=== PATIENT | male | born 1990 | race American Indian/Alaskan Native ===

== ENCOUNTER 2018-06-11 18:56 | Inpatient (IN) | payer OTHER ==
[2018-06-11] MEDS ORDERED: Naloxone 0.4 mg/ml Inj (Adult) IVP STA ×2 (19:15→19:44)
--- NOTE | 2018-06-11 19:20 | ED PDOC ---
Arrival/HPI - General Chief Complaint: Substance Abuse Time Seen by Provider: 06/11/18 19:09 Historian: Patient, Partner - History of Present Illness Narrative History of Present Illness (Text): you were treated in the ED today for hx of overdose and per your computer numerical control programmer you took percocet 3 tabs/dip/alcohol to get high and otherwise without any nausea/ vomiting/headache/dizziness/difficulty breathing/chest pain/abdomen pain/ numbness/tingling/loss of limb function/pain with urination. Time/Duration: 4-6 hours Symptom Onset: Gradual Symptom Course: Unchanged Quality: Other (no pain) Activities at Onset: Rest Context: Sitting Past Medical History - Provider Review Nursing Documentation Reviewed: Yes - Travel History Have you recently traveled outside [place] w/in the past 3 mons?: No - Infectious Disease Hx of Infectious Diseases: None - Cardiac Hx Cardiac Disorders: No - Pulmonary Hx Respiratory Disorders: No - Neurological Hx Neurological Disorder: No - Endocrine/Metabolic Hx Endocrine Disorders: No - Psychiatric Hx Psychophysiologic Disorder: No Hx Substance Use: Yes - Anesthesia Hx Anesthesia: No Family/Social History - Physician Review Nursing Documentation Reviewed: Yes Family/Social History: No Known Family HX Smoking Status: Current Some Days Smoker Hx Alcohol Use: Yes Hx Substance Use: Yes Substance used: pcp Allergies/Home Meds Allergies/Adverse Reactions: Allergies No Known Allergies Allergy (Unverified 06/11/18 19:10) Home Medications: Home Meds Medication Instructions Recorded Confirmed No Known Home Med 06/11/18 06/11/18 Review of Systems - Review of Systems Constitutional: Normal Eyes: Normal ENT: Normal Respiratory: Normal Cardiovascular: Normal Gastrointestinal: Normal Genitourinary Male: Normal Musculoskeletal: Normal Skin: Normal Neurological: Normal Endocrine: Normal Hemo/Lymphatic: Normal Psychiatric: Normal Physical Exam Vital Signs Reviewed: Yes Vital Signs Temp Pulse Resp BP Pulse Ox 06/11/18 20:27 110 H 18 131/78 98 06/11/18 19:04 98.7 F 118 H 18 149/79 96 Temperature: Afebrile Blood Pressure: Hypertensive Pulse: Tachycardic Respiratory Rate: Normal Appearance: Positive for: Well-Appearing, Non-Toxic, Comfortable Pain Distress: None Mental Status: Positive for: Lethargic - Systems Exam Head: Present: Atraumatic, Normocephalic Pupils: Present: PERRL Extroacular Muscles: Present: EOMI Conjunctiva: Present: Normal Ears: Present: Normal Mouth: Present: Moist Mucous Membranes Pharnyx: Present: Normal Nose (External): Present: Atraumatic Nose (Internal): Present: Normal Inspection Neck: Present: Normal Range of Motion, Other (no c--t-l spinal or paraspinal tenderness) Respiratory/Chest: Present: Clear to Auscultation, Good Air Exchange Cardiovascular: Present: Regular Rate and Rhythm Abdomen: No: Tenderness, Distention, Normal Bowel Sounds, Peritoneal Signs, Rebound, Guarding, McBurney's Point Tender, Rovsing's Sign Present, Hernias, Feeding Tubes, Ostomy Tubes, Mass/Organomegaly, Scars, Other Back: Present: Normal Inspection Upper Extremity: Present: Normal Inspection Lower Extremity: Present: Normal Inspection Neurological: Present: CN II-XII Intact, Motor Func Grossly Intact Skin: Present: Warm, Normal Color Psychiatric: Present: Lethargic Medical Decision Making ED Course and Treatment: you were treated in the ED today for hx of overdose and per your computer numerical control programmer you took percocet 3 tabs/dip/alcohol to get high and otherwise without any nausea/ vomiting/headache/dizziness/difficulty breathing/chest pain/abdomen pain/ numbness/tingling/loss of limb function/pain with urination. You were otherwise breathing easily, good strength/sensation, clear lungs, no abdomen tenderness, no fever temp 98.7, fast heart rate 118____, stable breathing rate 18, excellent oxygen level 96% room air, elevated blood pressure 149/79 which we recommend repeat in 2-3 days primary care office to determine further treatment , you have blood tests no infection count 37, stable blood level hemoglobin 15/ platelets 197. anion gap 23 co2 20 Cr 1.9 heart blood test 0.[address] imaging prior to anticoagluation, radiology chest xray initial no acute, ECG sinus tachycardia, narcan, intravenous fluids, zosyn, observation done in the ED. 06/11/18 20:09 06/11/18 20:10 06/11/18 20:24 d/w Dr. Funk regarding overdose, leukocytosis 37.7, maintaining airway easily but lethargic, cxr no acute findings, pending cardiology consult and ct head and ct chest/abdomen/pelvis and Dr. Funk who accepted the patient and who agreed hold off anticoagulation till imaging completed, will fu imaging and cardiology further input. 06/11/18 20:38 d/w Dr. Chan cardiology regarding troponin 0.37 and ECG sinus tachycardia, he stated VQ nuclear med scan, admit to unit and repeat troponin in the morning. 06/11/18 21:06 06/11/18 21:08 patient sitting up periodically, opens eyes, moving all extremities, but not answering questions, but easily maintaining airway. Reassessment Condition: Improving,but remains with symptoms - Lab Interpretations Lab Results: 06/11/18 19:13 06/11/18 19:13 Lab Results 06/11/18 20:15: pO2 231 H, VBG pH 7.25 L, VBG pCO2 56.0, VBG HCO3 24.6, VBG Total CO2 26.3, VBG O2 Sat (Calc) 100.6 H, VBG Base Excess -3.5 L, VBG Potassium 3.8, Glucose 48 L, Lactate 4.7 H*, FiO2 21.0, Sodium 138.0, Chloride 106.0, Venous Blood Potassium 3.8 06/11/18 20:15: Lactic Acid 4.3 H* 06/11/18 20:15: Urine Color Yellow, Urine Appearance Clear, Urine pH 6.0, Ur Specific [place] 1.025, Urine Protein 30 H, Urine Glucose (UA) Negative, Urine Ketones Negative, Urine Blood Trace-intact H, Urine Nitrate Negative, Urine Bilirubin Negative, Urine Urobilinogen 0.2, Ur Leukocyte Esterase Negative, Urine RBC 0 - 2, Urine WBC Negative, Ur Epithelial Cells None, Urine Bacteria Neg 06/11/18 19:15: POC Glucose (mg/dL) 113 H 06/11/18 19:13: Alcohol, Quantitative 23 H 06/11/18 19:13: Salicylates < 1 L, Acetaminophen < 10.0 L 06/11/18 19:13: Sodium 140, Potassium 3.9, Chloride 101, Carbon Dioxide 20 L, Anion Gap 23 H, BUN 14, Creatinine 1.9 H, Est GFR ( Amer) 51, Est GFR ( Non-Af Amer) 42, Random Glucose 139 H, Calcium 8.8, Magnesium 2.6 H, Total Bilirubin 0.7, AST 72 H, ALT 34, Alkaline Phosphatase 77, Lactate Dehydrogenase 942 H, Total Creatine Kinase 588 H, CK-MB (CK-2) 6.3 H, CK-MB (CK-2) % 1.1 L, Troponin I 0.73 H*, Total Protein 8.2, Albumin 4.8, Globulin 3.3, Albumin/ Globulin Ratio 1.5 06/11/18 19:13: PT 12.2, INR 1.07, APTT 31.0 06/11/18 19:13: WBC 37.7 H*, RBC 5.29, Hgb 15.4, Hct 44.7, MCV 84.5, MCH 29.1, MCHC 34.5, RDW 14.6 H, Plt Count 197, MPV 11.5 H, Gran % 90.8 H, Lymph % (Auto) 5.6 L, [place] % (Auto) 3.3, Eos % (Auto) 0.2 L, Baso % (Auto) 0.1, Gran # 34.21 H , Lymph # (Auto) 2.1, [place] # (Auto) 1.2 H, Eos # (Auto) 0.1, Baso # (Auto) 0.04 , Neutrophils % (Manual) 81 H, Band Neutrophils % 4 H, Lymphocytes % (Manual) 8 L, Atypical Lymphs % 1 H, Monocytes % (Manual) 2, Metamyelocytes % 4, Platelet Evaluation Normal I have reviewed the lab results: Yes - RAD Interpretation Radiology Orders: 06/11/18 19:12 CHEST PORTABLE [RAD] Stat 06/11/18 19:43 HEAD W/O CONTRAST [CT] Stat 06/11/18 20:21 CHEST,ABDOMEN, PELVIS W/O CONT [CT] Stat 06/11/18 20:35 LUNG PERF & VENT SCAN [NM] Stat Boarder Machine: ED Physician (cxr no acute) - EKG Interpretation Interpreted by ED Physician: Yes (sinus tachycardia, QT 332/QTc 465) Type: 12 lead EKG - Medication Orders Current Medication Orders: Sodium Chloride (Sodium Chloride 0.9%) 1,000 mls @ 100 mls/hr IV .Q10H HECTOR Last Admin: 06/11/18 19:30 Dose: 100 mls/hr eMAR Start Stop Document 06/11/18 19:30 AD (Rec: 06/11/18 19:47 AD [id number]) Intravenous Solution Start Date 06/11/18 Start Time 19:47 Sodium Chloride (Sodium Chloride 0.9%) 1,000 mls @ 999 mls/hr IV .Q1H1M STA Stop: 06/11/18 21:24 Last Admin: 06/11/18 20:40 Dose: 999 mls/hr eMAR Start Stop Document 06/11/18 20:40 AD (Rec: 06/11/18 20:40 AD [id number]) Intravenous Solution Start Date 06/11/18 Start Time 20:40 Discontinued Medications Piperacillin Sod/Tazobactam Sod (Zosyn 4.5 Gm In Ns 100ml) 4.5 gm in 100 mls @ 200 mls/hr IVPB STAT STA PRN Reason: Protocol Stop: 06/11/18 20:40 Last Admin: 06/11/18 20:38 Dose: 200 mls/hr eMAR Start Stop Document 06/11/18 20:38 AD (Rec: 06/11/18 20:39 AD [id number]) Intravenous Solution Start Date 06/11/18 Start Time 20:39 Naloxone HCl (Narcan) 0.4 mg IVP STAT STA Stop: 06/11/18 19:16 Last Admin: 06/11/18 19:25 Dose: 0.4 mg IVP Administration Document 06/11/18 19:25 AD (Rec: 06/11/18 19:47 AD [id number]) Charges for Administration # of IVP Administrations 1 Naloxone HCl (Narcan) 0.4 mg IVP STAT STA Stop: 06/11/18 19:45 Last Admin: 06/11/18 19:44 Dose: 0.4 mg IVP Administration Document 06/11/18 19:44 AD (Rec: 06/11/18 19:48 AD [id number]) Charges for Administration # of IVP Administrations 1 Disposition/Present on Arrival - Present on Arrival Any Indicators Present on Arrival: No History of DVT/PE: No History of Uncontrolled Diabetes: No Urinary Catheter: No History of Decub. Ulcer: No History Surgical Site Infection Following: None - Disposition Have Diagnosis and Disposition been Completed?: Yes Diagnosis: Overdose, Confusion, Leukocytosis Disposition: HOSPITALIZED Disposition Time: 21:05 Patient Plan: Admission, ICU Patient Problems: Current Active Problems Problem Status Onset Overdose Acute Confusion Acute Leukocytosis Acute Condition: SERIOUS Forms: [employer] ([place])
[2018-06-11] MEDS: Sodium Chloride 0.9% 1,000 ML IV SCH (19:30)
[2018-06-11 19:33] LABS: BASO # 0.04 K/mm3 (0.0-2.0); BASO % 0.1 % (0.0-3.0); EOS # 0.1 (0.0-0.7); EOS % 0.2 % (1.5-5.0); GRAN # 34.21 (1.4-6.5); GRAN % 90.8 % (50.0-68.0); HEMOGLOBIN 15.4 g/dL (14.0-18.0); LYMPH # 2.1 (1.2-3.4); LYMPH % 5.6 % (22.0-35.0); MEAN CELL VOLUME 84.5 fl (80.0-105.0); MEAN CORPUSCULAR HEMOGLOBIN 29.1 pg (25.0-35.0); MEAN CORPUSCULAR HGB CONC 34.5 g/dl (31.0-37.0); MEAN PLATELET VOLUME 11.5 fl (7.0-11.0); MONO # 1.2 (0.1-0.6); MONO % 3.3 % (1.0-6.0); PLATELET COUNT 197 10^3/uL (120.0-450.0); RBC 5.29 10^6/uL (3.5-6.1); RED CELL DISTRIBUTION WIDTH 14.6 % (11.5-14.5)
[2018-06-11 19:37] LABS: WHITE BLOOD COUNT 37.7 10^3/ul (4.5-11.0)
[2018-06-11 19:39] LABS: INR 1.07; PROTHROMBIN TIME 12.2 SECONDS (9.4-12.5)
[2018-06-11 19:43] LABS: ALB/GLOB RATIO 1.5 (1.1-1.8); ALBUMIN 4.8 g/dL (3.0-4.8); CALCIUM 8.8 mg/dL (8.4-10.5)
[2018-06-11] MEDS ORDERED: Piperacill/Tazo 4.5gm in NS 4.5 GM/100 ML BAG IVPB STA (20:11)
[2018-06-11 20:13] LABS: CK MB% 1.1 % (2.5-3.0); CK-MB 6.3 ng/mL (0.0-3.6); TROPONIN I 0.73 ng/mL
[2018-06-11] MEDS ORDERED: Sodium Chloride 0.9% 1,000 ML IV STA ×2 (20:24→21:09)
[2018-06-11 20:33] LABS: ATYPICAL LYMPHOCYTE 1 % (0.0-0.0); BAND 4 % (0-2); LYMPHOCYTE 8 % (22.0-35.0); METAMYELOCYTE 4 %; MONOCYTE 2 % (1.0-6.0); NEUTROPHIL 81 % (50.0-70.0)
[2018-06-11 20:34] LABS: PLATELET ESTIMATE NORMAL (NORMAL)
[2018-06-11 20:35] LABS: VENOUS BLOOD GAS BASE EXCESS -3.5 mmol/L (0.0-2.0); VENOUS BLOOD GAS PO2 231 mm/Hg (30-55); VENOUS BLOOD PH 7.25 (7.32-7.43)
[2018-06-11 20:37] LABS: URINE BILIRUBIN NEGATIVE (NEGATIVE); URINE BLOOD TRACE-INTACT (NEGATIVE); URINE GLUCOSE (UA) NEGATIVE (NEGATIVE); URINE LEUKOCYTE ESTERASE NEGATIVE Leu/uL (NEGATIVE); URINE PROTEIN 30 mg/dL (<30 mg/dL); URINE UROBILINOGEN 0.2 E.U./dL (<1 E.U./dL)
[2018-06-11 20:38] LABS: URINE APPEARANCE CLEAR (CLEAR); URINE COLOR YELLOW (YELLOW)
[2018-06-11 20:59] LABS: URINE BACTERIA NEG (NEG); URINE RBC 0 - 2 /hpf (0-2); URINE WBC NEGATIVE /hpf (0-6)
[2018-06-11 21:01] LABS: ACETAMINOPHEN < 10.0 ug/ml (10.0-20.0); SALICYLATE < 1 mg/dL (2.0-20.0)
[2018-06-11] MEDS ORDERED: Vancomycin 1gm in NS 250ml 1 GM/250 ML BAG IVPB STA (21:04)
[2018-06-11] MEDS ORDERED: Acyclovir 500 MG in Sodium Chloride 0.9% 100 ML IV STA (21:04)
[2018-06-11 21:40] LABS: BARBITURATES, UR NEGATIVE (NEGATIVE); BENZODIAZEPINES, UR NEGATIVE (NEGATIVE); OPIATES, UR NEGATIVE (NEGATIVE); PHENCYCLIDINE, UR POSITIVE (NEGATIVE)
[2018-06-11] MEDS ORDERED: Albuterol-Ipratrop 3 mg / 0.5 (3 ml) UD ONE (22:15)
[2018-06-11] MEDS ORDERED: Vancomycin 750mg 750 MG/250 ML BAG IVPB SCH (23:15)
--- NOTE | 2018-06-11 23:41 | CP.PCM.HP ---
<Damian Herron - Last Filed: 06/11/18 23:42> History of Present Illness - History of Present Illness History of Present Illness: Internal Medicine H&P (Hospitalist): Raul PGY2 CC: Dip/Percocet Overdose/Alcohol Withdrawal Mr. Acharya is a 28 year old male with a past medical history significant for PCP, tobacco and alcohol abuse who presented after he was found unresponsive in his home by his significant other. Patient is neither alert or oriented and HPI information was obtained from chart review and patients significant other. She reports that she found the patient unresponsive at his home. She notes that he took three tabs of percocet, an unknown amount of alcohol and an unknown amount of PCP. The approximate time of this is unknown at this time. Further HPI and ROS are unobtainable at this time. Of note, in the ED patient was found to be in sepsis with a leukocytosis of 37.7 , tachycardia to 118 beats/min and a lactic acidosis of 4.3. He was given one dose of IV Acyclovir, IV Vancomycin and IV Zosyn. He was also found to have an elevated troponin of 0.73. Patient was sent for V/Q scan but could not complete this as he was unable to remain without motion during the study. He was found to be positive for PCP and to have an alcohol level of 23. PMH: As stated above PSH: Denies Family History: Unknown Social History: "Light smoker" daily; Alcohol and PCP use Allergies: NKDA Home Medications: As per MAR Present on Admission - Present on Admission Any Indicators Present on Admission: No Review of Systems - Review of Systems Systems not reviewed;Unavailable: Altered Mental Status, Intoxicated Past Patient History - Infectious Disease Hx of Infectious Diseases: None - Past Social History Smoking Status: Current Some Days Smoker - CARDIAC Hx Cardiac Disorders: No - PULMONARY Hx Respiratory Disorders: No - NEUROLOGICAL Hx Neurological Disorder: No - ENDOCRINE/METABOLIC Hx Endocrine Disorders: No - PSYCHIATRIC Hx Psychophysiologic Disorder: No Hx Substance Use: Yes - SURGICAL HISTORY Hx Surgeries: No - ANESTHESIA Hx Anesthesia: No Meds Allergies/Adverse Reactions: Allergies Allergy/AdvReac Type Severity Reaction Status Date / Time No Known Allergies Allergy Unverified 06/11/18 19:10 Physical Exam - Constitutional Appears: Unkempt, Confused - Head Exam Head Exam: ATRAUMATIC - Eye Exam Eye Exam: EOMI, Normal appearance - Neck Exam Neck exam: Positive for: Full Rom - Respiratory Exam Respiratory Exam: Clear to Auscultation Bilateral, NORMAL BREATHING PATTERN. absent: Accessory Muscle Use, Rales, Rhonchi, Wheezes - Cardiovascular Exam Cardiovascular Exam: Tachycardia, RRR, +S1, +S2 - GI/Abdominal Exam GI & Abdominal Exam: Normal Bowel Sounds, Soft. absent: Tenderness - Extremities Exam Extremities exam: Positive for: full ROM. Negative for: calf tenderness, joint swelling, pedal edema, tenderness - Neurological Exam Neurological exam: Altered - Skin Skin Exam: Dry, Intact, Warm Results - Vital Signs Recent Vital Signs: Last Vital Signs Temp 98.7 F 06/11/18 19:04 Pulse 110 H 06/11/18 20:27 Resp 18 06/11/18 20:27 BP 131/78 06/11/18 20:27 Pulse Ox 98 06/11/18 20:27 - Labs Result Diagrams: 06/11/18 19:13 06/11/18 19:13 Assessment & Plan - Assessment and Plan (Free Text) Assessment: 28 year old male with a past medical history significant for PCP, tobacco and alcohol abuse who presented after he was found unresponsive in his home by his significant other. Patient is neither alert or oriented and HPI information was obtained from chart review and patients significant other. In the ED patient was found to be in sepsis with a leukocytosis of 37.7, tachycardia to 118 beats/ min and a lactic acidosis of 4.3. He was given one dose of IV Acyclovir, IV Vancomycin and IV Zosyn. He was also found to have an elevated troponin of 0.73. Patient was sent for V/Q scan but could not complete this as he was unable to remain without motion during the study. Plan: 1. Sepsis -Source not yet determined -CT Head, CT Abdomen/Pelvis and Chest X-Ray pending official radiologist interpretation -UA without signs of UTI -IV Vancomycin (Renally Adjust Dose for GFR of 54) and IV Zosyn -Normal Saline at 100mls/hr -Blood, Urine and MRSA cultures pending -HIV, Hepatitis Panel, and Procalcitonin pending -ID Consulted, all recommendations appreciated 2. Polysubstance Abuse/Overdose -UDS positive for PCP -Alcohol level 23 -Ativan 1mg Q6 IVP PRN -Aspiration, Fall and Seizure precautions -CIWA Q4 -Poison Control recommendations pending 3. Elevated Troponin -Initial troponin positive at 0.73 -Q6H serial troponins pending -EKG showed sinus tachycardia -V/Q scan pending for AM -Cardiology consulted, all recommendations appreciated 4. RESHMA -Creatinine of 1.9 (no baseline for comparison) -Continue to monitor with daily CMP's -Nephrology consulted, all recommendations appreciated GI Prophylaxis: Protonix DVT Prophylaxis: SCD's Disposition: Patient will be admitted to ICU for further management at this time. Patient seen and case discussed with attending, Dr. Funk. - Date & Time Date: 06/12/18 Time: 00:00 Decision To Admit - Pt Status Changed To: Hospital Disposition Of: Inpatient Admission - Admit Certification Admit to Inpatient:: After my assessment, the patient will require hospitalization for at least two midnights. This is because of the severity of symptoms shown, intensity of services needed, and/or the medical risk in this patient being treated as an outpatient. - . Bed Request Type: Critical Care <Tisha Funk - Last Filed: 06/12/18 02:59> Results - Vital Signs Recent Vital Signs: Last Vital Signs Temp 98.6 F 06/11/18 23:31 Pulse 119 H 06/12/18 02:00 Resp 18 06/11/18 22:30 BP 134/82 06/11/18 22:30 Pulse Ox 100 06/11/18 22:30 - Labs Result Diagrams: 06/11/18 19:13 06/11/18 19:13 Labs: Laboratory Results - last 24 hr 06/12/18 00:10 pO2 60 H VBG pH 7.22 L VBG pCO2 59.0 VBG HCO3 24.1 VBG Total CO2 25.9 VBG O2 Sat (Calc) 91.6 H VBG Base Excess -4.5 L VBG Potassium 4.6 Sodium 139.0 Chloride 105.0 Glucose 86 Lactate 1.2 FiO2 21.0 Venous Blood Potassium 4.6 Attending/Attestation - Attestation I have personally seen and examined this patient.: Yes I have fully participated in the care of the patient.: Yes I have reviewed all pertinent clinical information: Yes Notes (Text): 06/12/18 02:55 Patient was seen when he was in bed # 8 in the ER. Medical record was reviewed. Agree with history,physical examination, assessment and plan. Patient opens eyes on command,moves head,does not communicate. 28 year old male admitted with Confusion Drug [id number]? Leukocytosis ETOH intoxication.-23 PCP Rhabdomyolysis. Sepsis Renal insufficiency -cr 1.9 Metabolic acidosis HCO3 -20 CXR-Large gastric bubble CT Chest -bilateral infiltrate. Granulocytosis-90% Coag-NL Anion gap 23 AST 72 LDH 942 CK -588 Trop-0.73 Lactic acid 4.3 PMH: Substance abuse. ETOH Tobacco abuse. will get [facility] Neuroconsult. Nephrology consult. Cardiology consult Psych consult when stable and alert,orinted. EKG ,trop in AM. ID consult. VQ scan CIWA protocol seizure precations.
[2018-06-12] MEDS: Sodium Chloride 0.9% 1,000 ML IV SCH (00:19)
[2018-06-12] MEDS: Piperacill/Tazo 4.5gm in NS 4.5 GM/100 ML BAG IVPB SCH ×2 (00:28→06:33)
[2018-06-12 01:11] LABS: VENOUS BLOOD GAS BASE EXCESS -4.5 mmol/L (0.0-2.0); VENOUS BLOOD GAS PO2 60 mm/Hg (30-55); VENOUS BLOOD PH 7.22 (7.32-7.43)
[2018-06-12 03:12] LABS: BASO # 0.01 K/mm3 (0.0-2.0); GRAN # 20.15 (1.4-6.5); GRAN % 89.4 % (50.0-68.0); HEMOGLOBIN 13.9 g/dL (14.0-18.0); LYMPH # 1.5 (1.2-3.4); LYMPH % 6.8 % (22.0-35.0); MEAN CORPUSCULAR HEMOGLOBIN 28.5 pg (25.0-35.0); MEAN PLATELET VOLUME 11.7 fl (7.0-11.0); MONO # 0.9 (0.1-0.6); MONO % 3.8 % (1.0-6.0); RBC 4.87 10^6/uL (3.5-6.1); RED CELL DISTRIBUTION WIDTH 14.7 % (11.5-14.5); WHITE BLOOD COUNT 22.6 10^3/ul (4.5-11.0)
[2018-06-12 03:26] LABS: ALB/GLOB RATIO 1.4 (1.1-1.8); ALBUMIN 4.2 g/dL (3.0-4.8); ALT/SGPT 42 U/L (7-56); AST/SGOT 94 U/L (17-59); BLOOD UREA NITROGEN 13 mg/dL (7-21); CALCIUM 7.9 mg/dL (8.4-10.5); GFR NON-AFRICAN AMERICAN > 60
[2018-06-12] MEDS ORDERED: Folic Acid 1 MG, Thiamine 100 MG, Multivitamin (MVI) 10 ML in Dextrose 5% In Water 1,00... IV SCH (04:30)
[2018-06-12 05:08] LABS: TROPONIN I 3.09 ng/mL
[2018-06-12] MEDS: Heparin25000 units/250ml 1/2NS 25,000 UNITS/250 ML BAG IV SCH (06:21)
[2018-06-12] MEDS ORDERED: Dexmedetomidine 400mcg/100mL 400 MCG/100 ML BOTTLE IV PRN (07:44)
[2018-06-12] MEDS ORDERED: Insulin Regular 1 UNITS/0.01 ML ML IVP ONE (08:00)
[2018-06-12] MEDS ORDERED: Dextrose 50% SYRINGE Inj (50 ml) IVP ONE ×3 (08:00→17:59)
[2018-06-12 08:03] LABS: ARTERIAL BLOOD GAS HCO3 23.3 mmol/L (21-28); ARTERIAL BLOOD GAS O2 SAT 98.9 % (95-98); ARTERIAL BLOOD GAS PCO2 57 mm/Hg (35-45); ARTERIAL BLOOD GAS PH 7.22 (7.35-7.45)
[2018-06-12 08:27] LABS: CK MB% 2.3 % (2.5-3.0); CK-MB 18.5 ng/mL (0.0-3.6)
--- NOTE | 2018-06-12 08:44 | CP.CCUPN ---
<Raven Sargent - Last Filed: 06/12/18 13:37> CCU Subjective - Physician Review Subjective (Free Text): 06/12/18 13:37 Patient seen and examined at bedside. Patient responds to touch, moving all extremities, agitated on 1:1, started precedex drip. Patient arouses, oriented to self, place. ROS limited to patient's drowsy status. CCU Objective - Vital Signs / Intake & Output Vital Signs (Last 4 hours): Vital Signs Temp Pulse 06/12/18 08:22 103 H 06/12/18 06:20 98.3 F 06/12/18 06:00 110 H Intake and Output (Last 8hrs): Intake & Output 06/11/18 06/12/18 06/12/18 22:59 06:59 14:59 Intake Total 500 Output Total 100 Balance 400 Weight 160 lb 160 lb Intake: IV 500 Left Forearm 0 Right Hand 500 Output: Urine 100 Condom 100 - Physical Exam Head: Positive for: Atraumatic, Normocephalic Pupils: Positive for: PERRL Extroacular Muscles: Positive for: EOMI Conjunctiva: Positive for: Normal Ears: Positive for: Normal Mouth: Positive for: Moist Mucous Membranes Pharnyx: Positive for: Normal Nose (External): Positive for: Atraumatic Nose (Internal): Positive for: Normal Inspection Neck: Positive for: Normal Range of Motion Respiratory/Chest: Positive for: Clear to Auscultation, Good Air Exchange Cardiovascular: Positive for: Regular Rate and Rhythm Abdomen: Positive for: Normal Bowel Sounds. Negative for: Tenderness, Distention, Peritoneal Signs, Rebound, Guarding, McBurney's Point Tender, Rovsing's Sign Present, Hernias, Feeding Tubes, Ostomy Tubes, Mass/Organomegaly , Scars, Other Back: Positive for: Normal Inspection Upper Extremity: Positive for: Normal Inspection Lower Extremity: Positive for: Normal Inspection Neurological: Positive for: GCS=15, Motor Func Grossly Intact, Other (drowsy now , on precedex) Skin: Positive for: Warm, Normal Color Psychiatric: Positive for: Lethargic (arouses to touch, moving all extremities, oriented to self, place.) - Medications Active Medications: Active Medications Generic Name Dose Route Start Last Admin Trade Name Freq PRN Reason Stop Dose Admin Vancomycin HCl 750 mg in 250 mls @ 167 mls/hr 06/12/18 10:00 Vancomycin 750 Mg In Ns IVPB Q12 HECTOR Protocol Folic Acid 1 mg/ Thiamine HCl 1,011.2 mls @ 100 mls/hr 06/12/18 04:30 05:10 100 mg/ Multivitamins/Vitamin IV 100 mls/hr C 10 ml/ Dextrose .Q10H7M HECTOR Administration Heparin Sodium/Sodium Chloride 25,000 units in 250 mls @ 8.709 mls/hr 05:45 06/12/18 06:21 Heparin 14363 Units/250ml 1/2 Normal Saline IV 12 units/kg/hr .Q24H HECTOR 8.709 mls/hr Protocol Administration 12 UNITS/KG/HR Dexmedetomidine HCl 400 mcg in 100 mls @ 3.629 mls/hr 06/12/18 07:44 Precedex 400mcg/100ml IV .Q24H PRN Agitation Protocol 0.2 MCG/KG/HR Lactated Ringer's 1,000 mls @ 150 mls/hr 06/12/18 08:00 Lactated Ringer's IV .Q6H40M [facility] Calcium Gluconate 1,000 mg/ 110 mls @ 110 mls/hr 06/12/18 08:32 Sodium Chloride IVPB 06/12/18 09:31 ONCE ONE Lorazepam 1 mg 06/11/18 23:40 06/12/18 04:58 Ativan IVP 1 mg Q6H PRN Administration Symptoms of alcohol withdrawl Protocol Pantoprazole Sodium 40 mg 06/12/18 10:00 Protonix Inj IVP DAILY HECTOR - Patient Studies Lab Studies: Lab Studies 06/12/18 06/12/18 06/12/18 Range/Units 07:53 03:00 03:00 WBC (4.5-11.0) 10^3/ul RBC (3.5-6.1) 10^6/uL Hgb (14.0-18.0) g/dL Hct (42.0-52.0) % MCV (80.0-105.0) fl MCH (25.0-35.0) pg MCHC (31.0-37.0) g/dl RDW (11.5-14.5) % Plt Count (120.0-450.0) 10^3/uL MPV (7.0-11.0) fl Gran % (50.0-68.0) % Lymph % (Auto) (22.0-35.0) % [place] % (Auto) (1.0-6.0) % Eos % (Auto) (1.5-5.0) % Baso % (Auto) (0.0-3.0) % Gran # (1.4-6.5) Lymph # (Auto) (1.2-3.4) [place] # (Auto) (0.1-0.6) Eos # (Auto) (0.0-0.7) Baso # (Auto) (0.0-2.0) K/mm3 pCO2 57 H (35-45) mm/Hg pO2 115.0 H (30-55) mm/Hg HCO3 23.3 (21-28) mmol/L ABG pH 7.22 L (7.35-7.45) ABG Total CO2 25.0 (22-28) mmol.L ABG O2 Saturation 98.9 H (95-98) % ABG Base Excess -5.2 L (-2.0-3.0) mmol/L ABG Potassium 4.0 (3.6-5.2) mmol/L VBG pH (7.32-7.43) VBG pCO2 (40-60) VBG HCO3 (21-28) mmol/l VBG Total CO2 (22-28) mmol.L VBG O2 Sat (Calc) (40-65) % VBG Base Excess (0.0-2.0) mmol/L VBG Potassium (3.6-5.2) mmol/L Sodium 139.0 141 (132-148) mmol/L Chloride 109.0 H 109 H (98-107) mmol/L Glucose 98 (75-110) mg/dl Lactate 0.8 (0.7-2.1) mmol/L FiO2 32.0 % Potassium 5.1 H (3.6-5.0) mmol/L Carbon Dioxide 26 (21-33) mmol/L Anion Gap 11 (10-20) BUN 13 (7-21) mg/dL Creatinine 1.2 (0.8-1.5) mg/dl Est GFR ( Amer) > 60 Est GFR (Non-Af Amer) > 60 Random Glucose 100 (70-110) mg/dL Calcium 7.9 L (8.4-10.5) mg/dL Phosphorus 5.2 H (2.5-4.5) mg/dL Magnesium 1.9 (1.7-2.2) mg/dL Total Bilirubin 0.8 (0.2-1.3) mg/dL AST 94 H D (17-59) U/L ALT 42 (7-56) U/L Alkaline Phosphatase 65 (38-126) U/L Total Creatine Kinase 803 H (35-230) U/L CK-MB (CK-2) 18.5 H (0.0-3.6) ng/mL CK-MB (CK-2) % 2.3 L (2.5-3.0) % Troponin I 3.09 H* D ng/mL Total Protein 7.3 (5.8-8.3) g/dL Albumin 4.2 (3.0-4.8) g/dL Globulin 3.1 gm/dL Albumin/Globulin Ratio 1.4 (1.1-1.8) Arterial Blood Potassium 4.0 (3.6-5.2) mmol/L Venous Blood Potassium (3.6-5.2) mmol/L 06/12/18 06/12/18 Range/Units 03:00 00:10 WBC 22.6 H D (4.5-11.0) 10^3/ul RBC 4.87 (3.5-6.1) 10^6/uL Hgb 13.9 L (14.0-18.0) g/dL Hct 40.9 L (42.0-52.0) % MCV 84.0 (80.0-105.0) fl MCH 28.5 (25.0-35.0) pg MCHC 34.0 (31.0-37.0) g/dl RDW 14.7 H (11.5-14.5) % Plt Count 199 (120.0-450.0) 10^3/uL MPV 11.7 H (7.0-11.0) fl Gran % 89.4 H (50.0-68.0) % Lymph % (Auto) 6.8 L (22.0-35.0) % [place] % (Auto) 3.8 (1.0-6.0) % Eos % (Auto) 0.0 L (1.5-5.0) % Baso % (Auto) 0.0 (0.0-3.0) % Gran # 20.15 H (1.4-6.5) Lymph # (Auto) 1.5 (1.2-3.4) [place] # (Auto) 0.9 H (0.1-0.6) Eos # (Auto) 0.0 (0.0-0.7) Baso # (Auto) 0.01 (0.0-2.0) K/mm3 pCO2 (35-45) mm/Hg pO2 60 H (30-55) mm/Hg HCO3 (21-28) mmol/L ABG pH (7.35-7.45) ABG Total CO2 (22-28) mmol.L ABG O2 Saturation (95-98) % ABG Base Excess (-2.0-3.0) mmol/L ABG Potassium (3.6-5.2) mmol/L VBG pH 7.22 L (7.32-7.43) VBG pCO2 59.0 (40-60) VBG HCO3 24.1 (21-28) mmol/l VBG Total CO2 25.9 (22-28) mmol.L VBG O2 Sat (Calc) 91.6 H (40-65) % VBG Base Excess -4.5 L (0.0-2.0) mmol/L VBG Potassium 4.6 (3.6-5.2) mmol/L Sodium 139.0 (132-148) mmol/L Chloride 105.0 (98-107) mmol/L Glucose 86 (75-110) mg/dl Lactate 1.2 (0.7-2.1) mmol/L FiO2 21.0 % Potassium (3.6-5.0) mmol/L Carbon Dioxide (21-33) mmol/L Anion Gap (10-20) BUN (7-21) mg/dL Creatinine (0.8-1.5) mg/dl Est GFR ( Amer) Est GFR (Non-Af Amer) Random Glucose (70-110) mg/dL Calcium (8.4-10.5) mg/dL Phosphorus (2.5-4.5) mg/dL Magnesium (1.7-2.2) mg/dL Total Bilirubin (0.2-1.3) mg/dL AST (17-59) U/L ALT (7-56) U/L Alkaline Phosphatase (38-126) U/L Total Creatine Kinase (35-230) U/L CK-MB (CK-2) (0.0-3.6) ng/mL CK-MB (CK-2) % (2.5-3.0) % Troponin I ng/mL Total Protein (5.8-8.3) g/dL Albumin (3.0-4.8) g/dL Globulin gm/dL Albumin/Globulin Ratio (1.1-1.8) Arterial Blood Potassium (3.6-5.2) mmol/L Venous Blood Potassium 4.6 (3.6-5.2) mmol/L Laboratory Results - last 24 hr 06/12/18 06/12/18 06/12/18 00:10 03:00 03:00 WBC 22.6 H D RBC 4.87 Hgb 13.9 L Hct 40.9 L MCV 84.0 MCH 28.5 MCHC 34.0 RDW 14.7 H Plt Count 199 MPV 11.7 H Gran % 89.4 H Lymph % (Auto) 6.8 L [place] % (Auto) 3.8 Eos % (Auto) 0.0 L Baso % (Auto) 0.0 Gran # 20.15 H Lymph # (Auto) 1.5 [place] # (Auto) 0.9 H Eos # (Auto) 0.0 Baso # (Auto) 0.01 pCO2 pO2 60 H HCO3 ABG pH ABG Total CO2 ABG O2 Saturation ABG Base Excess ABG Potassium VBG pH 7.22 L VBG pCO2 59.0 VBG HCO3 24.1 VBG Total CO2 25.9 VBG O2 Sat (Calc) 91.6 H VBG Base Excess -4.5 L VBG Potassium 4.6 Sodium 139.0 141 Chloride 105.0 109 H Glucose 86 Lactate 1.2 FiO2 21.0 Potassium 5.1 H Carbon Dioxide 26 Anion Gap 11 BUN 13 Creatinine 1.2 Est GFR ( Amer) > 60 Est GFR (Non-Af Amer) > 60 Random Glucose 100 Calcium 7.9 L Phosphorus 5.2 H Magnesium 1.9 Total Bilirubin 0.8 AST 94 H D ALT 42 Alkaline Phosphatase 65 Total Creatine Kinase CK-MB (CK-2) CK-MB (CK-2) % Troponin I 3.09 H* D Total Protein 7.3 Albumin 4.2 Globulin 3.1 Albumin/Globulin Ratio 1.4 Arterial Blood Potassium Venous Blood Potassium 4.6 06/12/18 06/12/18 03:00 07:53 WBC RBC Hgb Hct MCV MCH MCHC RDW Plt Count MPV Gran % Lymph % (Auto) [place] % (Auto) Eos % (Auto) Baso % (Auto) Gran # Lymph # (Auto) [place] # (Auto) Eos # (Auto) Baso # (Auto) pCO2 57 H pO2 115.0 H HCO3 23.3 ABG pH 7.22 L ABG Total CO2 25.0 ABG O2 Saturation 98.9 H ABG Base Excess -5.2 L ABG Potassium 4.0 VBG pH VBG pCO2 VBG HCO3 VBG Total CO2 VBG O2 Sat (Calc) VBG Base Excess VBG Potassium Sodium 139.0 Chloride 109.0 H Glucose 98 Lactate 0.8 FiO2 32.0 Potassium Carbon Dioxide Anion Gap BUN Creatinine Est GFR ( Amer) Est GFR (Non-Af Amer) Random Glucose Calcium Phosphorus Magnesium Total Bilirubin AST ALT Alkaline Phosphatase Total Creatine Kinase 803 H CK-MB (CK-2) 18.5 H CK-MB (CK-2) % 2.3 L Troponin I Total Protein Albumin Globulin Albumin/Globulin Ratio Arterial Blood Potassium 4.0 Venous Blood Potassium EKG/Cardiology Studies: Cardiology / EKG Studies 06/12/18 EKG [ELECTROCARDIOGRAM] Routine Comment: Reason For Exam: elevated trop 06/12/18 06:00 ELECTROCARDIOGRAM Routine Comment: Reason For Exam: Chest Pain Review of Systems - Review of Systems Systems not reviewed;Unavailable: Other (on precedex drip) Assessment/Plan - Assessment and Plan (Free Text) Assessment: 28 year old male with PMH polysubstance/ETOH abuse, presents after being found unresponsive s/p PCP, alcohol use, complicated by bilateral aspiration pneumonia , severe sepsis, respiratory acidosis 2/2 respiratory suppression from drug use , troponin leak. Patient more awake now, however agitated, started on precedex drip. patient also started on bipap for respiratory acidosis: Neuro: Remains drowsy, on precedex. UDS pos for PCP, etoh 23. Neuro checks, seizure precautions. Cont to monitor. CIWA protocol. ativan prn. Cardio: Sinus tachycardia 118 on admission. trops 0.73-3.09-2.10. Patient's HR still remains 90s-100s. On heparin drip. Bedside echo by Dr Jeter did not reveal right heart strain. Patient currently unstable to undergo V/Q out of ICU. Cardio consulted. F/u recs. Will monitor Maintain MAP>65 Resp: On Bipap 18/6, R 20, 30%FiO2 ABG this AM showed respiratory acidosis CT chest shows b/l infiltrates. Vanc and zosyn per ID. received vanc, zosyn, acyclovir in ED will monitor ABG Maintain sats >96% GI: NPO. Protonix Renal: Elevated Cr 1.9 on admission, elevated CPK 800s, with elevated potassium levels. received 2L NS bolus in ED. LR @ 150, in setting of hyperchloremia (switched from NS). trend CPK Nephro on board. F/u recs. ID: afebrile, leukocytosis 22.6 (trending down) ID on board. f/u procal, blood, urine cultures On Vanc and zosyn per ID. Received vanc, zosyn, acyclovir in ED F/u HIV, atypical PNA - legionella, mycoplasma. Monitor PPX: Protonix, heparin drip Case seen and discussed with Dr Jeter. <Gilberto Jeter - Last Filed: 06/12/18 15:38> CCU Objective - Vital Signs / Intake & Output Vital Signs (Last 4 hours): Vital Signs Temp Pulse Resp BP Pulse Ox 06/12/18 14:00 94 H 06/12/18 13:32 94 H 06/12/18 13:20 82 20 99 06/12/18 13:10 86 20 99 06/12/18 13:00 89 22 116/53 L 99 06/12/18 12:50 89 20 99 06/12/18 12:40 87 20 99 06/12/18 12:30 90 20 99 06/12/18 12:20 91 H 20 99 06/12/18 12:10 91 H 20 98 06/12/18 12:00 97.8 F 90 21 116/55 L 99 06/12/18 11:50 92 H 20 99 06/12/18 11:40 90 20 99 Intake and Output (Last 8hrs): Intake & Output 06/12/18 06/12/18 06/12/18 06:59 14:59 22:59 Intake Total 500 94 Output Total 100 Balance 400 94 Weight 160 lb Intake: IV 500 94 Left Forearm 0 Right Hand 500 Output: Urine 100 Condom 100 - Medications Active Medications: Active Medications Generic Name Dose Route Start Last Admin Trade Name Freq PRN Reason Stop Dose Admin Vancomycin HCl 750 mg in 250 mls @ 167 mls/hr 06/12/18 10:00 06/12/18 10:18 Vancomycin 750 Mg In Ns IVPB 167 mls/hr Q12 HECTOR Administration Protocol Heparin Sodium/Sodium Chloride 25,000 units in 250 mls @ 8.709 mls/hr 05:45 06/12/18 13:09 Heparin 92905 Units/250ml 1/2 Normal Saline IV 14 units/kg/hr .Q24H HECTOR 10.161 mls/hr Protocol Titration 12 UNITS/KG/HR Dexmedetomidine HCl 400 mcg in 100 mls @ 3.629 mls/hr 06/12/18 07:44 08:51 Precedex 400mcg/100ml IV 0.2 mcg/kg/hr .Q24H PRN 3.629 mls/hr Agitation Administration Protocol 0.2 MCG/KG/HR Lactated Ringer's 1,000 mls @ 150 mls/hr 06/12/18 08:00 06/12/18 08:49 Lactated Ringer's IV 150 mls/hr .Q6H40M HECTOR Administration Piperacillin Sod/Tazobactam Sod 100 mls @ 200 mls/hr 06/12/18 18:00 Zosyn 3.375 In Ns 100ml IVPB 06/20/18 18:01 Q6 HECTOR Protocol Lorazepam 1 mg 06/11/18 23:40 06/12/18 04:58 Ativan IVP 1 mg Q6H PRN Administration Symptoms of alcohol withdrawl Protocol Pantoprazole Sodium 40 mg 06/12/18 10:00 06/12/18 09:05 Protonix Inj IVP 40 mg DAILY HECTOR Administration - Patient Studies Lab Studies: Lab Studies 06/12/18 06/12/1806/12/18 Range/Units 14:59 12:16 11:00 WBC (4.5-11.0) 10^3/ul RBC (3.5-6.1) 10^6/uL Hgb (14.0-18.0) g/dL Hct (42.0-52.0) % MCV (80.0-105.0) fl MCH (25.0-35.0) pg MCHC (31.0-37.0) g/dl RDW (11.5-14.5) % Plt Count (120.0-450.0) 10^3/uL MPV (7.0-11.0) fl Gran % (50.0-68.0) % Lymph % (Auto) (22.0-35.0) % [place] % (Auto) (1.0-6.0) % Eos % (Auto) (1.5-5.0) % Baso % (Auto) (0.0-3.0) % Gran # (1.4-6.5) Lymph # (Auto) (1.2-3.4) [place] # (Auto) (0.1-0.6) Eos # (Auto) (0.0-0.7) Baso # (Auto) (0.0-2.0) K/mm3 APTT 89.2 H (25.1-36.5) Seconds D-Dimer, Quantitative 923 H (0-243) ng/mlDDU pCO2 (35-45) mm/Hg pO2 (30-55) mm/Hg HCO3 (21-28) mmol/L ABG pH (7.35-7.45) ABG Total CO2 (22-28) mmol.L ABG O2 Saturation (95-98) % ABG O2 Content (15-23) ML/dl ABG Base Excess (-2.0-3.0) mmol/L ABG Hemoglobin (11.7-17.4) g/dL ABG Carboxyhemoglobin (0.5-1.5) % POC ABG HHb (Measured) (0-5) % ABG Methemoglobin (0.0-3.0) % ABG O2 Capacity (16-24) mL/dl ABG Potassium (3.6-5.2) mmol/L VBG pH (7.32-7.43) VBG pCO2 (40-60) VBG HCO3 (21-28) mmol/l VBG Total CO2 (22-28) mmol.L VBG O2 Sat (Calc) (40-65) % VBG Base Excess (0.0-2.0) mmol/L VBG Potassium (3.6-5.2) mmol/L Hgb O2 Saturation (95.0-98.0) % Sodium 142 (132-148) mmol/L Chloride 110 H (98-107) mmol/L Glucose (75-110) mg/dl Lactate (0.7-2.1) mmol/L FiO2 % Potassium 4.3 (3.6-5.0) mmol/L Carbon Dioxide 24 (21-33) mmol/L Anion Gap 12 (10-20) BUN 14 (7-21) mg/dL Creatinine 1.4 (0.8-1.5) mg/dl Est GFR ( Amer) > 60 Est GFR (Non-Af Amer) 60 Random Glucose 70 (70-110) mg/dL Calcium 8.8 (8.4-10.5) mg/dL Phosphorus (2.5-4.5) mg/dL Magnesium (1.7-2.2) mg/dL Total Bilirubin 0.8 (0.2-1.3) mg/dL AST 82 H (17-59) U/L ALT 41 (7-56) U/L Alkaline Phosphatase 62 (38-126) U/L Total Creatine Kinase (35-230) U/L CK-MB (CK-2) (0.0-3.6) ng/mL CK-MB (CK-2) % (2.5-3.0) % Troponin I ng/mL Total Protein 7.0 (5.8-8.3) g/dL Albumin 4.1 (3.0-4.8) g/dL Globulin 3.0 gm/dL Albumin/Globulin Ratio 1.4 (1.1-1.8) Procalcitonin (0.19-0.49) NG/ML Arterial Blood Potassium (3.6-5.2) mmol/L Venous Blood Potassium (3.6-5.2) mmol/L 06/12/18 06/12/18 06/12/18 Range/Units 10:50 10:00 07:53 WBC (4.5-11.0) 10^3/ul RBC (3.5-6.1) 10^6/uL Hgb (14.0-18.0) g/dL Hct (42.0-52.0) % MCV (80.0-105.0) fl MCH (25.0-35.0) pg MCHC (31.0-37.0) g/dl RDW (11.5-14.5) % Plt Count (120.0-450.0) 10^3/uL MPV (7.0-11.0) fl Gran % (50.0-68.0) % Lymph % (Auto) (22.0-35.0) % [place] % (Auto) (1.0-6.0) % Eos % (Auto) (1.5-5.0) % Baso % (Auto) (0.0-3.0) % Gran # (1.4-6.5) Lymph # (Auto) (1.2-3.4) [place] # (Auto) (0.1-0.6) Eos # (Auto) (0.0-0.7) Baso # (Auto) (0.0-2.0) K/mm3 APTT (25.1-36.5) Seconds D-Dimer, Quantitative (0-243) ng/mlDDU pCO2 58 H 57 H (35-45) mm/Hg pO2 134.0 H 115.0 H (30-55) mm/Hg HCO3 27.3 23.3 (21-28) mmol/L ABG pH 7.28 L 7.22 L (7.35-7.45) ABG Total CO2 29.1 H 25.0 (22-28) mmol.L ABG O2 Saturation 99.8 H 98.9 H (95-98) % ABG O2 Content 18.3 (15-23) ML/dl ABG Base Excess -0.6 -5.2 L (-2.0-3.0) mmol/L ABG Hemoglobin 13.3 (11.7-17.4) g/dL ABG Carboxyhemoglobin 2.1 H (0.5-1.5) % POC ABG HHb (Measured) 0.2 (0-5) % ABG Methemoglobin 1.1 (0.0-3.0) % ABG O2 Capacity 18.3 (16-24) mL/dl ABG Potassium 4.0 (3.6-5.2) mmol/L VBG pH (7.32-7.43) VBG pCO2 (40-60) VBG HCO3 (21-28) mmol/l VBG Total CO2 (22-28) mmol.L VBG O2 Sat (Calc) (40-65) % VBG Base Excess (0.0-2.0) mmol/L VBG Potassium (3.6-5.2) mmol/L Hgb O2 Saturation 96.6 (95.0-98.0) % Sodium 139.0 (132-148) mmol/L Chloride 109.0 H (98-107) mmol/L Glucose 98 (75-110) mg/dl Lactate 0.8 (0.7-2.1) mmol/L FiO2 30.0 32.0 % Potassium (3.6-5.0) mmol/L Carbon Dioxide (21-33) mmol/L Anion Gap (10-20) BUN (7-21) mg/dL Creatinine (0.8-1.5) mg/dl Est GFR ( Amer) Est GFR (Non-Af Amer) Random Glucose (70-110) mg/dL Calcium (8.4-10.5) mg/dL Phosphorus (2.5-4.5) mg/dL Magnesium (1.7-2.2) mg/dL Total Bilirubin (0.2-1.3) mg/dL AST (17-59) U/L ALT (7-56) U/L Alkaline Phosphatase (38-126) U/L Total Creatine Kinase 897 H (35-230) U/L CK-MB (CK-2) 16.7 H (0.0-3.6) ng/mL CK-MB (CK-2) % 1.9 L (2.5-3.0) % Troponin I 2.10 H* D ng/mL Total Protein (5.8-8.3) g/dL Albumin (3.0-4.8) g/dL Globulin gm/dL Albumin/Globulin Ratio (1.1-1.8) Procalcitonin (0.19-0.49) NG/ML Arterial Blood Potassium 4.0 (3.6-5.2) mmol/L Venous Blood Potassium (3.6-5.2) mmol/L 06/12/18 06/12/18 06/12/18 Range/Units 03:00 03:00 03:00 WBC 22.6 H D (4.5-11.0) 10^3/ul RBC 4.87 (3.5-6.1) 10^6/uL Hgb 13.9 L (14.0-18.0) g/dL Hct 40.9 L (42.0-52.0) % MCV 84.0 (80.0-105.0) fl MCH 28.5 (25.0-35.0) pg MCHC 34.0 (31.0-37.0) g/dl RDW 14.7 H (11.5-14.5) % Plt Count 199 (120.0-450.0) 10^3/uL MPV 11.7 H (7.0-11.0) fl Gran % 89.4 H (50.0-68.0) % Lymph % (Auto) 6.8 L (22.0-35.0) % [place] % (Auto) 3.8 (1.0-6.0) % Eos % (Auto) 0.0 L (1.5-5.0) % Baso % (Auto) 0.0 (0.0-3.0) % Gran # 20.15 H (1.4-6.5) Lymph # (Auto) 1.5 (1.2-3.4) [place] # (Auto) 0.9 H (0.1-0.6) Eos # (Auto) 0.0 (0.0-0.7) Baso # (Auto) 0.01 (0.0-2.0) K/mm3 APTT (25.1-36.5) Seconds D-Dimer, Quantitative (0-243) ng/mlDDU pCO2 (35-45) mm/Hg pO2 (30-55) mm/Hg HCO3 (21-28) mmol/L ABG pH (7.35-7.45) ABG Total CO2 (22-28) mmol.L ABG O2 Saturation (95-98) % ABG O2 Content (15-23) ML/dl ABG Base Excess (-2.0-3.0) mmol/L ABG Hemoglobin (11.7-17.4) g/dL ABG Carboxyhemoglobin (0.5-1.5) % POC ABG HHb (Measured) (0-5) % ABG Methemoglobin (0.0-3.0) % ABG O2 Capacity (16-24) mL/dl ABG Potassium (3.6-5.2) mmol/L VBG pH (7.32-7.43) VBG pCO2 (40-60) VBG HCO3 (21-28) mmol/l VBG Total CO2 (22-28) mmol.L VBG O2 Sat (Calc) (40-65) % VBG Base Excess (0.0-2.0) mmol/L VBG Potassium (3.6-5.2) mmol/L Hgb O2 Saturation (95.0-98.0) % Sodium 141 (132-148) mmol/L Chloride 109 H (98-107) mmol/L Glucose (75-110) mg/dl Lactate (0.7-2.1) mmol/L FiO2 % Potassium 5.1 H (3.6-5.0) mmol/L Carbon Dioxide 26 (21-33) mmol/L Anion Gap 11 (10-20) BUN 13 (7-21) mg/dL Creatinine 1.2 (0.8-1.5) mg/dl Est GFR ( Amer) > 60 Est GFR (Non-Af Amer) > 60 Random Glucose 100 (70-110) mg/dL Calcium 7.9 L (8.4-10.5) mg/dL Phosphorus 5.2 H (2.5-4.5) mg/dL Magnesium 1.9 (1.7-2.2) mg/dL Total Bilirubin 0.8 (0.2-1.3) mg/dL AST 94 H D (17-59) U/L ALT 42 (7-56) U/L Alkaline Phosphatase 65 (38-126) U/L Total Creatine Kinase 803 H (35-230) U/L CK-MB (CK-2) 18.5 H (0.0-3.6) ng/mL CK-MB (CK-2) % 2.3 L (2.5-3.0) % Troponin I 3.09 H* D ng/mL Total Protein 7.3 (5.8-8.3) g/dL Albumin 4.2 (3.0-4.8) g/dL Globulin 3.1 gm/dL Albumin/Globulin Ratio 1.4 (1.1-1.8) Procalcitonin (0.19-0.49) NG/ML Arterial Blood Potassium (3.6-5.2) mmol/L Venous Blood Potassium (3.6-5.2) mmol/L 06/12/18 06/12/18 Range/Units 03:00 00:10 WBC (4.5-11.0) 10^3/ul RBC (3.5-6.1) 10^6/uL Hgb (14.0-18.0) g/dL Hct (42.0-52.0) % MCV (80.0-105.0) fl MCH (25.0-35.0) pg MCHC (31.0-37.0) g/dl RDW (11.5-14.5) % Plt Count (120.0-450.0) 10^3/uL MPV (7.0-11.0) fl Gran % (50.0-68.0) % Lymph % (Auto) (22.0-35.0) % [place] % (Auto) (1.0-6.0) % Eos % (Auto) (1.5-5.0) % Baso % (Auto) (0.0-3.0) % Gran # (1.4-6.5) Lymph # (Auto) (1.2-3.4) [place] # (Auto) (0.1-0.6) Eos # (Auto) (0.0-0.7) Baso # (Auto) (0.0-2.0) K/mm3 APTT (25.1-36.5) Seconds D-Dimer, Quantitative (0-243) ng/mlDDU pCO2 (35-45) mm/Hg pO2 60 H (30-55) mm/Hg HCO3 (21-28) mmol/L ABG pH (7.35-7.45) ABG Total CO2 (22-28) mmol.L ABG O2 Saturation (95-98) % ABG O2 Content (15-23) ML/dl ABG Base Excess (-2.0-3.0) mmol/L ABG Hemoglobin (11.7-17.4) g/dL ABG Carboxyhemoglobin (0.5-1.5) % POC ABG HHb (Measured) (0-5) % ABG Methemoglobin (0.0-3.0) % ABG O2 Capacity (16-24) mL/dl ABG Potassium (3.6-5.2) mmol/L VBG pH 7.22 L (7.32-7.43) VBG pCO2 59.0 (40-60) VBG HCO3 24.1 (21-28) mmol/l VBG Total CO2 25.9 (22-28) mmol.L VBG O2 Sat (Calc) 91.6 H (40-65) % VBG Base Excess -4.5 L (0.0-2.0) mmol/L VBG Potassium 4.6 (3.6-5.2) mmol/L Hgb O2 Saturation (95.0-98.0) % Sodium 139.0 (132-148) mmol/L Chloride 105.0 (98-107) mmol/L Glucose 86 (75-110) mg/dl Lactate 1.2 (0.7-2.1) mmol/L FiO2 21.0 % Potassium (3.6-5.0) mmol/L Carbon Dioxide (21-33) mmol/L Anion Gap (10-20) BUN (7-21) mg/dL Creatinine (0.8-1.5) mg/dl Est GFR ( Amer) Est GFR (Non-Af Amer) Random Glucose (70-110) mg/dL Calcium (8.4-10.5) mg/dL Phosphorus (2.5-4.5) mg/dL Magnesium (1.7-2.2) mg/dL Total Bilirubin (0.2-1.3) mg/dL AST (17-59) U/L ALT (7-56) U/L Alkaline Phosphatase (38-126) U/L Total Creatine Kinase (35-230) U/L CK-MB (CK-2) (0.0-3.6) ng/mL CK-MB (CK-2) % (2.5-3.0) % Troponin I ng/mL Total Protein (5.8-8.3) g/dL Albumin (3.0-4.8) g/dL Globulin gm/dL Albumin/Globulin Ratio (1.1-1.8) Procalcitonin 15.04 H (0.19-0.49) NG/ML Arterial Blood Potassium (3.6-5.2) mmol/L Venous Blood Potassium 4.6 (3.6-5.2) mmol/L Laboratory Results - last 24 hr 06/12/18 06/12/18 06/12/18 00:10 03:00 03:00 WBC 22.6 H D RBC 4.87 Hgb 13.9 L Hct 40.9 L MCV 84.0 MCH 28.5 MCHC 34.0 RDW 14.7 H Plt Count 199 MPV 11.7 H Gran % 89.4 H Lymph % (Auto) 6.8 L [place] % (Auto) 3.8 Eos % (Auto) 0.0 L Baso % (Auto) 0.0 Gran # 20.15 H Lymph # (Auto) 1.5 [place] # (Auto) 0.9 H Eos # (Auto) 0.0 Baso # (Auto) 0.01 APTT D-Dimer, Quantitative pCO2 pO2 60 H HCO3 ABG pH ABG Total CO2 ABG O2 Saturation ABG O2 Content ABG Base Excess ABG Hemoglobin ABG Carboxyhemoglobin POC ABG HHb (Measured) ABG Methemoglobin ABG O2 Capacity ABG Potassium VBG pH 7.22 L VBG pCO2 59.0 VBG HCO3 24.1 VBG Total CO2 25.9 VBG O2 Sat (Calc) 91.6 H VBG Base Excess -4.5 L VBG Potassium 4.6 Hgb O2 Saturation Sodium 139.0 Chloride 105.0 Glucose 86 Lactate 1.2 FiO2 21.0 Potassium Carbon Dioxide Anion Gap BUN Creatinine Est GFR ( Amer) Est GFR (Non-Af Amer) Random Glucose Calcium Phosphorus Magnesium Total Bilirubin AST ALT Alkaline Phosphatase Total Creatine Kinase CK-MB (CK-2) CK-MB (CK-2) % Troponin I Total Protein Albumin Globulin Albumin/Globulin Ratio Procalcitonin 15.04 H Arterial Blood Potassium Venous Blood Potassium 4.6 06/12/18 06/12/18 06/12/18 03:00 03:00 07:53 WBC RBC Hgb Hct MCV MCH MCHC RDW Plt Count MPV Gran % Lymph % (Auto) [place] % (Auto) Eos % (Auto) Baso % (Auto) Gran # Lymph # (Auto) [place] # (Auto) Eos # (Auto) Baso # (Auto) APTT D-Dimer, Quantitative pCO2 57 H pO2 115.0 H HCO3 23.3 ABG pH 7.22 L ABG Total CO2 25.0 ABG O2 Saturation 98.9 H ABG O2 Content ABG Base Excess -5.2 L ABG Hemoglobin ABG Carboxyhemoglobin POC ABG HHb (Measured) ABG Methemoglobin ABG O2 Capacity ABG Potassium 4.0 VBG pH VBG pCO2 VBG HCO3 VBG Total CO2 VBG O2 Sat (Calc) VBG Base Excess VBG Potassium Hgb O2 Saturation Sodium 141 139.0 Chloride 109 H 109.0 H Glucose 98 Lactate 0.8 FiO2 32.0 Potassium 5.1 H Carbon Dioxide 26 Anion Gap 11 BUN 13 Creatinine 1.2 Est GFR ( Amer) > 60 Est GFR (Non-Af Amer) > 60 Random Glucose 100 Calcium 7.9 L Phosphorus 5.2 H Magnesium 1.9 Total Bilirubin 0.8 AST 94 H D ALT 42 Alkaline Phosphatase 65 Total Creatine Kinase 803 H CK-MB (CK-2) 18.5 H CK-MB (CK-2) % 2.3 L Troponin I 3.09 H* D Total Protein 7.3 Albumin 4.2 Globulin 3.1 Albumin/Globulin Ratio 1.4 Procalcitonin Arterial Blood Potassium 4.0 Venous Blood Potassium 06/12/18 06/12/18 06/12/18 10:00 10:50 11:00 WBC RBC Hgb Hct MCV MCH MCHC RDW Plt Count MPV Gran % Lymph % (Auto) [place] % (Auto) Eos % (Auto) Baso % (Auto) Gran # Lymph # (Auto) [place] # (Auto) Eos # (Auto) Baso # (Auto) APTT D-Dimer, Quantitative pCO2 58 H pO2 134.0 H HCO3 27.3 ABG pH 7.28 L ABG Total CO2 29.1 H ABG O2 Saturation 99.8 H ABG O2 Content 18.3 ABG Base Excess -0.6 ABG Hemoglobin 13.3 ABG Carboxyhemoglobin 2.1 H POC ABG HHb (Measured) 0.2 ABG Methemoglobin 1.1 ABG O2 Capacity 18.3 ABG Potassium VBG pH VBG pCO2 VBG HCO3 VBG Total CO2 VBG O2 Sat (Calc) VBG Base Excess VBG Potassium Hgb O2 Saturation 96.6 Sodium 142 Chloride 110 H Glucose Lactate FiO2 30.0 Potassium 4.3 Carbon Dioxide 24 Anion Gap 12 BUN 14 Creatinine 1.4 Est GFR ( Amer) > 60 Est GFR (Non-Af Amer) 60 Random Glucose 70 Calcium 8.8 Phosphorus Magnesium Total Bilirubin 0.8 AST 82 H ALT 41 Alkaline Phosphatase 62 Total Creatine Kinase 897 H CK-MB (CK-2) 16.7 H CK-MB (CK-2) % 1.9 L Troponin I 2.10 H* D Total Protein 7.0 Albumin 4.1 Globulin 3.0 Albumin/Globulin Ratio 1.4 Procalcitonin Arterial Blood Potassium Venous Blood Potassium 06/12/18 06/12/18 12:16 14:59 WBC RBC Hgb Hct MCV MCH MCHC RDW Plt Count MPV Gran % Lymph % (Auto) [place] % (Auto) Eos % (Auto) Baso % (Auto) Gran # Lymph # (Auto) [place] # (Auto) Eos # (Auto) Baso # (Auto) APTT 89.2 H D-Dimer, Quantitative 923 H pCO2 pO2 HCO3 ABG pH ABG Total CO2 ABG O2 Saturation ABG O2 Content ABG Base Excess ABG Hemoglobin ABG Carboxyhemoglobin POC ABG HHb (Measured) ABG Methemoglobin ABG O2 Capacity ABG Potassium VBG pH VBG pCO2 VBG HCO3 VBG Total CO2 VBG O2 Sat (Calc) VBG Base Excess VBG Potassium Hgb O2 Saturation Sodium Chloride Glucose Lactate FiO2 Potassium Carbon Dioxide Anion Gap BUN Creatinine Est GFR ( Amer) Est GFR (Non-Af Amer) Random Glucose Calcium Phosphorus Magnesium Total Bilirubin AST ALT Alkaline Phosphatase Total Creatine Kinase CK-MB (CK-2) CK-MB (CK-2) % Troponin I Total Protein Albumin Globulin Albumin/Globulin Ratio Procalcitonin Arterial Blood Potassium Venous Blood Potassium EKG/Cardiology Studies: Cardiology / EKG Studies 06/12/18 EKG [ELECTROCARDIOGRAM] Routine Comment: Reason For Exam: elevated trop 06/12/18 06:00 ELECTROCARDIOGRAM Routine Comment: Reason For Exam: Chest Pain Attending/Attestation - Attestation I have personally seen and examined this patient.: Yes I have fully participated in the care of the patient.: Yes I have reviewed all pertinent clinical information: Yes Notes (Text): 06/12/18 15:[address] jeter note
[2018-06-12] MEDS: Lactated Ringer's 1,000 ML IV SCH ×3 (08:49→23:00)
[2018-06-12] MEDS ORDERED: Thiamine 100 mg/ml Inj ONE (09:06)
--- NOTE | 2018-06-12 09:19 | CON ---
DATE: 06/12/2018 HISTORY OF PRESENT ILLNESS: This is a 28-year-old gentleman with history of PCP, alcohol and tobacco abuse who was found to be unresponsive in his own apartment by his GF. Therefore, no elaborate details of his HPI, ROS, PMH are available at present time. What is known is the patient was noted by the person who found him that he took 3 tabs of Percocet, unknown amount of alcohol and unknown amount of PCP. Initially in emergency room, the patient was found to have fever, leukocytosis and lactic acid 4.3 which was attributed to sepsis. The patient was started on antibiotics, septic workup initiated. Later on, he was found to have PCP in his U tox screen. The patient was transferred to ICU for further management and monitoring. No chills, no sweats. No nausea, no vomiting, no diarrhea, no constipation, no chest pain. PAST MEDICAL HISTORY: As above. PAST SURGICAL HISTORY: Denies. FAMILY HISTORY: Noncontributory. SOCIAL HISTORY: The patient is known to be active smoker, alcohol and PCP abuser, however, no quantitative history is available on all three. ALLERGIES: NKDA. HOME MEDICATIONS: None. REVIEW OF SYSTEMS: Review of systems other than mentioned in history of present illness is negative. PHYSICAL EXAMINATION: VITAL SIGNS: Blood pressure 139/79, heart rate 105, oxygen saturation 96% on room air. ENT: Head and neck atraumatic. LUNGS: Clear to auscultation bilaterally. HEART: Regular rate and rhythm, S1 and S2 normal. ABDOMEN: Soft, nontender, nondistended. MUSCULOSKELETAL: No C/C/E. NEUROLOGIC: The patient moves all extremities spontaneously. SKIN: Moist. PSYCHIATRIC: The patient is out of it, not communicative, easily arousable and appeared to be trying to figure out his environment. To some degree, he is able to follow commands but very lethargic. LABORATORY DATA: Sodium 141, potassium 5.1 (D50 and 10 units of insulin was given), chloride 109 (normal saline stopped, lactated Ringer started), carbon dioxide 26, BUN 13, creatinine 1.2 down from 1.9. Lactic acid initially 4.3, later on down to 1.2 and latest ABGs showed lactic acid to be 0.8. ABG; 7.22/57/115. Glucose 98. The patient was put on BiPAP 14/6 with FiO2 of 30% with backup rate 18. WBC 22.6 down from 37.7, hemoglobin 13.9, platelet count 199. CPK 588 (repeated is pending). Troponin 3.09 up from 0.73 (Dr. Chan is aware, V/Q scan is pending, echocardiogram was ordered, however, bedside [id number] ultrasound revealed no significant left ventricular systolic dysfunction with collapsible IVC). AST 94, ALT 42, total bilirubin 0.8. U tox screen positive for PCP, alcohol 23, salicylate less than 1 and Tylenol less than 10. CURRENT MEDICATIONS: Precedex, heparin drip, lactated Ringer, Ativan p.r.n., Protonix, vancomycin. CT of the chest, abdomen and pelvis, reading is pending. However, preliminary view of CT chest revealed some ground-glass opacities and nodules and intermingled with areas of consolidation in the right upper lobe and left lower lobe. Chest x-ray, no active pulmonary disease. ASSESSMENT AND PLAN: This is a 28-year-old gentleman who presented with PCP and alcohol intoxication complicated by likely aspiration pneumonia/pneumonitis with severe sepsis. The patient also developed acute kidney injury, encephalopathy, significant leukocytosis. At present time, we will continue with aggressive fluid resuscitation, monitoring his creatinine level, urine output and CPK. Troponin elevation may be related to hyperadrenergic state, thus supply-demand mismatch myocardia ischemia. Formal echocardiography can provide a little bit more details whether to consider primary coronary or secondary ischemic event, such as global vs regional wall movement abnormalities. Nevertheless, preliminary bedside ultrasound of the heart revealed no severe left ventricular systolic dysfunction and lack of IVC plethora. No good shots of RV were obtained. Once the patient is a little bit more cooperative, we will proceed with V/Q scan which would require considerable amount of time outside the Intensive Care Unit, which at present time appears to be a little bit risky. The patient, however is on therapeutic anticoagulation with heparin and Dr. Chan's full consult is pending. The patient does have acute respiratory acidosis with CO2 retention, most likely relating to his respiratory suppression by drug and alcohol intoxication. The patient appears to be tolerating BiPAP. We will use Precedex drip p.r.n if his agitation spikes. He received one dose of Ativan prior to day shift. Infectious Disease service will be following the patient as well. The patient received broad-spectrum antibiotics including acyclovir. The patient may potentially have community-acquired pneumonia. Procalcitonin, urine for Legionella and streptococcal antigen will be ordered. The patient was not vomiting, did not have any nausea, but possibility of aspiration pneumonia/pneumonitis can not be ruled out (GGOs). We will continue with head of bed elevated more than 35 degrees. We will repeat ABG later on to ascertain resolution of lactic acidosis. Low threshold for intubation if respiratory acidosis progresses. We will continue with deep venous thrombosis and gastrointestinal prophylaxes. We will maintain blood glucose within 140-180 range. His last potassium is 4, his lactic acid is 0.8. However, he started to develop hyperchloremia which I would like to avoid especially in patients with acute kidney injury. I will switch his IV fluids to lactated Ringer and avoid hyperchloremia and nephrotoxic medication. I will continue with euvolemia, euglycemia. ccm time 40 min Gilberto Fernandes MD MTDNirja
--- NOTE | 2018-06-12 10:00 | RAD ---
Date of service: 06/11/2018 HISTORY: 28yoM, overdose COMPARISON: No prior. FINDINGS: LUNGS: No active pulmonary disease. PLEURA: No significant pleural effusion identified, no pneumothorax apparent. CARDIOVASCULAR: Normal. OSSEOUS STRUCTURES: No significant abnormalities. VISUALIZED UPPER ABDOMEN: Normal. OTHER FINDINGS: None. IMPRESSION: No active disease.
[2018-06-12] MEDS: Vancomycin 750mg 750 MG/250 ML BAG IVPB SCH ×2 (10:18→22:30)
[2018-06-12 10:53] LABS: CK MB% 1.9 % (2.5-3.0); CK-MB 16.7 ng/mL (0.0-3.6); TROPONIN I 2.1 ng/mL
[2018-06-12 10:57] LABS: ARTERIAL BLOOD GAS HCO3 27.3 mmol/L (21-28); ARTERIAL BLOOD GAS HEMOGLOBIN 13.3 g/dL (11.7-17.4); ARTERIAL BLOOD GAS O2 CAPACITY 18.3 mL/dl (16-24); ARTERIAL BLOOD GAS O2 CONTENT 18.3 ML/dl (15-23); ARTERIAL BLOOD GAS O2 SAT 99.8 % (95-98); ARTERIAL BLOOD GAS PCO2 58 mm/Hg (35-45); ARTERIAL BLOOD GAS PH 7.28 (7.35-7.45); ARTERIAL BLOOD GAS TCO2 29.1 mmol.L (22-28)
[2018-06-12] MEDS ORDERED: Vancomycin 1gm in NS 250ml 1 GM/250 ML BAG IVPB SCH (11:00)
--- NOTE | 2018-06-12 11:29 | CP.PCM.PN ---
<Nicole Lim - Last Filed: 06/12/18 14:52> Subjective - Date & Time of Evaluation Date of Evaluation: 06/12/18 Time of Evaluation: 08:00 - Subjective Subjective: PGY-1 Nicole Lim D.O. Medicine progress note for Dr. Castle's service: Patient was seen and examined this morning. He is sedated on Precedex drip. He is sitting up and leaning towards his left side on a pillow. He is in 4 point restraints and on 1:1 observation. He does not appear in acute distress. He is on BiPap. ROS unable to be obtained 2/2 sedation. Objective - Vital Signs/Intake and Output Vital Signs (last 24 hours): Temp Pulse Resp BP Pulse Ox 98.3 F 91 H 20 120/66 100 06/12/18 06:20 06/12/18 11:00 06/12/18 11:00 06/12/18 11:00 06/12/18 11:00 Intake and Output: 06/12/18 06/12/18 06:59 18:59 Intake Total 500 Output Total 100 Balance 400 - Medications Medications: Current Medications Vancomycin HCl (Vancomycin 750 Mg In Ns) 750 mg in 250 mls @ 167 mls/hr IVPB Q12 HECTOR PRN Reason: Protocol Last Admin: 06/12/18 10:18 Dose: 167 mls/hr Folic Acid 1 mg/ Thiamine HCl 100 mg/ Multivitamins/Vitamin C 10 ml/ Dextrose 1 ,011.2 mls @ 100 mls/hr IV .Q10H7M HECTOR Last Admin: 06/12/18 05:10 Dose: 100 mls/hr Heparin Sodium/Sodium Chloride (Heparin 11399 Units/250ml 1/2 Normal Saline) 25 ,000 units in 250 mls @ 8.709 mls/hr IV .Q24H HECTOR; 12 UNITS/KG/HR PRN Reason: Protocol Last Admin: 06/12/18 06:21 Dose: 12 units/kg/hr, 8.709 mls/hr Dexmedetomidine HCl (Precedex 400mcg/100ml) 400 mcg in 100 mls @ 3.629 mls/hr IV .Q24H PRN; Protocol; 0.2 MCG/KG/HR PRN Reason: Agitation Last Admin: 09/16/18 08:51 Dose: 0.2 mcg/kg/hr, 3.629 mls/hr Lactated Ringer's (Lactated Ringer's) 1,000 mls @ 150 mls/hr IV .Q6H40M [facility] Last Admin: 06/12/18 08:49 Dose: 150 mls/hr Lorazepam (Ativan) 1 mg IVP Q6H PRN; Protocol PRN Reason: Symptoms of alcohol withdrawl Last Admin: 06/12/18 04:58 Dose: 1 mg Pantoprazole Sodium (Protonix Inj) 40 mg IVP DAILY [facility] Last Admin: 06/12/18 09:05 Dose: 40 mg - Labs Labs: 06/12/18 03:00 06/12/18 03:00 PT 12.2 SECONDS (9.4-12.5) 06/11/18 19:13 INR 1.07 06/11/18 19:13 APTT 31.0 Seconds (25.1-36.5) 06/11/18 19:13 - Constitutional Appears: No Acute Distress, Other (sedated) - Head Exam Head Exam: ATRAUMATIC, NORMAL INSPECTION - Eye Exam Eye Exam: PERRL - ENT Exam ENT Exam: Mucous Membranes Moist - Neck Exam Neck Exam: Normal Inspection - Respiratory Exam Additional comments: on BiPap - Cardiovascular Exam Cardiovascular Exam: Tachycardia, REGULAR RHYTHM, +S1, +S2 - GI/Abdominal Exam GI & Abdominal Exam: Soft, Normal Bowel Sounds - Rectal Exam Rectal Exam: Deferred - Extremities Exam Extremities Exam: Normal Inspection - Back Exam Back Exam: NORMAL INSPECTION - Neurological Exam Neurological Exam: absent: Alert, Awake - Skin Skin Exam: Dry, Intact, Normal Color, Warm Assessment and Plan - Assessment and Plan (Free Text) Assessment: 28 year old AA male with a history significant for PCP, tobacco, and alcohol abuse who presented after he was found unresponsive in his home by his significant other. Upon arrival to the ED, patient was neither alert nor oriented so HPI information was obtained from chart review and patient's significant other. Patient was found to be in sepsis with a leukocytosis of 37.7 , tachycardia to 118 beats/min, and a lactic acidosis of 4.3. He was given one dose of IV Acyclovir, IV Vancomycin, and IV Zosyn. He was also found to have an elevated troponin of 0.73 that then increased to 3.09. Patient was sent for V/Q scan but could not complete this as he was unable to remain without motion during the study. Patient was placed on Precedex for agitation and BiPap for respiratory acidosis. Plan: Sepsis- possibly aspiration PNA - Leukocytosis 37.7->22.6 - Afebrile - Lactate 4.7->0.8 - Procal 15.04- trend - CXR: no active disease - CT head: no acute findings - CT chest/abd/pelvis: There is a hazy interstitial infiltrate in the right upper lobe and superior segment of the left lower lobe. Possible pneumonia. - Vancomycin 750 mg IV q12hrs (renal dose- GFR 54)- f/u ID to increase now that RESHMA resolved - Zosyn 3.375 mg IV [id number] - LR @ 100 - Blood, Urine, Sputum, and MRSA cultures pending - UA: negative - F/u Legionella - F/u Mycoplasma - F/u HIV - F/u Hepatitis panel - ID consulted (Koby) Respiratory acidosis - ABG, FiO2 32: pH 7.22, pO2 115, pCO2 57 - Anion gap 23 - BiPap Polysubstance Abuse/Overdose - UDS positive for PCP - Salicylates <1, Acetaminophen <10 - BAL 23 - CIWA Q4 - Ativan 1mg Q6 IVP PRN - Precedex drip for agitation - Aspiration, Fall, and Seizure precautions - Poison Control called Elevated Troponin- r/o NSTEMI, PE - Initial troponin positive at 0.73->3.09->2.10 (trend q6hrs) - EKG: sinus tachycardia - Bedside echo did not show right ventricular strain - CTA pending- patient currently too unstable - Heparin drip - Trend - Echo pending - Cardiology consulted (Dustin) Elevated CPK, worsening - 588->803->897 - LR @ 150 - Trend Elevated AST- 2/2 alcohol use - Monitor daily CMP RESHMA, resolved - Creatinine 1.9 (no baseline for comparison)->1.2 - Continue to monitor with daily CMP - Nephrology consulted (Alexia) IVF: LR @ 150 Diet: NPO GI ppx: Protonix 40 mg IV daily DVT ppx: SCDs Code status: full code Case discussed wtih attending, Dr. Castle <Pallavi Castle R - Last Filed: 06/13/18 12:15> Objective - Vital Signs/Intake and Output Vital Signs (last 24 hours): Temp Pulse Resp BP Pulse Ox 97.4 F L 72 21 133/75 100 06/13/18 08:00 06/13/18 08:10 06/13/18 08:10 06/13/18 08:00 06/13/18 08:10 Intake and Output: 06/13/18 06/13/18 06:59 18:59 Intake Total 2741 4 Output Total 1200 Balance 1541 4 - Medications Medications: Current Medications Vancomycin HCl (Vancomycin 750 Mg In Ns) 750 mg in 250 mls @ 167 mls/hr IVPB Q12 HECTOR PRN Reason: Protocol Last Admin: 06/13/18 09:42 Dose: 167 mls/hr Heparin Sodium/Sodium Chloride (Heparin 34170 Units/250ml 1/2 Normal Saline) 25 ,000 units in 250 mls @ 8.709 mls/hr IV .Q24H HECTOR; 12 UNITS/KG/HR PRN Reason: Protocol Last Admin: 06/13/18 05:45 Dose: 10 units/kg/hr, 7.258 mls/hr Dexmedetomidine HCl (Precedex 400mcg/100ml) 400 mcg in 100 mls @ 3.629 mls/hr IV .Q24H PRN; Protocol; 0.2 MCG/KG/HR PRN Reason: Agitation Last Titration: 06/13/18 07:00 Dose: 0.1 mcg/kg/hr, 1.814 mls/hr Lactated Ringer's (Lactated Ringer's) 1,000 mls @ 150 mls/hr IV .Q6H40M [facility]ECTOR Last Admin: 06/13/18 05:00 Dose: 150 mls/hr Piperacillin Sod/Tazobactam Sod (Zosyn 3.375 In Ns 100ml) 100 mls @ 200 mls/hr IVPB Q6 HECTRO PRN Reason: Protocol Stop: 06/20/18 18:01 Last Admin: 06/13/18 05:29 Dose: 200 mls/hr Dextrose (Dextrose 5% In Water 1000 Ml) 1,000 mls @ 75 mls/hr IV .[id number] HECTOR Last Admin: 06/13/18 08:15 Dose: 75 mls/hr Lorazepam (Ativan) 1 mg IVP Q6H PRN; Protocol PRN Reason: Symptoms of alcohol withdrawl Last Admin: 06/13/18 09:43 Dose: 1 mg Pantoprazole Sodium (Protonix Inj) 40 mg IVP DAILY [facility] Last Admin: 06/13/18 09:42 Dose: 40 mg - Labs Labs: 06/13/18 05:30 06/13/18 05:30 PT 12.2 SECONDS (9.4-12.5) 06/11/18 19:13 INR 1.07 06/11/18 19:13 APTT 54.4 Seconds (25.1-36.5) H 06/13/18 08:30 Attending/Attestation - Attestation I have personally seen and examined this patient.: Yes I have fully participated in the care of the patient.: Yes I have reviewed all pertinent clinical information, including history, physical exam and plan: Yes Notes (Text): Patient seen and examined by me at 10:30AM with resident 06/12/18. Case including HPI, physical exam, and assessment and plan discussed with resident. Agree with above with following additions/corrections. Patient is a 28 year old male with past medical history significant for PCP, tobacco abuse, and alcohol abuse that presented to the emergency room after being found unresponsive in home by his significant other. Patient is lethargic. Patient is on Precedex. Unable to obtain any review of systems from patient. Patient is not following commands. Afebrile. Patient is on 1:1 and in bilateral wrist restraints for safety. Physical exam: General: Lethargic sitting up in bed in no acute distress HEENT: Normocephalic atraumatic. Pupils equal reactive. No scleral icterus. Neck is supple. Cardiovascular: Normal rhythm. Normal S1, S2. No murmurs, rubs, or gallops appreciated Pulmonary: Decreased breath sounds. Patient sedated and not following commands. On BiPAP. Patient not taking in deep breaths when asked to. No rhonchi, rales or wheezing appreciated. Gastrointestinal: Soft, nondistended. Nontender. Positive bowel sounds all 4 quadrants, no guarding. Musculoskeletal: No edema appreciated. Central nervous system: Sedated. Not following commands. Unable to perform full neuro exam. Dermatologic: Skin warm and dry, multiple tattoos. Assessment and plan: Patient is a 28 year old male with past medical history significant for PCP, tobacco abuse, and alcohol abuse that presented to the emergency room after being found unresponsive in home by his significant other. 1. Sepsis. Possible aspiration pneumonia. Leukocytosis. Chest xray with no active disease. CT head per radiologist shows negative study. Blood and urine culture pending. Patient afebrile. Urinalysis negative for infection. Continue Vancomycin and Zosyn. ID consulted, follow up recommendations. Follow up CTA chest. Elevated procalcitonin. Continue IV fluids. Lactic acidosis resolved. Follow up urine for legionella. Follow up mycoplasma. F/U HIV. Continue BIPAP as needed. Continue to monitor in the ICU. 2. Leukocytosis. Secondary to #1. Downtrending. Continue Zosyn and vancomycin. 3. Polysubstance abuse. Overdose. ETOH intoxication. UDS positive for PCP. Continue Ativan prn. Continue CIWA protocol. Poison control was called by emergency room. Continue aspiration precautions. Continue 1:1. 4. Elevated troponin. Uptrending. Possible demand ischemia. Rule out ACS. Cardiology consulted, follow up recommendations. CTA chest pending to rule out PE. Echo pending. Continue with heparin drip. 5. Elevated CPK. Continue IV fluids. Continue to monitor. 6. Elevated LFTs. Likely secondary to ETOH abuse and drug abuse. 7. RESHMA. Resolved. Continue IV fluids. Nephrology consulted, follow up recommendations. Continue to monitor. 8. DVT prophylaxis. Heparin drip
[2018-06-12 11:48] LABS: ALB/GLOB RATIO 1.4 (1.1-1.8); ALBUMIN 4.1 g/dL (3.0-4.8); ALT/SGPT 41 U/L (7-56); AST/SGOT 82 U/L (17-59); BLOOD UREA NITROGEN 14 mg/dL (7-21); CALCIUM 8.8 mg/dL (8.4-10.5); GFR NON-AFRICAN AMERICAN 60
--- NOTE | 2018-06-12 11:53 | CP.PCM.CON ---
History of Present Illness - History of Present Illness History of Present Illness: RENAL Consult for RESHMA 28 yo M w/ hx of drug abuse that was found on responsive at home by girlfriend. He has a reported hx of PCP and tobacco and etoh abuse as per primary team. He is unable to give any history as he is lethargic and hx is from primary team and chart. Girlfriend reported that he had taken percocet and unkonwn amoutn of alcohol and PCP. Cr was elevated and admitted for further evaluation. He is now on bipap for hypercapnea. ROS a full detailed ros is unable to be obtain due to lethargy PMH: drug abuse PSH: non documented Family History: Unknown Social History: + etoh, smoke and drugs all: nkda pe: vs as below gen: nad on bipap lethargic sclera: anicteric op: clear on bipap neck supple no thyromegaly cv: +s1+s2 no rub lungs: cta abd: soft nt/nd no organomegaly ext: no edema neuro: lethargic unable to assess psych: lethargic unable to assess skin: no rash labs and imaging reviewed imp: ARF/ hyperkalemia/altered mental status/ drug abuse //hypercpaneic respiratory failure/rhabdomylosis plan: RESHMA improving continue ivf. K is high today, recheck now - if still high switch from LR to 0.9% NS bipap per primary team monitor uop and I/o continue trend daily cpk check mag and phos w/ am labs again discused w/ ICU resident Past Patient History - Infectious Disease Hx of Infectious Diseases: None - Past Social History Smoking Status: Current Some Days Smoker - CARDIAC Hx Cardiac Disorders: No - PULMONARY Hx Respiratory Disorders: No - NEUROLOGICAL Hx Neurological Disorder: No - HEENT Hx HEENT Problems: No - RENAL Hx Chronic Kidney Disease: No - ENDOCRINE/METABOLIC Hx Endocrine Disorders: No - HEMATOLOGICAL/ONCOLOGICAL Hx Blood Disorders: No - INTEGUMENTARY Hx Dermatological Problems: No - MUSCULOSKELETAL/RHEUMATOLOGICAL Hx Musculoskeletal Disorders: No Hx Falls: No (unable to obtain) - GASTROINTESTINAL Hx Gastrointestinal Disorders: No - GENITOURINARY/GYNECOLOGICAL Hx Genitourinary Disorders: No - PSYCHIATRIC Hx Psychophysiologic Disorder: No Hx Substance Use: Yes - SURGICAL HISTORY Hx Surgeries: No - ANESTHESIA Hx Anesthesia: No Meds Allergies/Adverse Reactions: Allergies Allergy/AdvReac Type Severity Reaction Status Date / Time No Known Allergies Allergy Unverified 06/11/18 19:10 - Medications Medications: Current Medications Vancomycin HCl (Vancomycin 750 Mg In Ns) 750 mg in 250 mls @ 167 mls/hr IVPB Q12 HECTOR PRN Reason: Protocol Last Admin: 06/12/18 10:18 Dose: 167 mls/hr Folic Acid 1 mg/ Thiamine HCl 100 mg/ Multivitamins/Vitamin C 10 ml/ Dextrose 1 ,011.2 mls @ 100 mls/hr IV .Q10H7M [facility] Last Admin: 06/12/18 05:10 Dose: 100 mls/hr Heparin Sodium/Sodium Chloride (Heparin 78833 Units/250ml 1/2 Normal Saline) 25 ,000 units in 250 mls @ 8.709 mls/hr IV .Q24H HECTOR; 12 UNITS/KG/HR PRN Reason: Protocol Last Admin: 06/12/18 06:21 Dose: 12 units/kg/hr, 8.709 mls/hr Dexmedetomidine HCl (Precedex 400mcg/100ml) 400 mcg in 100 mls @ 3.629 mls/hr IV .Q24H PRN; Protocol; 0.2 MCG/KG/HR PRN Reason: Agitation Last Admin: 06/12/18 08:51 Dose: 0.2 mcg/kg/hr, 3.629 mls/hr Lactated Ringer's (Lactated Ringer's) 1,000 mls @ 150 mls/hr IV .Q6H40M [facility] Last Admin: 06/12/18 08:49 Dose: 150 mls/hr Lorazepam (Ativan) 1 mg IVP Q6H PRN; Protocol PRN Reason: Symptoms of alcohol withdrawl Last Admin: 06/12/18 04:58 Dose: 1 mg Pantoprazole Sodium (Protonix Inj) 40 mg IVP DAILY [facility] Last Admin: 06/12/18 09:05 Dose: 40 mg Results - Vital Signs Recent Vital Signs: Last Vital Signs Temp 98.3 F 06/12/18 06:20 Pulse 91 H 06/12/18 11:00 Resp 20 06/12/18 11:00 BP 120/66 06/12/18 11:00 Pulse Ox 100 06/12/18 11:00 - Labs Result Diagrams: 06/12/18 03:00 06/12/18 03:00 Labs: Laboratory Results - last 24 hr 06/12/18 06/12/18 06/12/18 00:10 03:00 03:00 WBC 22.6 H D RBC 4.87 Hgb 13.9 L Hct 40.9 L MCV 84.0 MCH 28.5 MCHC 34.0 RDW 14.7 H Plt Count 199 MPV 11.7 H Gran % 89.4 H Lymph % (Auto) 6.8 L Thomas % (Auto) 3.8 Eos % (Auto) 0.0 L Baso % (Auto) 0.0 Gran # 20.15 H Lymph # (Auto) 1.5 Thomas # (Auto) 0.9 H Eos # (Auto) 0.0 Baso # (Auto) 0.01 pCO2 pO2 60 H HCO3 ABG pH ABG Total CO2 ABG O2 Saturation ABG O2 Content ABG Base Excess ABG Hemoglobin ABG Carboxyhemoglobin POC ABG HHb (Measured) ABG Methemoglobin ABG O2 Capacity ABG Potassium VBG pH 7.22 L VBG pCO2 59.0 VBG HCO3 24.1 VBG Total CO2 25.9 VBG O2 Sat (Calc) 91.6 H VBG Base Excess -4.5 L VBG Potassium 4.6 Hgb O2 Saturation Sodium 139.0 141 Chloride 105.0 109 H Glucose 86 Lactate 1.2 FiO2 21.0 Potassium 5.1 H Carbon Dioxide 26 Anion Gap 11 BUN 13 Creatinine 1.2 Est GFR ( Amer) > 60 Est GFR (Non-Af Amer) > 60 Random Glucose 100 Calcium 7.9 L Phosphorus 5.2 H Magnesium 1.9 Total Bilirubin 0.8 AST 94 H D ALT 42 Alkaline Phosphatase 65 Total Creatine Kinase CK-MB (CK-2) CK-MB (CK-2) % Troponin I 3.09 H* D Total Protein 7.3 Albumin 4.2 Globulin 3.1 Albumin/Globulin Ratio 1.4 Arterial Blood Potassium Venous Blood Potassium 4.6 06/12/18 06/12/18 06/12/18 03:00 07:53 10:00 WBC RBC Hgb Hct MCV MCH MCHC RDW Plt Count MPV Gran % Lymph % (Auto) Thomas % (Auto) Eos % (Auto) Baso % (Auto) Gran # Lymph # (Auto) Thomas # (Auto) Eos # (Auto) Baso # (Auto) pCO2 57 H pO2 115.0 H HCO3 23.3 ABG pH 7.22 L ABG Total CO2 25.0 ABG O2 Saturation 98.9 H ABG O2 Content ABG Base Excess -5.2 L ABG Hemoglobin ABG Carboxyhemoglobin POC ABG HHb (Measured) ABG Methemoglobin ABG O2 Capacity ABG Potassium 4.0 VBG pH VBG pCO2 VBG HCO3 VBG Total CO2 VBG O2 Sat (Calc) VBG Base Excess VBG Potassium Hgb O2 Saturation Sodium 139.0 Chloride 109.0 H Glucose 98 Lactate 0.8 FiO2 32.0 Potassium Carbon Dioxide Anion Gap BUN Creatinine Est GFR ( Amer) Est GFR (Non-Af Amer) Random Glucose Calcium Phosphorus Magnesium Total Bilirubin AST ALT Alkaline Phosphatase Total Creatine Kinase 803 H 897 H CK-MB (CK-2) 18.5 H 16.7 H CK-MB (CK-2) % 2.3 L 1.9 L Troponin I 2.10 H* D Total Protein Albumin Globulin Albumin/Globulin Ratio Arterial Blood Potassium 4.0 Venous Blood Potassium 06/12/18 10:50 WBC RBC Hgb Hct MCV MCH MCHC RDW Plt Count MPV Gran % Lymph % (Auto) Thomas % (Auto) Eos % (Auto) Baso % (Auto) Gran # Lymph # (Auto) Thomas # (Auto) Eos # (Auto) Baso # (Auto) pCO2 58 H pO2 134.0 H HCO3 27.3 ABG pH 7.28 L ABG Total CO2 29.1 H ABG O2 Saturation 99.8 H ABG O2 Content 18.3 ABG Base Excess -0.6 ABG Hemoglobin 13.3 ABG Carboxyhemoglobin 2.1 H POC ABG HHb (Measured) 0.2 ABG Methemoglobin 1.1 ABG O2 Capacity 18.3 ABG Potassium VBG pH VBG pCO2 VBG HCO3 VBG Total CO2 VBG O2 Sat (Calc) VBG Base Excess VBG Potassium Hgb O2 Saturation 96.6 Sodium Chloride Glucose Lactate FiO2 30.0 Potassium Carbon Dioxide Anion Gap BUN Creatinine Est GFR ( Amer) Est GFR (Non-Af Amer) Random Glucose Calcium Phosphorus Magnesium Total Bilirubin AST ALT Alkaline Phosphatase Total Creatine Kinase CK-MB (CK-2) CK-MB (CK-2) % Troponin I Total Protein Albumin Globulin Albumin/Globulin Ratio Arterial Blood Potassium Venous Blood Potassium
--- NOTE | 2018-06-12 12:03 | CT ---
Date of service: 06/11/2018 PROCEDURE: CT HEAD WITHOUT CONTRAST. HISTORY: 28yoM, confusion COMPARISON: None available. TECHNIQUE: Axial computed tomography images were obtained through the head/brain without intravenous contrast. Radiation dose: Total exam DLP = 956 mGy-cm. This CT exam was performed using one or more of the following dose reduction techniques: Automated exposure control, adjustment of the mA and/or kV according to patient size, and/or use of iterative reconstruction technique. FINDINGS: HEMORRHAGE: No intracranial hemorrhage. BRAIN: No mass effect or edema. No atrophy or chronic microvascular ischemic changes. VENTRICLES: Unremarkable. No hydrocephalus. CALVARIUM: Unremarkable. PARANASAL SINUSES: Unremarkable as visualized. No significant inflammatory changes. MASTOID AIR CELLS: Unremarkable as visualized. No inflammatory changes. OTHER FINDINGS: The report concurs with the preliminary [facility] report IMPRESSION: Negative study
--- NOTE | 2018-06-12 12:06 | CARD ---
APPROVED REPORT Date of service: 06/12/2018 EKG Measurement Heart [id number] <Conclusion> Normal sinus rhythm Normal ECG
--- NOTE | 2018-06-12 12:08 | CT ---
Date of service: 06/11/2018 PROCEDURE: CT Chest, Abdomen and Pelvis without intravenous contrast HISTORY: 28yoM, confusion, leukocytosis 37. please eval COMPARISON: None available. TECHNIQUE: Radiation dose: Total exam DLP = 1142 mGy-cm. This CT exam was performed using one or more of the following dose reduction techniques: Automated exposure control, adjustment of the mA and/or kV according to patient size, and/or use of iterative reconstruction technique. FINDINGS: CT CHEST WITHOUT CONTRAST: LUNGS: There is a hazy interstitial infiltrate in the right upper lobe and superior segment of the left lower lobe. Possible pneumonia MEDIASTINUM: Unremarkable. Normal caliber aorta and pulmonary arterial trunk. Normal size heart. LYMPH NODES: Unremarkable. PLEURA: Unremarkable. No pneumothorax. No pleural fluid. BONES: Unremarkable. OTHER FINDINGS: None. CT ABDOMEN AND PELVIS: LIVER: Unremarkable. No gross lesion or ductal dilatation. GALLBLADDER AND BILE DUCTS: Unremarkable. PANCREAS: Unremarkable. No gross lesion or ductal dilatation. SPLEEN: Unremarkable. ADRENALS: Unremarkable. No mass. KIDNEYS AND URETERS: Unremarkable. No hydronephrosis. No solid mass. VASCULATURE: Unremarkable. No aortic aneurysm. BOWEL: Unremarkable. No obstruction. No gross mural thickening. APPENDIX: Normal appendix. PERITONEUM: Unremarkable. No free fluid. No free air. LYMPH NODES: Unremarkable. No enlarged lymph nodes. BLADDER: Unremarkable. REPRODUCTIVE: Unremarkable. BONES: No acute fracture. OTHER FINDINGS: The report concurs with the preliminary [facility] report IMPRESSION: There is a hazy interstitial infiltrate in the right upper lobe and superior segment of the left lower lobe. Possible pneumonia
--- NOTE | 2018-06-12 12:12 | CARD ---
APPROVED REPORT Date of service: 06/11/2018 EKG Measurement Heart [id number] MT [id number] <Conclusion> Sinus tachycardia Right atrial enlargement Borderline ECG
[2018-06-12] MEDS ORDERED: Iodixanol 320 MG/ML 100 ML BOTTLE IV ONE (14:58)
[2018-06-12 15:56] LABS: ARTERIAL BLOOD GAS HCO3 21.1 mmol/L (21-28); ARTERIAL BLOOD GAS HEMOGLOBIN 11.6 g/dL (11.7-17.4); ARTERIAL BLOOD GAS O2 CAPACITY 16.2 mL/dl (16-24); ARTERIAL BLOOD GAS O2 CONTENT 16.1 ML/dl (15-23); ARTERIAL BLOOD GAS O2 SAT 99.4 % (95-98); ARTERIAL BLOOD GAS PCO2 46 mm/Hg (35-45); ARTERIAL BLOOD GAS PH 7.27 (7.35-7.45); ARTERIAL BLOOD GAS TCO2 22.5 mmol.L (22-28)
--- NOTE | 2018-06-12 16:04 | CON ---
DATE: 06/12/2018 LOCATION: The patient is seen early this morning in 129, bed 6. CHIEF COMPLAINT: Antibiotic administration. HISTORY OF PRESENT ILLNESS: This is a 28-year-old male with found unresponsive at home by the girlfriend. The patient had been fine at that point. He has history of drug abuse and tobacco abuse and alcohol abuse. This morning, the patient was unable to give any information. He is lethargic. He had been taking Percocet and alcohol and PCP and placed on BiPAP, admitted to the ICU. Infectious Disease consultation requested for decisions for antibiotic choice. Emergency room charts reveal the patient was treated in the ER, overdose. No nausea, vomiting, headaches. No problems prior to this episode. The patient had been fine. This is an acute onset after he took the drugs. PAST MEDICAL HISTORY: Significant for substance abuse, alcohol abuse, tobacco use. No other medical history. PAST SURGICAL HISTORY: Noncontributory. ALLERGIES: THE PATIENT HAS NO KNOWN ALLERGIES. MEDICATIONS: He takes no medications at home. His notes then stated that he uses intravenous drugs. PHYSICAL EXAMINATION: GENERAL: On exam, he is in bed, lethargic. VITAL SIGNS: Temperature is 98; blood pressure is 120/60; respiratory rate of 18; heart rate of 93, it was up to 118; respiratory rate is 20. He has been afebrile. HEENT: Examination of HEENT is unremarkable. NECK: Supple. LUNGS: Have decreased breath sounds. HEART: Normal S1, S2. ABDOMEN: Soft, nontender. LABORATORY DATA: Laboratory examination reveals a white count of 37,000, hemoglobin of 15, platelets of 197. Coagulation is noted. Chemistries reveals a BUN of 14, creatinine of 1.9. Troponin is elevated at 0.73 and 3.09. The LFTs are mildly elevated. Lactic acid is 4.3. Urinalysis is unremarkable. The patient did have an alcohol level of 23. Positive phencyclidines in his toxicology report. CAT scan of the chest and abdomen and pelvis and a CAT scan of the head are done. There is right and left lower lobe pneumonia. CAT scan of the head is negative. Microbiology is pending; blood, urine MRSA screen; sputum cultures. The patient empirically was given vancomycin and Zosyn. ASSESSMENT AND PLAN: A 28-year-old male with #1 is severe sepsis with drug overdose and aspiration pneumonia and acute kidney injury, which appears to be improving, on vancomycin and Zosyn. Pending blood, urine, sputum culture. We will order a procalcitonin and pancultures, methicillin-resistant Staphylococcus aureus screen. We will make further recommendation. Hepatitis profile. We will follow with you. Arun Kapadia MD
[2018-06-12 17:25] LABS: BASO # 0.01 K/mm3 (0.0-2.0); BASO % 0.1 % (0.0-3.0); EOS % 0.1 % (1.5-5.0); GRAN # 10.61 (1.4-6.5); GRAN % 77.4 % (50.0-68.0); HEMOGLOBIN 12.9 g/dL (14.0-18.0); LYMPH # 1.8 (1.2-3.4); LYMPH % 12.8 % (22.0-35.0); MEAN CELL VOLUME 85.5 fl (80.0-105.0); MEAN CORPUSCULAR HEMOGLOBIN 28.4 pg (25.0-35.0); MEAN CORPUSCULAR HGB CONC 33.2 g/dl (31.0-37.0); MEAN PLATELET VOLUME 11.1 fl (7.0-11.0); MONO # 1.3 (0.1-0.6); MONO % 9.6 % (1.0-6.0); RBC 4.55 10^6/uL (3.5-6.1); WHITE BLOOD COUNT 13.7 10^3/ul (4.5-11.0)
[2018-06-12] MEDS: Piperacillin/Tazobact 3.375 gm 100 ML IVPB SCH (17:33)
[2018-06-12 17:55] LABS: ALB/GLOB RATIO 1.3 (1.1-1.8); ALBUMIN 3.8 g/dL (3.0-4.8); ALT/SGPT 41 U/L (7-56); AST/SGOT 83 U/L (17-59); BLOOD UREA NITROGEN 13 mg/dL (7-21); CALCIUM 8.5 mg/dL (8.4-10.5); GFR NON-AFRICAN AMERICAN > 60; TROPONIN I 1.18 ng/mL
[2018-06-12 17:59] LABS: CK MB% 1.3 % (2.5-3.0); CK-MB 15.5 ng/mL (0.0-3.6)
[2018-06-12] MEDS ORDERED: Multivitamin (MVI) 10 ML, Thiamine 100 MG, Folic Acid 1 MG in Dextrose 5% In Water 1,00... IV ONE (17:59)
--- NOTE | 2018-06-12 20:32 | PN ---
DATE: 06/12/[address] Everton Chan. SUBJECTIVE: The patient is currently on 2-point set of restraint and he is kept n.p.o. No reported ventricular tachycardia. PHYSICAL EXAMINATION: VITAL SIGNS: Blood pressure 116/53, heart rate 89, respirations 20, temperature 97.8. HEENT: Normocephalic. CHEST: Diminished breath sounds bilaterally. HEART: S1 and S2 regular. EXTREMITIES: No edema. LABORATORY DATA: EKG revealed sinus tachycardia at a rate of 116. Chest, abdomen, and pelvic CT scan without contrast: Hazy interstitial infiltrate in right upper lobe and superior segment of the left lower lobe, possible pneumonia. Head CT scan without contrast, negative study. Urine drug screen is positive for PCP, alcohol level was 23. ASSESSMENT: 1. Status post PCP abuse and ethanol abuse. 2. Consider [id number] myocardial infarction. 3. Rule out pulmonary infarction. 4. Pneumonia. RECOMMENDATIONS: Continue current IV vancomycin and IV Zosyn. Continue intravenous heparin in therapeutic regimen. Obtain serum D-dimer and a bedside echocardiographic study. Jareth Miller MD
--- NOTE | 2018-06-12 21:15 | PN ---
DATE: 06/12/2018 SUBJECTIVE: The patient was found to have hypoglycemia, D50 was given x2. His blood gas showed improvement in pCO2 (46 down from 58). However, the patient remained 7.27 on BiPAP 14/03. His bicarb is 27 on latest chemistry panel (from 05:19 p.m.). That was discussed with Dr. Hale, Nephrology on case. It was decided to proceed with watchful observation with correcting hypoglycemia. Continuing lactated Ringer as the patient potassium is within normal limits and chloride rising. We will add D5 at 75 mL/hour on top of lactated Ringer's IV solution. Discussed with Dr. Hale whether or not renal replacement therapy is indicated at the present time to correct acidosis; however, decision was made not to proceed with CREATIVE COORDINATOR at present time. The patient is slightly agitated, thus we will continue with Precedex low-dose. Of note, the patient does not have any muscle rigidity, any tremor in any of his extremities. We will continue with aggressive fluid resuscitation, urine output monitoring and CPK, chemistry and electrolytes monitoring. Gilberto Fernandes MD
[2018-06-13] MEDS: Piperacillin/Tazobact 3.375 gm 100 ML IVPB SCH ×4 (01:00→18:33)
[2018-06-13] MEDS: Lactated Ringer's 1,000 ML IV SCH ×2 (05:00→22:22)
--- NOTE | 2018-06-13 05:37 | CP.PCM.PN ---
<Nicole Lim - Last Filed: 06/13/18 19:54> Subjective - Date & Time of Evaluation Date of Evaluation: 06/13/18 Time of Evaluation: 07:15 - Subjective Subjective: PGY-1 Nicole Lim D.O. Medicine progress note for Dr. Miller's service: Patient was seen and examined this morning. He is off of sedation. He is alert and oriented x3. He does not remember coming to the hospital. He admits to drinking beers and taking PCP about 1 week ago. He denies pain, SOB, fevers, and chills. Patient is re-examined later in the day. A code nunes was called because patient threatened to hurt PCP and nurse. He is requesting to go home. He states "I feel fine and I got a lot of things to do. The hospital is just making money off keeping me here." Medical diagnoses and patient condition are explained to the patient. He states he understands but still wants to go home. Patient's father was contacted and patient agreed to stay at least until father arrived. Objective - Vital Signs/Intake and Output Vital Signs (last 24 hours): Temp Pulse Resp BP Pulse Ox 99.3 F 75 23 136/78 100 06/12/18 20:00 06/13/18 05:03 06/13/18 05:03 06/13/18 05:00 06/13/18 03:50 Intake and Output: 06/12/18 06/13/18 18:59 06:59 Intake Total 2026 142 Output Total 2200 Balance -174 142 - Medications Medications: Current Medications Vancomycin HCl (Vancomycin 750 Mg In Ns) 750 mg in 250 mls @ 167 mls/hr IVPB Q12 HECTOR PRN Reason: Protocol Last Admin: 06/12/18 22:30 Dose: 167 mls/hr Heparin Sodium/Sodium Chloride (Heparin 88177 Units/250ml 1/2 Normal Saline) 25 ,000 units in 250 mls @ 8.709 mls/hr IV .Q24H [facility]; 12 UNITS/KG/HR PRN Reason: Protocol Last Titration: 06/13/18 03:15 Dose: 10 units/kg/hr, 7.258 mls/hr Dexmedetomidine HCl (Precedex 400mcg/100ml) 400 mcg in 100 mls @ 3.629 mls/hr IV .Q24H PRN; Protocol; 0.2 MCG/KG/HR PRN Reason: Agitation Last Admin: 06/12/18 08:51 Dose: 0.2 mcg/kg/hr, 3.629 mls/hr Lactated Ringer's (Lactated Ringer's) 1,000 mls @ 150 mls/hr IV .Q6H40M [facility] Last Admin: 06/12/18 23:00 Dose: 150 mls/hr Piperacillin Sod/Tazobactam Sod (Zosyn 3.375 In Ns 100ml) 100 mls @ 200 mls/hr IVPB Q6 HECTOR PRN Reason: Protocol Stop: 06/20/18 18:01 Last Admin: 06/13/18 01:00 Dose: 200 mls/hr Dextrose (Dextrose 5% In Water 1000 Ml) 1,000 mls @ 75 mls/hr IV .[id number] [facility] Last Admin: 06/12/18 18:24 Dose: 75 mls/hr Lorazepam (Ativan) 1 mg IVP Q6H PRN; Protocol PRN Reason: Symptoms of alcohol withdrawl Last Admin: 06/12/18 04:58 Dose: 1 mg Pantoprazole Sodium (Protonix Inj) 40 mg IVP DAILY [facility] Last Admin: 06/12/18 09:05 Dose: 40 mg - Labs Labs: 06/12/18 17:19 06/12/18 17:19 PT 12.2 SECONDS (9.4-12.5) 06/11/18 19:13 INR 1.07 06/11/18 19:13 APTT 82.3 Seconds (25.1-36.5) H 06/13/18 02:15 - Constitutional Appears: Non-toxic, No Acute Distress - Head Exam Head Exam: ATRAUMATIC, NORMAL INSPECTION, NORMOCEPHALIC - Eye Exam Eye Exam: EOMI, Normal appearance, PERRL - ENT Exam ENT Exam: Mucous Membranes Moist, Normal Exam - Neck Exam Neck Exam: Full ROM, Normal Inspection - Respiratory Exam Respiratory Exam: Clear to Ausculation Bilateral, NORMAL BREATHING PATTERN - Cardiovascular Exam Cardiovascular Exam: REGULAR RHYTHM, +S1, +S2 - GI/Abdominal Exam GI & Abdominal Exam: Soft, Normal Bowel Sounds. absent: Tenderness - Rectal Exam Rectal Exam: Deferred - Extremities Exam Extremities Exam: Normal Inspection. absent: Pedal Edema, Tenderness - Back Exam Back Exam: NORMAL INSPECTION - Neurological Exam Neurological Exam: Alert, Awake, CN II-XII Intact, Oriented x3 Neuro motor strength exam: Left Upper Extremity: 5, Right Upper Extremity: 5, Left Lower Extremity: 5, Right Lower Extremity: 5 - Psychiatric Exam Psychiatric exam: Normal Affect, Normal Mood - Skin Skin Exam: Dry, Intact, Normal Color, Warm Assessment and Plan - Assessment and Plan (Free Text) Assessment: 28 year old AA male with a history significant for PCP, tobacco, and alcohol abuse who presented after he was found unresponsive in his home by his significant other. Upon arrival to the ED, patient was neither alert nor oriented so HPI information was obtained from chart review and patient's significant other. Patient was found to be in sepsis with a leukocytosis of 37.7 , tachycardia to 118 beats/min, and a lactic acidosis of 4.3. He was given one dose of IV Acyclovir, IV Vancomycin, and IV Zosyn. He was also found to have an elevated troponin of 0.73 that then increased to 3.09. Patient was sent for V/Q scan but could not complete this as he was unable to remain without motion during the study. Patient was placed on Precedex for agitation and BiPap for respiratory acidosis. hE is now off Precedex and BiPap and downgraded to telemetry. Plan: Sepsis- possibly aspiration PNA - Leukocytosis 37.7->22.6 - Afebrile - Lactate 4.7->0.8 - Procal 15.04- trend - CXR: no active disease - CT head: no acute findings - CT chest/abd/pelvis: There is a hazy interstitial infiltrate in the right upper lobe and superior segment of the left lower lobe. Possible pneumonia. - Vancomycin 750 mg IV q12hrs (renal dose- GFR 54)- f/u ID to increase now that RESHMA resolved - Zosyn 3.375 mg IV [id number] - LR @ 100 - Blood, Urine, Sputum, and MRSA cultures pending - UA: negative - Legionella negative - Mycoplasma negative - F/u HIV - F/u Hepatitis panel - ID consulted (Koby) Rhabdomyolysis, worsening - CPK 588->3714 - LR @ 200 - Trend Respiratory acidosis, resolved - ABG on admission, FiO2 32: pH 7.22, pO2 115, pCO2 57 - ABG 06/13, FiO2 40: pH 7.36, pO2 149, pCO2 46 - Anion gap 23->8 - BiPap discontinued Polysubstance Abuse/Overdose - UDS positive for PCP - Salicylates <1, Acetaminophen <10 - BAL 23 - CIWA Q4 - Ativan 1mg Q6 IVP PRN - Precedex drip discontinued - Aspiration, Fall, and Seizure precautions - Poison Control called - IM Ativan, Benadryl, Geodon PRN agitation Elevated Troponin- r/o NSTEMI, PE - Initial troponin positive at 0.73->3.09->2.10->1.18 (trend q6hrs) - EKG: sinus tachycardia - Bedside echo did not show right ventricular strain - CTA: no PE - Heparin drip discontinued - Echo: EF 64%, normal - Cardiology consulted (Dustin) Elevated AST- 2/2 alcohol use - Monitor daily CMP RESHMA, resolved - Creatinine 1.9 (no baseline for comparison)->1.2 - Continue to monitor with daily CMP - Nephrology consulted (Alexia) Transaminitis - AST 109, ALT ALT - Continue to monitor with daily CMP IVF: LR @ 200 Diet: regular GI ppx: Protonix 40 mg IV daily DVT ppx: Heparin 5000 units SC q12hrs Code status: full code Case discussed with attending, Dr. Maldonado. <Angela Maldonado - Last Filed: 06/15/18 16:15> Objective - Vital Signs/Intake and Output Vital Signs (last 24 hours): Temp Pulse Resp BP Pulse Ox 98.2 F 59 L 20 116/76 100 06/14/18 12:00 06/14/18 12:16 06/14/18 12:16 06/14/18 13:00 06/14/18 03:40 - Labs Labs: 06/14/18 07:05 06/14/18 07:05 PT 12.2 SECONDS (9.4-12.5) 06/11/18 19:13 INR 1.07 06/11/18 19:13 APTT 38.8 Seconds (25.1-36.5) H 06/13/18 13:15 Attending/Attestation - Attestation I have personally seen and examined this patient.: Yes I have fully participated in the care of the patient.: Yes I have reviewed all pertinent clinical information, including history, physical exam and plan: Yes Notes (Text): 06/15/18 16:11 Attending note; Patient seen and examined with resident in ICU. Patient's father and brother by the bedside. Patient is alert. Able to answer questions. Patient is a 28 year old male with a history significant for PCP, tobacco, and alcohol abuse who presented after he was found unresponsive in his home by his significant other. Patient was initially placed on BiPAP. Currently on room air. Not in any acute distress. Denies any chest pain or cough. Denies any abdominal pain. Urine output is adequate. Patient has right upper lobe aspiration pneumonia with leukocytosis. Currently on IV vancomycin and Zosyn. Patient is currently afebrile. Acute renal failure; secondary to episodes of hypotension. Resolved. Elevated troponin; secondary to hemodynamic changes. Cardiology evaluation appreciated. Patient has normal ejection fraction. We will follow up closely. Complete drug abuse cessation is strongly advised. Smoking cessation is strongly advised. Complete alcohol cessation is strongly advised. Psychiatric evaluation requested. Case discussed with patient's family in detail. Monitor closely in ICU.
[2018-06-13] MEDS: Heparin25000 units/250ml 1/2NS 25,000 UNITS/250 ML BAG IV SCH (05:45)
[2018-06-13 06:13] LABS: ARTERIAL BLOOD GAS O2 CAPACITY 18.1 mL/dl (16-24); ARTERIAL BLOOD GAS O2 SAT 99.5 % (95-98); ARTERIAL BLOOD GAS PCO2 46 mm/Hg (35-45); ARTERIAL BLOOD GAS PH 7.36 (7.35-7.45); ARTERIAL BLOOD GAS TCO2 27.4 mmol.L (22-28)
[2018-06-13 06:50] LABS: BASO # 0.02 K/mm3 (0.0-2.0); BASO % 0.2 % (0.0-3.0); EOS # 0.1 (0.0-0.7); EOS % 0.7 % (1.5-5.0); GRAN # 7.77 (1.4-6.5); GRAN % 77.8 % (50.0-68.0); HEMOGLOBIN 12.4 g/dL (14.0-18.0); LYMPH # 1.3 (1.2-3.4); LYMPH % 12.8 % (22.0-35.0); MEAN CELL VOLUME 84.4 fl (80.0-105.0); MEAN CORPUSCULAR HEMOGLOBIN 28.1 pg (25.0-35.0); MEAN CORPUSCULAR HGB CONC 33.2 g/dl (31.0-37.0); MEAN PLATELET VOLUME 11.7 fl (7.0-11.0); MONO # 0.9 (0.1-0.6); MONO % 8.5 % (1.0-6.0); RBC 4.42 10^6/uL (3.5-6.1); RED CELL DISTRIBUTION WIDTH 14.7 % (11.5-14.5)
[2018-06-13 07:34] LABS: ALB/GLOB RATIO 1.2 (1.1-1.8); ALBUMIN 3.5 g/dL (3.0-4.8); ALT/SGPT 62 U/L (7-56); AST/SGOT 109 U/L (17-59); BLOOD UREA NITROGEN 8 mg/dL (7-21); CALCIUM 8.7 mg/dL (8.4-10.5); GFR NON-AFRICAN AMERICAN > 60
[2018-06-13 07:49] LABS: CK MB% 0.3 % (2.5-3.0); CK-MB 11.1 ng/mL (0.0-3.6)
--- NOTE | 2018-06-13 08:45 | CP.CCUPN ---
<Tyler Castle - Last Filed: 06/13/18 12:40> CCU Subjective - Physician Review Subjective (Free Text): 06/13/18 08:43 Tyler Castle DO PGY1 - Internal medicine [employer] - ICU Progress Note Pt seen and examined at bedside No acute events overnight; Patient somnolent at this time Denies any complaints on interview; Tolerating diet well 12 system ROS otherwise negative CCU Objective - Vital Signs / Intake & Output Vital Signs (Last 4 hours): Vital Signs Pulse Resp BP Pulse Ox 06/13/18 08:10 72 21 100 06/13/18 08:00 77 22 133/75 100 06/13/18 07:54 67 32 H 06/13/18 07:50 75 30 H 93 L 06/13/18 07:40 70 17 100 06/13/18 07:30 70 25 H 98 06/13/18 07:20 73 20 99 06/13/18 07:14 65 14 06/13/18 07:13 79 21 06/13/18 07:10 64 23 88 L 06/13/18 07:09 81 12 06/13/18 07:08 74 22 06/13/18 07:07 80 06/13/18 07:00 66 22 128/73 100 06/13/18 06:50 65 22 99 06/13/18 06:40 70 23 93 L 06/13/18 06:30 66 22 100 06/13/18 06:20 74 22 100 06/13/18 06:10 70 23 100 06/13/18 06:00 74 15 139/80 100 06/13/18 05:50 75 22 100 06/13/18 05:43 68 22 06/13/18 05:42 70 22 06/13/18 05:41 71 19 06/13/18 05:40 69 23 06/13/18 05:39 68 22 06/13/18 05:38 77 18 05:37 64 18 06/13/18 05:36 68 22 06/13/18 05:35 69 22 18 05:34 70 22 06/13/18 05:33 68 22 18 05:32 70 20 06/13/18 05:31 71 22 06/13/18 05:30 71 22 06/13/18 05:29 72 09/17/18 05:28 70 22 17/18 05:27 69 22 17/18 05:26 70 21 06/13/18 05:25 72 22 18 05:24 73 35 H 18 05:23 72 22 17/18 05:22 74 22 06/13/18 05:21 71 22 17/18 05:20 71 22 18 05:19 70 22 18 05:18 73 22 18 05:17 72 22 06/13/18 05:16 76 22 06/13/18 05:15 72 22 18 05:14 71 20 06/13/18 05:13 71 22 06/13/18 05:12 65 22 18 05:11 72 22 18 05:10 73 22 18 05:09 72 15 06/13/18 05:08 73 22 18 05:07 72 22 06/13/18 05:06 68 22 18 05:05 70 22 06/13/18 05:04 79 22 18 05:03 75 23 06/13/18 05:02 79 22 18 05:01 75 22 18 05:00 136/78 18 04:59 75 22 06/13/18 04:58 71 22 06/13/18 04:57 73 22 06/13/18 04:56 75 22 06/13/18 04:55 73 22 18 04:54 74 23 18 04:53 73 22 18 04:52 73 23 06/13/18 04:51 78 24 18 04:50 71 22 18 04:49 67 22 18 04:48 74 28 H 06/13/18 04:47 87 13 06/13/18 04:46 78 19 18 04:45 83 59 H 06/13/18 04:44 75 Intake and Output (Last 8hrs): Intake & Output 06/12/1806/13/18 06/13/18 22:59 06:59 14:59 Intake Total 20120 4 Output Total 2200 1200 Balance -187 1460 4 Intake: IV 2012 2660 4 Left Forearm 1932 2585 Output: Urine 2200 1200 Condom 2200 1200 Stool 0 Other: # Bowel Movements 0 - Physical Exam Head: Positive for: Atraumatic, Normocephalic Pupils: Positive for: PERRL, Sluggish, Pinpoint Extroacular Muscles: Positive for: EOMI Conjunctiva: Positive for: Normal Ears: Positive for: Normal Mouth: Positive for: Moist Mucous Membranes Pharnyx: Positive for: Normal Nose (External): Positive for: Atraumatic Nose (Internal): Positive for: Normal Inspection Neck: Positive for: Normal Range of Motion Respiratory/Chest: Positive for: Rales, Rhonchi, Other (RLL/LLL Rales ) Cardiovascular: Positive for: Regular Rate and Rhythm Abdomen: Positive for: Normal Bowel Sounds. Negative for: Tenderness, Distention, Peritoneal Signs, Rebound, Guarding, McBurney's Point Tender, Rovsing's Sign Present, Hernias, Feeding Tubes, Ostomy Tubes, Mass/Organomegaly , Scars, Other Back: Positive for: Normal Inspection Upper Extremity: Positive for: Normal Inspection Lower Extremity: Positive for: Normal Inspection Neurological: Positive for: GCS=15, Motor Func Grossly Intact, Other (Somnolent , Pinpoint pupils, on precedex ) Skin: Positive for: Warm, Normal Color Psychiatric: Positive for: Alert, Oriented x 3 - Medications Active Medications: Active Medications Generic Name Dose Route Start Last Admin Trade Name Freq PRN Reason Stop Dose Admin Vancomycin HCl 750 mg in 250 mls @ 167 mls/hr 06/12/18 10:00 06/12/18 22:30 Vancomycin 750 Mg In Ns IVPB 167 mls/hr Q12 HECTOR Administration Protocol Heparin Sodium/Sodium Chloride 25,000 units in 250 mls @ 8.709 mls/hr 05:45 06/13/18 05:45 Heparin 75822 Units/250ml 1/2 Normal Saline IV 10 units/kg/hr .Q24H HECTOR 7.258 mls/hr Protocol Administration 12 UNITS/KG/HR Dexmedetomidine HCl 400 mcg in 100 mls @ 3.629 mls/hr 06/12/18 07:44 07:00 Precedex 400mcg/100ml IV 0.1 mcg/kg/hr .Q24H PRN 1.814 mls/hr Agitation Titration Protocol 0.2 MCG/KG/HR Lactated Ringer's 1,000 mls @ 150 mls/hr 06/12/18 08:00 06/13/18 05:00 Lactated Ringer's IV 150 mls/hr .[id number] HECTOR Administration Piperacillin Sod/Tazobactam Sod 100 mls @ 200 mls/hr 06/12/18 18:00 06/13/18 05:29 Zosyn 3.375 In Ns 100ml IVPB 06/20/18 18:01 200 mls/hr Q6 HECTOR Administration Protocol Dextrose 1,000 mls @ 75 mls/hr 06/12/18 18:30 06/13/18 08:15 Dextrose 5% In Water 1000 Ml IV 75 mls/hr .[id number] HECTOR Administration Lorazepam 1 mg 06/11/18 23:40 06/12/18 04:58 Ativan IVP 1 mg Q6H PRN Administration Symptoms of alcohol withdrawl Protocol Pantoprazole Sodium 40 mg 06/12/18 10:00 06/12/18 09:05 Protonix Inj IVP 40 mg DAILY HECTOR Administration - Patient Studies Lab Studies: Lab Studies 06/13/18 06/13/18 06/13/18 Range/Units 05:52 05:48 05:30 WBC (4.5-11.0) 10^3/ul RBC (3.5-6.1) 10^6/uL Hgb (14.0-18.0) g/dL Hct (42.0-52.0) % MCV (80.0-105.0) fl MCH (25.0-35.0) pg MCHC (31.0-37.0) g/dl RDW (11.5-14.5) % Plt Count (120.0-450.0) 10^3/uL MPV (7.0-11.0) fl Gran % (50.0-68.0) % Lymph % (Auto) (22.0-35.0) % [place] % (Auto) (1.0-6.0) % Eos % (Auto) (1.5-5.0) % Baso % (Auto) (0.0-3.0) % Gran # (1.4-6.5) Lymph # (Auto) (1.2-3.4) [place] # (Auto) (0.1-0.6) Eos # (Auto) (0.0-0.7) Baso # (Auto) (0.0-2.0) K/mm3 APTT (25.1-36.5) Seconds D-Dimer, Quantitative (0-243) ng/mlDDU pCO2 46 H (35-45) mm/Hg pO2 149.0 H (80-100) mm/Hg HCO3 26.0 (21-28) mmol/L ABG pH 7.36 (7.35-7.45) ABG Total CO2 27.4 (22-28) mmol.L ABG O2 Saturation 99.5 H (95-98) % ABG O2 Content 18.0 (15-23) ML/dl ABG Base Excess 0.1 (-2.0-3.0) mmol/L ABG Hemoglobin 13.0 (11.7-17.4) g/dL ABG Carboxyhemoglobin 1.3 (0.5-1.5) % POC ABG HHb (Measured) 0.5 (0-5) % ABG Methemoglobin 1.2 (0.0-3.0) % ABG O2 Capacity 18.1 (16-24) mL/dl Hgb O2 Saturation 97.0 (95.0-98.0) % FiO2 40.0 % Sodium 140 (132-148) mmol/L Potassium 3.8 (3.6-5.0) mmol/L Chloride 110 H (98-107) mmol/L Carbon Dioxide 26 (21-33) mmol/L Anion Gap 8 L (10-20) BUN 8 (7-21) mg/dL Creatinine 1.1 (0.8-1.5) mg/dl Est GFR ( Amer) > 60 Est GFR (Non-Af Amer) > 60 POC Glucose (mg/dL) 98 (65-110) mg/dL Random Glucose 99 (70-110) mg/dL Calcium 8.7 (8.4-10.5) mg/dL Phosphorus 2.9 (2.5-4.5) mg/dL Magnesium 2.0 (1.7-2.2) mg/dL Total Bilirubin 0.8 (0.2-1.3) mg/dL AST 109 H D (17-59) U/L ALT 62 H (7-56) U/L Alkaline Phosphatase 58 (38-126) U/L Total Creatine Kinase 3714 H (35-230) U/L CK-MB (CK-2) 11.1 H (0.0-3.6) ng/mL CK-MB (CK-2) % 0.3 L (2.5-3.0) % Troponin I ng/mL Total Protein 6.3 (5.8-8.3) g/dL Albumin 3.5 (3.0-4.8) g/dL Globulin 2.9 gm/dL Albumin/Globulin Ratio 1.2 (1.1-1.8) Procalcitonin (0.19-0.49) NG/ML Ur L.pneumophila Ag (NEGATIVE) Mycoplasma pneumon IgM (NEGATIVE) 06/13/18 06/13/18 06/13/18 Range/Units 05:30 03:51 02:15 WBC 10.0 D (4.5-11.0) 10^3/ul RBC 4.42 (3.5-6.1) 10^6/uL Hgb 12.4 L (14.0-18.0) g/dL Hct 37.3 L (42.0-52.0) % MCV 84.4 (80.0-105.0) fl MCH 28.1 (25.0-35.0) pg MCHC 33.2 (31.0-37.0) g/dl RDW 14.7 H (11.5-14.5) % Plt Count 146 (120.0-450.0) 10^3/uL MPV 11.7 H (7.0-11.0) fl Gran % 77.8 H (50.0-68.0) % Lymph % (Auto) 12.8 L (22.0-35.0) % [place] % (Auto) 8.5 H (1.0-6.0) % Eos % (Auto) 0.7 L (1.5-5.0) % Baso % (Auto) 0.2 (0.0-3.0) % Gran # 7.77 H (1.4-6.5) Lymph # (Auto) 1.3 (1.2-3.4) [place] # (Auto) 0.9 H (0.1-0.6) Eos # (Auto) 0.1 (0.0-0.7) Baso # (Auto) 0.02 (0.0-2.0) K/mm3 APTT 82.3 H (25.1-36.5) Seconds D-Dimer, Quantitative (0-243) ng/mlDDU pCO2 (35-45) mm/Hg pO2 (80-100) mm/Hg HCO3 (21-28) mmol/L ABG pH (7.35-7.45) ABG Total CO2 (22-28) mmol.L ABG O2 Saturation (95-98) % ABG O2 Content (15-23) ML/dl ABG Base Excess (-2.0-3.0) mmol/L ABG Hemoglobin (11.7-17.4) g/dL ABG Carboxyhemoglobin (0.5-1.5) % POC ABG HHb (Measured) (0-5) % ABG Methemoglobin (0.0-3.0) % ABG O2 Capacity (16-24) mL/dl Hgb O2 Saturation (95.0-98.0) % FiO2 % Sodium (132-148) mmol/L Potassium (3.6-5.0) mmol/L Chloride (98-107) mmol/L Carbon Dioxide (21-33) mmol/L Anion Gap (10-20) BUN (7-21) mg/dL Creatinine (0.8-1.5) mg/dl Est GFR ( Amer) Est GFR (Non-Af Amer) POC Glucose (mg/dL) 86 (65-110) mg/dL Random Glucose (70-110) mg/dL Calcium (8.4-10.5) mg/dL Phosphorus (2.5-4.5) mg/dL Magnesium (1.7-2.2) mg/dL Total Bilirubin (0.2-1.3) mg/dL AST (17-59) U/L ALT (7-56) U/L Alkaline Phosphatase (38-126) U/L Total Creatine Kinase (35-230) U/L CK-MB (CK-2) (0.0-3.6) ng/mL CK-MB (CK-2) % (2.5-3.0) % Troponin I ng/mL Total Protein (5.8-8.3) g/dL Albumin (3.0-4.8) g/dL Globulin gm/dL Albumin/Globulin Ratio (1.1-1.8) Procalcitonin (0.19-0.49) NG/ML Ur L.pneumophila Ag (NEGATIVE) Mycoplasma pneumon IgM (NEGATIVE) 06/12/18 06/12/18 06/12/18 Range/Units 23:24 19:30 18:52 WBC (4.5-11.0) 10^3/ul RBC (3.5-6.1) 10^6/uL Hgb (14.0-18.0) g/dL Hct (42.0-52.0) % MCV (80.0-105.0) fl MCH (25.0-35.0) pg MCHC (31.0-37.0) g/dl RDW (11.5-14.5) % Plt Count (120.0-450.0) 10^3/uL MPV (7.0-11.0) fl Gran % (50.0-68.0) % Lymph % (Auto) (22.0-35.0) % [place] % (Auto) (1.0-6.0) % Eos % (Auto) (1.5-5.0) % Baso % (Auto) (0.0-3.0) % Gran # (1.4-6.5) Lymph # (Auto) (1.2-3.4) [place] # (Auto) (0.1-0.6) Eos # (Auto) (0.0-0.7) Baso # (Auto) (0.0-2.0) K/mm3 APTT 84.0 H (25.1-36.5) Seconds D-Dimer, Quantitative (0-243) ng/mlDDU pCO2 (35-45) mm/Hg pO2 (80-100) mm/Hg HCO3 (21-28) mmol/L ABG pH (7.35-7.45) ABG Total CO2 (22-28) mmol.L ABG O2 Saturation (95-98) % ABG O2 Content (15-23) ML/dl ABG Base Excess (-2.0-3.0) mmol/L ABG Hemoglobin (11.7-17.4) g/dL ABG Carboxyhemoglobin (0.5-1.5) % POC ABG HHb (Measured) (0-5) % ABG Methemoglobin (0.0-3.0) % ABG O2 Capacity (16-24) mL/dl Hgb O2 Saturation (95.0-98.0) % FiO2 % Sodium (132-148) mmol/L Potassium (3.6-5.0) mmol/L Chloride (98-107) mmol/L Carbon Dioxide (21-33) mmol/L Anion Gap (10-20) BUN (7-21) mg/dL Creatinine (0.8-1.5) mg/dl Est GFR ( Amer) Est GFR (Non-Af Amer) POC Glucose (mg/dL) 72 126 H (65-110) mg/dL Random Glucose (70-110) mg/dL Calcium (8.4-10.5) mg/dL Phosphorus (2.5-4.5) mg/dL Magnesium (1.7-2.2) mg/dL Total Bilirubin (0.2-1.3) mg/dL AST (17-59) U/L ALT (7-56) U/L Alkaline Phosphatase (38-126) U/L Total Creatine Kinase (35-230) U/L CK-MB (CK-2) (0.0-3.6) ng/mL CK-MB (CK-2) % (2.5-3.0) % Troponin I ng/mL Total Protein (5.8-8.3) g/dL Albumin (3.0-4.8) g/dL Globulin gm/dL Albumin/Globulin Ratio (1.1-1.8) Procalcitonin (0.19-0.49) NG/ML Ur L.pneumophila Ag (NEGATIVE) Mycoplasma pneumon IgM (NEGATIVE) 06/12/18 06/12/18 06/12/18 Range/Units 17:22 17:19 17:19 WBC 13.7 H D (4.5-11.0) 10^3/ul RBC 4.55 (3.5-6.1) 10^6/uL Hgb 12.9 L (14.0-18.0) g/dL Hct 38.9 L (42.0-52.0) % MCV 85.5 (80.0-105.0) fl MCH 28.4 (25.0-35.0) pg MCHC 33.2 (31.0-37.0) g/dl RDW 15.0 H (11.5-14.5) % Plt Count 152 (120.0-450.0) 10^3/uL MPV 11.1 H (7.0-11.0) fl Gran % 77.4 H (50.0-68.0) % Lymph % (Auto) 12.8 L (22.0-35.0) % [place] % (Auto) 9.6 H (1.0-6.0) % Eos % (Auto) 0.1 L (1.5-5.0) % Baso % (Auto) 0.1 (0.0-3.0) % Gran # 10.61 H (1.4-6.5) Lymph # (Auto) 1.8 (1.2-3.4) [place] # (Auto) 1.3 H (0.1-0.6) Eos # (Auto) 0.0 (0.0-0.7) Baso # (Auto) 0.01 (0.0-2.0) K/mm3 APTT (25.1-36.5) Seconds D-Dimer, Quantitative (0-243) ng/mlDDU pCO2 (35-45) mm/Hg pO2 (80-100) mm/Hg HCO3 (21-28) mmol/L ABG pH (7.35-7.45) ABG Total CO2 (22-28) mmol.L ABG O2 Saturation (95-98) % ABG O2 Content (15-23) ML/dl ABG Base Excess (-2.0-3.0) mmol/L ABG Hemoglobin (11.7-17.4) g/dL ABG Carboxyhemoglobin (0.5-1.5) % POC ABG HHb (Measured) (0-5) % ABG Methemoglobin (0.0-3.0) % ABG O2 Capacity (16-24) mL/dl Hgb O2 Saturation (95.0-98.0) % FiO2 % Sodium 143 (132-148) mmol/L Potassium 4.5 (3.6-5.0) mmol/L Chloride 110 H (98-107) mmol/L Carbon Dioxide 27 (21-33) mmol/L Anion Gap 10 (10-20) BUN 13 (7-21) mg/dL Creatinine 1.3 (0.8-1.5) mg/dl Est GFR ( Amer) > 60 Est GFR (Non-Af Amer) > 60 POC Glucose (mg/dL) (65-110) mg/dL Random Glucose 37 L* D (70-110) mg/dL Calcium 8.5 (8.4-10.5) mg/dL Phosphorus (2.5-4.5) mg/dL Magnesium (1.7-2.2) mg/dL Total Bilirubin 0.7 (0.2-1.3) mg/dL AST 83 H (17-59) U/L ALT 41 (7-56) U/L Alkaline Phosphatase 63 (38-126) U/L Total Creatine Kinase 1163 H (35-230) U/L CK-MB (CK-2) 15.5 H (0.0-3.6) ng/mL CK-MB (CK-2) % 1.3 L (2.5-3.0) % Troponin I 1.18 H* D ng/mL Total Protein 6.8 (5.8-8.3) g/dL Albumin 3.8 (3.0-4.8) g/dL Globulin 3.0 gm/dL Albumin/Globulin Ratio 1.3 (1.1-1.8) Procalcitonin (0.19-0.49) NG/ML Ur L.pneumophila Ag (NEGATIVE) Mycoplasma pneumon IgM Negative (NEGATIVE) 06/12/18 06/12/18 06/12/18 Range/Units 16:30 15:53 14:59 WBC (4.5-11.0) 10^3/ul RBC (3.5-6.1) 10^6/uL Hgb (14.0-18.0) g/dL Hct (42.0-52.0) % MCV (80.0-105.0) fl MCH (25.0-35.0) pg MCHC (31.0-37.0) g/dl RDW (11.5-14.5) % Plt Count (120.0-450.0) 10^3/uL MPV (7.0-11.0) fl Gran % (50.0-68.0) % Lymph % (Auto) (22.0-35.0) % [place] % (Auto) (1.0-6.0) % Eos % (Auto) (1.5-5.0) % Baso % (Auto) (0.0-3.0) % Gran # (1.4-6.5) Lymph # (Auto) (1.2-3.4) [place] # (Auto) (0.1-0.6) Eos # (Auto) (0.0-0.7) Baso # (Auto) (0.0-2.0) K/mm3 APTT (25.1-36.5) Seconds D-Dimer, Quantitative 923 H (0-243) ng/mlDDU pCO2 46 H (35-45) mm/Hg pO2 158.0 H (80-100) mm/Hg HCO3 21.1 (21-28) mmol/L ABG pH 7.27 L (7.35-7.45) ABG Total CO2 22.5 (22-28) mmol.L ABG O2 Saturation 99.4 H (95-98) % ABG O2 Content 16.1 (15-23) ML/dl ABG Base Excess -5.7 L (-2.0-3.0) mmol/L ABG Hemoglobin 11.6 L (11.7-17.4) g/dL ABG Carboxyhemoglobin 1.5 (0.5-1.5) % POC ABG HHb (Measured) 0.6 (0-5) % ABG Methemoglobin 0.9 (0.0-3.0) % ABG O2 Capacity 16.2 (16-24) mL/dl Hgb O2 Saturation 97.0 (95.0-98.0) % FiO2 30.0 % Sodium (132-148) mmol/L Potassium (3.6-5.0) mmol/L Chloride (98-107) mmol/L Carbon Dioxide (21-33) mmol/L Anion Gap (10-20) BUN (7-21) mg/dL Creatinine (0.8-1.5) mg/dl Est GFR ( Amer) Est GFR (Non-Af Amer) POC Glucose (mg/dL) (65-110) mg/dL Random Glucose (70-110) mg/dL Calcium (8.4-10.5) mg/dL Phosphorus (2.5-4.5) mg/dL Magnesium (1.7-2.2) mg/dL Total Bilirubin (0.2-1.3) mg/dL AST (17-59) U/L ALT (7-56) U/L Alkaline Phosphatase (38-126) U/L Total Creatine Kinase (35-230) U/L CK-MB (CK-2) (0.0-3.6) ng/mL CK-MB (CK-2) % (2.5-3.0) % Troponin I ng/mL Total Protein (5.8-8.3) g/dL Albumin (3.0-4.8) g/dL Globulin gm/dL Albumin/Globulin Ratio (1.1-1.8) Procalcitonin (0.19-0.49) NG/ML Ur L.pneumophila Ag Negative (NEGATIVE) Mycoplasma pneumon IgM (NEGATIVE) 06/12/18 06/12/18 06/12/18 Range/Units 12:16 11:00 10:50 WBC (4.5-11.0) 10^3/ul RBC (3.5-6.1) 10^6/uL Hgb (14.0-18.0) g/dL Hct (42.0-52.0) % MCV (80.0-105.0) fl MCH (25.0-35.0) pg MCHC (31.0-37.0) g/dl RDW (11.5-14.5) % Plt Count (120.0-450.0) 10^3/uL MPV (7.0-11.0) fl Gran % (50.0-68.0) % Lymph % (Auto) (22.0-35.0) % [place] % (Auto) (1.0-6.0) % Eos % (Auto) (1.5-5.0) % Baso % (Auto) (0.0-3.0) % Gran # (1.4-6.5) Lymph # (Auto) (1.2-3.4) [place] # (Auto) (0.1-0.6) Eos # (Auto) (0.0-0.7) Baso # (Auto) (0.0-2.0) K/mm3 APTT 89.2 H (25.1-36.5) Seconds D-Dimer, Quantitative (0-243) ng/mlDDU pCO2 58 H (35-45) mm/Hg pO2 134.0 H (80-100) mm/Hg HCO3 27.3 (21-28) mmol/L ABG pH 7.28 L (7.35-7.45) ABG Total CO2 29.1 H (22-28) mmol.L ABG O2 Saturation 99.8 H (95-98) % ABG O2 Content 18.3 (15-23) ML/dl ABG Base Excess -0.6 (-2.0-3.0) mmol/L ABG Hemoglobin 13.3 (11.7-17.4) g/dL ABG Carboxyhemoglobin 2.1 H (0.5-1.5) % POC ABG HHb (Measured) 0.2 (0-5) % ABG Methemoglobin 1.1 (0.0-3.0) % ABG O2 Capacity 18.3 (16-24) mL/dl Hgb O2 Saturation 96.6 (95.0-98.0) % FiO2 30.0 % Sodium 142 (132-148) mmol/L Potassium 4.3 (3.6-5.0) mmol/L Chloride 110 H (98-107) mmol/L Carbon Dioxide 24 (21-33) mmol/L Anion Gap 12 (10-20) BUN 14 (7-21) mg/dL Creatinine 1.4 (0.8-1.5) mg/dl Est GFR ( Amer) > 60 Est GFR (Non-Af Amer) 60 POC Glucose (mg/dL) (65-110) mg/dL Random Glucose 70 (70-110) mg/dL Calcium 8.8 (8.4-10.5) mg/dL Phosphorus (2.5-4.5) mg/dL Magnesium (1.7-2.2) mg/dL Total Bilirubin 0.8 (0.2-1.3) mg/dL AST 82 H (17-59) U/L ALT 41 (7-56) U/L Alkaline Phosphatase 62 (38-126) U/L Total Creatine Kinase (35-230) U/L CK-MB (CK-2) (0.0-3.6) ng/mL CK-MB (CK-2) % (2.5-3.0) % Troponin I ng/mL Total Protein 7.0 (5.8-8.3) g/dL Albumin 4.1 (3.0-4.8) g/dL Globulin 3.0 gm/dL Albumin/Globulin Ratio 1.4 (1.1-1.8) Procalcitonin (0.19-0.49) NG/ML Ur L.pneumophila Ag (NEGATIVE) Mycoplasma pneumon IgM (NEGATIVE) 06/12/18 06/12/18 Range/Units 10:00 03:00 WBC (4.5-11.0) 10^3/ul RBC (3.5-6.1) 10^6/uL Hgb (14.0-18.0) g/dL Hct (42.0-52.0) % MCV (80.0-105.0) fl MCH (25.0-35.0) pg MCHC (31.0-37.0) g/dl RDW (11.5-14.5) % Plt Count (120.0-450.0) 10^3/uL MPV (7.0-11.0) fl Gran % (50.0-68.0) % Lymph % (Auto) (22.0-35.0) % [place] % (Auto) (1.0-6.0) % Eos % (Auto) (1.5-5.0) % Baso % (Auto) (0.0-3.0) % Gran # (1.4-6.5) Lymph # (Auto) (1.2-3.4) [place] # (Auto) (0.1-0.6) Eos # (Auto) (0.0-0.7) Baso # (Auto) (0.0-2.0) K/mm3 APTT (25.1-36.5) Seconds D-Dimer, Quantitative (0-243) ng/mlDDU pCO2 (35-45) mm/Hg pO2 (80-100) mm/Hg HCO3 (21-28) mmol/L ABG pH (7.35-7.45) ABG Total CO2 (22-28) mmol.L ABG O2 Saturation (95-98) % ABG O2 Content (15-23) ML/dl ABG Base Excess (-2.0-3.0) mmol/L ABG Hemoglobin (11.7-17.4) g/dL ABG Carboxyhemoglobin (0.5-1.5) % POC ABG HHb (Measured) (0-5) % ABG Methemoglobin (0.0-3.0) % ABG O2 Capacity (16-24) mL/dl Hgb O2 Saturation (95.0-98.0) % FiO2 % Sodium (132-148) mmol/L Potassium (3.6-5.0) mmol/L Chloride (98-107) mmol/L Carbon Dioxide (21-33) mmol/L Anion Gap (10-20) BUN (7-21) mg/dL Creatinine (0.8-1.5) mg/dl Est GFR ( Amer) Est GFR (Non-Af Amer) POC Glucose (mg/dL) (65-110) mg/dL Random Glucose (70-110) mg/dL Calcium (8.4-10.5) mg/dL Phosphorus (2.5-4.5) mg/dL Magnesium (1.7-2.2) mg/dL Total Bilirubin (0.2-1.3) mg/dL AST (17-59) U/L ALT (7-56) U/L Alkaline Phosphatase (38-126) U/L Total Creatine Kinase 897 H (35-230) U/L CK-MB (CK-2) 16.7 H (0.0-3.6) ng/mL CK-MB (CK-2) % 1.9 L (2.5-3.0) % Troponin I 2.10 H* D ng/mL Total Protein (5.8-8.3) g/dL Albumin (3.0-4.8) g/dL Globulin gm/dL Albumin/Globulin Ratio (1.1-1.8) Procalcitonin 15.04 H (0.19-0.49) NG/ML Ur L.pneumophila Ag (NEGATIVE) Mycoplasma pneumon IgM (NEGATIVE) Laboratory Results - last 24 hr 06/12/18 06/12/18 06/12/18 03:00 10:00 10:50 WBC RBC Hgb Hct MCV MCH MCHC RDW Plt Count MPV Gran % Lymph % (Auto) [place] % (Auto) Eos % (Auto) Baso % (Auto) Gran # Lymph # (Auto) [place] # (Auto) Eos # (Auto) Baso # (Auto) APTT D-Dimer, Quantitative pCO2 58 H pO2 134.0 H HCO3 27.3 ABG pH 7.28 L ABG Total CO2 29.1 H ABG O2 Saturation 99.8 H ABG O2 Content 18.3 ABG Base Excess -0.6 ABG Hemoglobin 13.3 ABG Carboxyhemoglobin 2.1 H POC ABG HHb (Measured) 0.2 ABG Methemoglobin 1.1 ABG O2 Capacity 18.3 Hgb O2 Saturation 96.6 FiO2 30.0 Sodium Potassium Chloride Carbon Dioxide Anion Gap BUN Creatinine Est GFR ( Amer) Est GFR (Non-Af Amer) POC Glucose (mg/dL) Random Glucose Calcium Phosphorus Magnesium Total Bilirubin AST ALT Alkaline Phosphatase Total Creatine Kinase 897 H CK-MB (CK-2) 16.7 H CK-MB (CK-2) % 1.9 L Troponin I 2.10 H* D Total Protein Albumin Globulin Albumin/Globulin Ratio Procalcitonin 15.04 H Ur L.pneumophila Ag Mycoplasma pneumon IgM 06/12/18 06/12/18 06/12/18 11:00 12:16 14:59 WBC RBC Hgb Hct MCV MCH MCHC RDW Plt Count MPV Gran % Lymph % (Auto) [place] % (Auto) Eos % (Auto) Baso % (Auto) Gran # Lymph # (Auto) [place] # (Auto) Eos # (Auto) Baso # (Auto) APTT 89.2 H D-Dimer, Quantitative 923 H pCO2 pO2 HCO3 ABG pH ABG Total CO2 ABG O2 Saturation ABG O2 Content ABG Base Excess ABG Hemoglobin ABG Carboxyhemoglobin POC ABG HHb (Measured) ABG Methemoglobin ABG O2 Capacity Hgb O2 Saturation FiO2 Sodium 142 Potassium 4.3 Chloride 110 H Carbon Dioxide 24 Anion Gap 12 BUN 14 Creatinine 1.4 Est GFR ( Amer) > 60 Est GFR (Non-Af Amer) 60 POC Glucose (mg/dL) Random Glucose 70 Calcium 8.8 Phosphorus Magnesium Total Bilirubin 0.8 AST 82 H ALT 41 Alkaline Phosphatase 62 Total Creatine Kinase CK-MB (CK-2) CK-MB (CK-2) % Troponin I Total Protein 7.0 Albumin 4.1 Globulin 3.0 Albumin/Globulin Ratio 1.4 Procalcitonin Ur L.pneumophila Ag Mycoplasma pneumon IgM 06/12/18 06/12/18 06/12/18 15:53 16:30 17:19 WBC 13.7 H D RBC 4.55 Hgb 12.9 L Hct 38.9 L MCV 85.5 MCH 28.4 MCHC 33.2 RDW 15.0 H Plt Count 152 MPV 11.1 H Gran % 77.4 H Lymph % (Auto) 12.8 L [place] % (Auto) 9.6 H Eos % (Auto) 0.1 L Baso % (Auto) 0.1 Gran # 10.61 H Lymph # (Auto) 1.8 [place] # (Auto) 1.3 H Eos # (Auto) 0.0 Baso # (Auto) 0.01 APTT D-Dimer, Quantitative pCO2 46 H pO2 158.0 H HCO3 21.1 ABG pH 7.27 L ABG Total CO2 22.5 ABG O2 Saturation 99.4 H ABG O2 Content 16.1 ABG Base Excess -5.7 L ABG Hemoglobin 11.6 L ABG Carboxyhemoglobin 1.5 POC ABG HHb (Measured) 0.6 ABG Methemoglobin 0.9 ABG O2 Capacity 16.2 Hgb O2 Saturation 97.0 FiO2 30.0 Sodium Potassium Chloride Carbon Dioxide Anion Gap BUN Creatinine Est GFR ( Amer) Est GFR (Non-Af Amer) POC Glucose (mg/dL) Random Glucose Calcium Phosphorus Magnesium Total Bilirubin AST ALT Alkaline Phosphatase Total Creatine Kinase CK-MB (CK-2) CK-MB (CK-2) % Troponin I Total Protein Albumin Globulin Albumin/Globulin Ratio Procalcitonin Ur L.pneumophila Ag Negative Mycoplasma pneumon IgM 06/12/18 06/12/18 06/12/18 17:19 17:22 18:52 WBC RBC Hgb Hct MCV MCH MCHC RDW Plt Count MPV Gran % Lymph % (Auto) [place] % (Auto) Eos % (Auto) Baso % (Auto) Gran # Lymph # (Auto) [place] # (Auto) Eos # (Auto) Baso # (Auto) APTT D-Dimer, Quantitative pCO2 pO2 HCO3 ABG pH ABG Total CO2 ABG O2 Saturation ABG O2 Content ABG Base Excess ABG Hemoglobin ABG Carboxyhemoglobin POC ABG HHb (Measured) ABG Methemoglobin ABG O2 Capacity Hgb O2 Saturation FiO2 Sodium 143 Potassium 4.5 Chloride 110 H Carbon Dioxide 27 Anion Gap 10 BUN 13 Creatinine 1.3 Est GFR ( Amer) > 60 Est GFR (Non-Af Amer) > 60 POC Glucose (mg/dL) 126 H Random Glucose 37 L* D Calcium 8.5 Phosphorus Magnesium Total Bilirubin 0.7 AST 83 H ALT 41 Alkaline Phosphatase 63 Total Creatine Kinase 1163 H CK-MB (CK-2) 15.5 H CK-MB (CK-2) % 1.3 L Troponin I 1.18 H* D Total Protein 6.8 Albumin 3.8 Globulin 3.0 Albumin/Globulin Ratio 1.3 Procalcitonin Ur L.pneumophila Ag Mycoplasma pneumon IgM Negative 06/12/18 06/12/18 06/13/18 19:30 23:24 02:15 WBC RBC Hgb Hct MCV MCH MCHC RDW Plt Count MPV Gran % Lymph % (Auto) [place] % (Auto) Eos % (Auto) Baso % (Auto) Gran # Lymph # (Auto) [place] # (Auto) Eos # (Auto) Baso # (Auto) APTT 84.0 H 82.3 H D-Dimer, Quantitative pCO2 pO2 HCO3 ABG pH ABG Total CO2 ABG O2 Saturation ABG O2 Content ABG Base Excess ABG Hemoglobin ABG Carboxyhemoglobin POC ABG HHb (Measured) ABG Methemoglobin ABG O2 Capacity Hgb O2 Saturation FiO2 Sodium Potassium Chloride Carbon Dioxide Anion Gap BUN Creatinine Est GFR ( Amer) Est GFR (Non-Af Amer) POC Glucose (mg/dL) 72 Random Glucose Calcium Phosphorus Magnesium Total Bilirubin AST ALT Alkaline Phosphatase Total Creatine Kinase CK-MB (CK-2) CK-MB (CK-2) % Troponin I Total Protein Albumin Globulin Albumin/Globulin Ratio Procalcitonin Ur L.pneumophila Ag Mycoplasma pneumon IgM 06/13/18 06/13/18 06/13/18 03:51 05:30 05:30 WBC 10.0 D RBC 4.42 Hgb 12.4 L Hct 37.3 L MCV 84.4 MCH 28.1 MCHC 33.2 RDW 14.7 H Plt Count 146 MPV 11.7 H Gran % 77.8 H Lymph % (Auto) 12.8 L [place] % (Auto) 8.5 H Eos % (Auto) 0.7 L Baso % (Auto) 0.2 Gran # 7.77 H Lymph # (Auto) 1.3 [place] # (Auto) 0.9 H Eos # (Auto) 0.1 Baso # (Auto) 0.02 APTT D-Dimer, Quantitative pCO2 pO2 HCO3 ABG pH ABG Total CO2 ABG O2 Saturation ABG O2 Content ABG Base Excess ABG Hemoglobin ABG Carboxyhemoglobin POC ABG HHb (Measured) ABG Methemoglobin ABG O2 Capacity Hgb O2 Saturation FiO2 Sodium 140 Potassium 3.8 Chloride 110 H Carbon Dioxide 26 Anion Gap 8 L BUN 8 Creatinine 1.1 Est GFR ( Amer) > 60 Est GFR (Non-Af Amer) > 60 POC Glucose (mg/dL) 86 Random Glucose 99 Calcium 8.7 Phosphorus 2.9 Magnesium 2.0 Total Bilirubin 0.8 AST 109 H D ALT 62 H Alkaline Phosphatase 58 Total Creatine Kinase 3714 H CK-MB (CK-2) 11.1 H CK-MB (CK-2) % 0.3 L Troponin I Total Protein 6.3 Albumin 3.5 Globulin 2.9 Albumin/Globulin Ratio 1.2 Procalcitonin Ur L.pneumophila Ag Mycoplasma pneumon IgM 06/13/18 06/13/18 05:48 05:52 WBC RBC Hgb Hct MCV MCH MCHC RDW Plt Count MPV Gran % Lymph % (Auto) [place] % (Auto) Eos % (Auto) Baso % (Auto) Gran # Lymph # (Auto) [place] # (Auto) Eos # (Auto) Baso # (Auto) APTT D-Dimer, Quantitative pCO2 46 H pO2 149.0 H HCO3 26.0 ABG pH 7.36 ABG Total CO2 27.4 ABG O2 Saturation 99.5 H ABG O2 Content 18.0 ABG Base Excess 0.1 ABG Hemoglobin 13.0 ABG Carboxyhemoglobin 1.3 POC ABG HHb (Measured) 0.5 ABG Methemoglobin 1.2 ABG O2 Capacity 18.1 Hgb O2 Saturation 97.0 FiO2 40.0 Sodium Potassium Chloride Carbon Dioxide Anion Gap BUN Creatinine Est GFR ( Amer) Est GFR (Non-Af Amer) POC Glucose (mg/dL) 98 Random Glucose Calcium Phosphorus Magnesium Total Bilirubin AST ALT Alkaline Phosphatase Total Creatine Kinase CK-MB (CK-2) CK-MB (CK-2) % Troponin I Total Protein Albumin Globulin Albumin/Globulin Ratio Procalcitonin Ur L.pneumophila Ag Mycoplasma pneumon IgM Fingerstick Blood Sugar Results: 98 Review of Systems - Review of Systems All systems: reviewed and no additional remarkable complaints except Review of Systems: as per HPI Assessment/Plan - Assessment and Plan (Free Text) Assessment: 28M found unresponsive s/p PCP, EtOH, and Percocet use found to have BL Asp PNA , Severe Sepsis and Rhabdomyolysis admitted to [facility] on 06/11 for Resp Acidosis 2/2 Resp Suppression. Neuro: UDS + PCP, EtOH 23 Neuro checks, Seizure Precuations CIWA: 4 DC precedex this AM C/w Ativan 1 Q6 PRN EtOH withdrawal Cardio: Currently Normotensive, regular rate rhythm Troponin elevation ML 2/2 rhabdo however cannot rule out AMI vs PE DDimer elevated CTA this AM negative for PE Cardiac Echo pending EKG shows no ischemic changes DC Heparin Drip Cardio consulted. F/u recs. Will monitor Maintain MAP>65 Resp: Respiratory acidosis - resolved ABG this AM 7.36/46/149/26/99% Will DC Bipap this AM Tolerating NC well at this point Pneumonia CT chest shows b/l infiltrates. Will c/w vanc/zosyn Maintain sats >96% GI: Tolerating diet well Protonix Renal: RESHMA and Hyperkalemia 2/2 Rhabdomyolysis Cr initially 1.9, CPK elevated 800, w/ Hyperkalemia Cr is now 1.1, CPK rising 3000, K+ Normal Will c/w D5LR at 200/hr Patient is on D5 for hypoglycemia; LR for hyperchloremia (110) Can consider switching back to NS if hypoglycemia resolves w/ diet, and hyperchloremia shows some resolution Good urine output - 3.4L / 24H Urine zaragoza colored; no pink Will inc fluid rate once echo shows no cardiomyopathies Continue to trend CPK Nephro on board. F/u recs. ID: afebrile, leukocytosis has resolved Procal - 15 Blood Cx 2/2 negative @ 24H C/w Vanc and Zosyn as per ID Legionella nd mycoplasma negative F/u HIV Monitor PPX: Protonix, heparin 5000 SC Q12 Patient seen and examined w/ attending Dr. Dara aCstle DO PGY1 - Internal Medicine [employer] - Date & Time Date: 06/13/18 Time: 13:27 <La Diamond - Last Filed: 06/13/18 17:05> CCU Objective - Vital Signs / Intake & Output Vital Signs (Last 4 hours): Vital Signs Pulse Resp Pulse Ox 06/13/18 14:30 82 14 100 06/13/18 14:20 87 35 H 83 L 06/13/18 14:10 66 32 H 98 06/13/18 14:00 65 39 H 100 06/13/18 13:50 95 H 21 97 06/13/18 13:40 81 17 100 06/13/18 13:30 86 22 100 06/13/18 13:20 84 17 99 06/13/18 13:10 90 15 99 Intake and Output (Last 8hrs): Intake & Output 06/13/18 06/13/18 06/13/18 06:59 14:59 22:59 Intake Total 2660 4 Output Total 1200 Balance 1460 4 Intake: IV 2660 4 Left Forearm 2585 Output: Urine 1200 Condom 1200 Other: # Bowel Movements 0 - Medications Active Medications: Active Medications Generic Name Dose Route Start Last Admin Trade Name Freq PRN Reason Stop Dose Admin Diphenhydramine HCl 50 mg 06/13/18 16:12 Benadryl IVP Q4H PRN Agitation Heparin Sodium (Porcine) 5,000 units 06/13/18 22:00 Heparin SC Q12 HECTOR Protocol Vancomycin HCl 750 mg in 250 mls @ 167 mls/hr 06/12/18 10:00 06/13/18 09:42 Vancomycin 750 Mg In Ns IVPB 167 mls/hr Q12 HECTOR Administration Protocol Piperacillin Sod/Tazobactam Sod 100 mls @ 200 mls/hr 06/12/18 18:00 06/13/18 12:32 Zosyn 3.375 In Ns 100ml IVPB 06/20/18 18:01 200 mls/hr Q6 HECTOR Administration Protocol Lactated Ringer's 1,000 mls @ 200 mls/hr 06/13/18 16:45 Lactated Ringer's IV .Q5H HECTOR Lorazepam 1 mg 06/11/18 23:40 06/13/18 09:43 Ativan IVP 1 mg Q6H PRN Administration Symptoms of alcohol withdrawl Protocol Lorazepam 2 mg 06/13/18 16:11 Ativan IVP Q4H PRN Agitation Protocol Pantoprazole Sodium 40 mg 06/12/18 10:00 06/13/18 09:42 Protonix Inj IVP 40 mg DAILY HECTOR Administration Ziprasidone 20 mg 06/13/18 16:15 Geodon Inj IM Q4H PRN Agitation Protocol - Patient Studies Lab Studies: Lab Studies 06/13/18 06/13/18 06/13/18 Range/Units 14:19 13:15 11:55 WBC (4.5-11.0) 10^3/ul RBC (3.5-6.1) 10^6/uL Hgb (14.0-18.0) g/dL Hct (42.0-52.0) % MCV (80.0-105.0) fl MCH (25.0-35.0) pg MCHC (31.0-37.0) g/dl RDW (11.5-14.5) % Plt Count (120.0-450.0) 10^3/uL MPV (7.0-11.0) fl Gran % (50.0-68.0) % Lymph % (Auto) (22.0-35.0) % [place] % (Auto) (1.0-6.0) % Eos % (Auto) (1.5-5.0) % Baso % (Auto) (0.0-3.0) % Gran # (1.4-6.5) Lymph # (Auto) (1.2-3.4) [place] # (Auto) (0.1-0.6) Eos # (Auto) (0.0-0.7) Baso # (Auto) (0.0-2.0) K/mm3 APTT 38.8 H (25.1-36.5) Seconds pCO2 (35-45) mm/Hg pO2 (80-100) mm/Hg HCO3 (21-28) mmol/L ABG pH (7.35-7.45) ABG Total CO2 (22-28) mmol.L ABG O2 Saturation (95-98) % ABG O2 Content (15-23) ML/dl ABG Base Excess (-2.0-3.0) mmol/L ABG Hemoglobin (11.7-17.4) g/dL ABG Carboxyhemoglobin (0.5-1.5) % POC ABG HHb (Measured) (0-5) % ABG Methemoglobin (0.0-3.0) % ABG O2 Capacity (16-24) mL/dl Hgb O2 Saturation (95.0-98.0) % FiO2 % Sodium (132-148) mmol/L Potassium (3.6-5.0) mmol/L Chloride (98-107) mmol/L Carbon Dioxide (21-33) mmol/L Anion Gap (10-20) BUN (7-21) mg/dL Creatinine (0.8-1.5) mg/dl Est GFR ( Amer) Est GFR (Non-Af Amer) POC Glucose (mg/dL) 125 H 101 (65-110) mg/dL Random Glucose (70-110) mg/dL Calcium (8.4-10.5) mg/dL Phosphorus (2.5-4.5) mg/dL Magnesium (1.7-2.2) mg/dL Total Bilirubin (0.2-1.3) mg/dL AST (17-59) U/L ALT (7-56) U/L Alkaline Phosphatase (38-126) U/L Total Creatine Kinase (35-230) U/L CK-MB (CK-2) (0.0-3.6) ng/mL CK-MB (CK-2) % (2.5-3.0) % Troponin I ng/mL Total Protein (5.8-8.3) g/dL Albumin (3.0-4.8) g/dL Globulin gm/dL Albumin/Globulin Ratio (1.1-1.8) Hepatitis A IgM Ab (NEGATIVE) Hep Bs Antigen (NEGATIVE) Hep B Core IgM Ab (NEGATIVE) Hepatitis C Antibody (NEGATIVE) Ur L.pneumophila Ag (NEGATIVE) Mycoplasma pneumon IgM (NEGATIVE) 06/13/18 06/13/18 06/13/18 Range/Units 09:49 08:30 07:58 WBC (4.5-11.0) 10^3/ul RBC (3.5-6.1) 10^6/uL Hgb (14.0-18.0) g/dL Hct (42.0-52.0) % MCV (80.0-105.0) fl MCH (25.0-35.0) pg MCHC (31.0-37.0) g/dl RDW (11.5-14.5) % Plt Count (120.0-450.0) 10^3/uL MPV (7.0-11.0) fl Gran % (50.0-68.0) % Lymph % (Auto) (22.0-35.0) % [place] % (Auto) (1.0-6.0) % Eos % (Auto) (1.5-5.0) % Baso % (Auto) (0.0-3.0) % Gran # (1.4-6.5) Lymph # (Auto) (1.2-3.4) [place] # (Auto) (0.1-0.6) Eos # (Auto) (0.0-0.7) Baso # (Auto) (0.0-2.0) K/mm3 APTT 54.4 H (25.1-36.5) Seconds pCO2 (35-45) mm/Hg pO2 (80-100) mm/Hg HCO3 (21-28) mmol/L ABG pH (7.35-7.45) ABG Total CO2 (22-28) mmol.L ABG O2 Saturation (95-98) % ABG O2 Content (15-23) ML/dl ABG Base Excess (-2.0-3.0) mmol/L ABG Hemoglobin (11.7-17.4) g/dL ABG Carboxyhemoglobin (0.5-1.5) % POC ABG HHb (Measured) (0-5) % ABG Methemoglobin (0.0-3.0) % ABG O2 Capacity (16-24) mL/dl Hgb O2 Saturation (95.0-98.0) % FiO2 % Sodium (132-148) mmol/L Potassium (3.6-5.0) mmol/L Chloride (98-107) mmol/L Carbon Dioxide (21-33) mmol/L Anion Gap (10-20) BUN (7-21) mg/dL Creatinine (0.8-1.5) mg/dl Est GFR ( Amer) Est GFR (Non-Af Amer) POC Glucose (mg/dL) 88 99 (65-110) mg/dL Random Glucose (70-110) mg/dL Calcium (8.4-10.5) mg/dL Phosphorus (2.5-4.5) mg/dL Magnesium (1.7-2.2) mg/dL Total Bilirubin (0.2-1.3) mg/dL AST (17-59) U/L ALT (7-56) U/L Alkaline Phosphatase (38-126) U/L Total Creatine Kinase (35-230) U/L CK-MB (CK-2) (0.0-3.6) ng/mL CK-MB (CK-2) % (2.5-3.0) % Troponin I ng/mL Total Protein (5.8-8.3) g/dL Albumin (3.0-4.8) g/dL Globulin gm/dL Albumin/Globulin Ratio (1.1-1.8) Hepatitis A IgM Ab (NEGATIVE) Hep Bs Antigen (NEGATIVE) Hep B Core IgM Ab (NEGATIVE) Hepatitis C Antibody (NEGATIVE) Ur L.pneumophila Ag (NEGATIVE) Mycoplasma pneumon IgM (NEGATIVE) 06/13/18 06/13/18 06/13/18 Range/Units 05:52 05:48 05:30 WBC (4.5-11.0) 10^3/ul RBC (3.5-6.1) 10^6/uL Hgb (14.0-18.0) g/dL Hct (42.0-52.0) % MCV (80.0-105.0) fl MCH (25.0-35.0) pg MCHC (31.0-37.0) g/dl RDW (11.5-14.5) % Plt Count (120.0-450.0) 10^3/uL MPV (7.0-11.0) fl Gran % (50.0-68.0) % Lymph % (Auto) (22.0-35.0) % [place] % (Auto) (1.0-6.0) % Eos % (Auto) (1.5-5.0) % Baso % (Auto) (0.0-3.0) % Gran # (1.4-6.5) Lymph # (Auto) (1.2-3.4) [place] # (Auto) (0.1-0.6) Eos # (Auto) (0.0-0.7) Baso # (Auto) (0.0-2.0) K/mm3 APTT (25.1-36.5) Seconds pCO2 46 H (35-45) mm/Hg pO2 149.0 H (80-100) mm/Hg HCO3 26.0 (21-28) mmol/L ABG pH 7.36 (7.35-7.45) ABG Total CO2 27.4 (22-28) mmol.L ABG O2 Saturation 99.5 H (95-98) % ABG O2 Content 18.0 (15-23) ML/dl ABG Base Excess 0.1 (-2.0-3.0) mmol/L ABG Hemoglobin 13.0 (11.7-17.4) g/dL ABG Carboxyhemoglobin 1.3 (0.5-1.5) % POC ABG HHb (Measured) 0.5 (0-5) % ABG Methemoglobin 1.2 (0.0-3.0) % ABG O2 Capacity 18.1 (16-24) mL/dl Hgb O2 Saturation 97.0 (95.0-98.0) % FiO2 40.0 % Sodium 140 (132-148) mmol/L Potassium 3.8 (3.6-5.0) mmol/L Chloride 110 H (98-107) mmol/L Carbon Dioxide 26 (21-33) mmol/L Anion Gap 8 L (10-20) BUN 8 (7-21) mg/dL Creatinine 1.1 (0.8-1.5) mg/dl Est GFR ( Amer) > 60 Est GFR (Non-Af Amer) > 60 POC Glucose (mg/dL) 98 (65-110) mg/dL Random Glucose 99 (70-110) mg/dL Calcium 8.7 (8.4-10.5) mg/dL Phosphorus 2.9 (2.5-4.5) mg/dL Magnesium 2.0 (1.7-2.2) mg/dL Total Bilirubin 0.8 (0.2-1.3) mg/dL AST 109 H D (17-59) U/L ALT 62 H (7-56) U/L Alkaline Phosphatase 58 (38-126) U/L Total Creatine Kinase 3714 H (35-230) U/L CK-MB (CK-2) 11.1 H (0.0-3.6) ng/mL CK-MB (CK-2) % 0.3 L (2.5-3.0) % Troponin I ng/mL Total Protein 6.3 (5.8-8.3) g/dL Albumin 3.5 (3.0-4.8) g/dL Globulin 2.9 gm/dL Albumin/Globulin Ratio 1.2 (1.1-1.8) Hepatitis A IgM Ab (NEGATIVE) Hep Bs Antigen (NEGATIVE) Hep B Core IgM Ab (NEGATIVE) Hepatitis C Antibody (NEGATIVE) Ur L.pneumophila Ag (NEGATIVE) Mycoplasma pneumon IgM (NEGATIVE) 06/13/18 06/13/18 06/13/18 Range/Units 05:30 03:51 02:15 WBC 10.0 D (4.5-11.0) 10^3/ul RBC 4.42 (3.5-6.1) 10^6/uL Hgb 12.4 L (14.0-18.0) g/dL Hct 37.3 L (42.0-52.0) % MCV 84.4 (80.0-105.0) fl MCH 28.1 (25.0-35.0) pg MCHC 33.2 (31.0-37.0) g/dl RDW 14.7 H (11.5-14.5) % Plt Count 146 (120.0-450.0) 10^3/uL MPV 11.7 H (7.0-11.0) fl Gran % 77.8 H (50.0-68.0) % Lymph % (Auto) 12.8 L (22.0-35.0) % [place] % (Auto) 8.5 H (1.0-6.0) % Eos % (Auto) 0.7 L (1.5-5.0) % Baso % (Auto) 0.2 (0.0-3.0) % Gran # 7.77 H (1.4-6.5) Lymph # (Auto) 1.3 (1.2-3.4) [place] # (Auto) 0.9 H (0.1-0.6) Eos # (Auto) 0.1 (0.0-0.7) Baso # (Auto) 0.02 (0.0-2.0) K/mm3 APTT 82.3 H (25.1-36.5) Seconds pCO2 (35-45) mm/Hg pO2 (80-100) mm/Hg HCO3 (21-28) mmol/L ABG pH (7.35-7.45) ABG Total CO2 (22-28) mmol.L ABG O2 Saturation (95-98) % ABG O2 Content (15-23) ML/dl ABG Base Excess (-2.0-3.0) mmol/L ABG Hemoglobin (11.7-17.4) g/dL ABG Carboxyhemoglobin (0.5-1.5) % POC ABG HHb (Measured) (0-5) % ABG Methemoglobin (0.0-3.0) % ABG O2 Capacity (16-24) mL/dl Hgb O2 Saturation (95.0-98.0) % FiO2 % Sodium (132-148) mmol/L Potassium (3.6-5.0) mmol/L Chloride (98-107) mmol/L Carbon Dioxide (21-33) mmol/L Anion Gap (10-20) BUN (7-21) mg/dL Creatinine (0.8-1.5) mg/dl Est GFR ( Amer) Est GFR (Non-Af Amer) POC Glucose (mg/dL) 86 (65-110) mg/dL Random Glucose (70-110) mg/dL Calcium (8.4-10.5) mg/dL Phosphorus (2.5-4.5) mg/dL Magnesium (1.7-2.2) mg/dL Total Bilirubin (0.2-1.3) mg/dL AST (17-59) U/L ALT (7-56) U/L Alkaline Phosphatase (38-126) U/L Total Creatine Kinase (35-230) U/L CK-MB (CK-2) (0.0-3.6) ng/mL CK-MB (CK-2) % (2.5-3.0) % Troponin I ng/mL Total Protein (5.8-8.3) g/dL Albumin (3.0-4.8) g/dL Globulin gm/dL Albumin/Globulin Ratio (1.1-1.8) Hepatitis A IgM Ab (NEGATIVE) Hep Bs Antigen (NEGATIVE) Hep B Core IgM Ab (NEGATIVE) Hepatitis C Antibody (NEGATIVE) Ur L.pneumophila Ag (NEGATIVE) Mycoplasma pneumon IgM (NEGATIVE) 06/12/18 06/12/18 06/12/18 Range/Units 23:24 19:30 18:52 WBC (4.5-11.0) 10^3/ul RBC (3.5-6.1) 10^6/uL Hgb (14.0-18.0) g/dL Hct (42.0-52.0) % MCV (80.0-105.0) fl MCH (25.0-35.0) pg MCHC (31.0-37.0) g/dl RDW (11.5-14.5) % Plt Count (120.0-450.0) 10^3/uL MPV (7.0-11.0) fl Gran % (50.0-68.0) % Lymph % (Auto) (22.0-35.0) % [place] % (Auto) (1.0-6.0) % Eos % (Auto) (1.5-5.0) % Baso % (Auto) (0.0-3.0) % Gran # (1.4-6.5) Lymph # (Auto) (1.2-3.4) [place] # (Auto) (0.1-0.6) Eos # (Auto) (0.0-0.7) Baso # (Auto) (0.0-2.0) K/mm3 APTT 84.0 H (25.1-36.5) Seconds pCO2 (35-45) mm/Hg pO2 (80-100) mm/Hg HCO3 (21-28) mmol/L ABG pH (7.35-7.45) ABG Total CO2 (22-28) mmol.L ABG O2 Saturation (95-98) % ABG O2 Content (15-23) ML/dl ABG Base Excess (-2.0-3.0) mmol/L ABG Hemoglobin (11.7-17.4) g/dL ABG Carboxyhemoglobin (0.5-1.5) % POC ABG HHb (Measured) (0-5) % ABG Methemoglobin (0.0-3.0) % ABG O2 Capacity (16-24) mL/dl Hgb O2 Saturation (95.0-98.0) % FiO2 % Sodium (132-148) mmol/L Potassium (3.6-5.0) mmol/L Chloride (98-107) mmol/L Carbon Dioxide (21-33) mmol/L Anion Gap (10-20) BUN (7-21) mg/dL Creatinine (0.8-1.5) mg/dl Est GFR ( Amer) Est GFR (Non-Af Amer) POC Glucose (mg/dL) 72 126 H (65-110) mg/dL Random Glucose (70-110) mg/dL Calcium (8.4-10.5) mg/dL Phosphorus (2.5-4.5) mg/dL Magnesium (1.7-2.2) mg/dL Total Bilirubin (0.2-1.3) mg/dL AST (17-59) U/L ALT (7-56) U/L Alkaline Phosphatase (38-126) U/L Total Creatine Kinase (35-230) U/L CK-MB (CK-2) (0.0-3.6) ng/mL CK-MB (CK-2) % (2.5-3.0) % Troponin I ng/mL Total Protein (5.8-8.3) g/dL Albumin (3.0-4.8) g/dL Globulin gm/dL Albumin/Globulin Ratio (1.1-1.8) Hepatitis A IgM Ab (NEGATIVE) Hep Bs Antigen (NEGATIVE) Hep B Core IgM Ab (NEGATIVE) Hepatitis C Antibody (NEGATIVE) Ur L.pneumophila Ag (NEGATIVE) Mycoplasma pneumon IgM (NEGATIVE) 06/12/18 06/12/18 06/12/18 Range/Units 17:22 17:19 17:19 WBC 13.7 H D (4.5-11.0) 10^3/ul RBC 4.55 (3.5-6.1) 10^6/uL Hgb 12.9 L (14.0-18.0) g/dL Hct 38.9 L (42.0-52.0) % MCV 85.5 (80.0-105.0) fl MCH 28.4 (25.0-35.0) pg MCHC 33.2 (31.0-37.0) g/dl RDW 15.0 H (11.5-14.5) % Plt Count 152 (120.0-450.0) 10^3/uL MPV 11.1 H (7.0-11.0) fl Gran % 77.4 H (50.0-68.0) % Lymph % (Auto) 12.8 L (22.0-35.0) % [place] % (Auto) 9.6 H (1.0-6.0) % Eos % (Auto) 0.1 L (1.5-5.0) % Baso % (Auto) 0.1 (0.0-3.0) % Gran # 10.61 H (1.4-6.5) Lymph # (Auto) 1.8 (1.2-3.4) [place] # (Auto) 1.3 H (0.1-0.6) Eos # (Auto) 0.0 (0.0-0.7) Baso # (Auto) 0.01 (0.0-2.0) K/mm3 APTT (25.1-36.5) Seconds pCO2 (35-45) mm/Hg pO2 (80-100) mm/Hg HCO3 (21-28) mmol/L ABG pH (7.35-7.45) ABG Total CO2 (22-28) mmol.L ABG O2 Saturation (95-98) % ABG O2 Content (15-23) ML/dl ABG Base Excess (-2.0-3.0) mmol/L ABG Hemoglobin (11.7-17.4) g/dL ABG Carboxyhemoglobin (0.5-1.5) % POC ABG HHb (Measured) (0-5) % ABG Methemoglobin (0.0-3.0) % ABG O2 Capacity (16-24) mL/dl Hgb O2 Saturation (95.0-98.0) % FiO2 % Sodium 143 (132-148) mmol/L Potassium 4.5 (3.6-5.0) mmol/L Chloride 110 H (98-107) mmol/L Carbon Dioxide 27 (21-33) mmol/L Anion Gap 10 (10-20) BUN 13 (7-21) mg/dL Creatinine 1.3 (0.8-1.5) mg/dl Est GFR ( Amer) > 60 Est GFR (Non-Af Amer) > 60 POC Glucose (mg/dL) (65-110) mg/dL Random Glucose 37 L* D (70-110) mg/dL Calcium 8.5 (8.4-10.5) mg/dL Phosphorus (2.5-4.5) mg/dL Magnesium (1.7-2.2) mg/dL Total Bilirubin 0.7 (0.2-1.3) mg/dL AST 83 H (17-59) U/L ALT 41 (7-56) U/L Alkaline Phosphatase 63 (38-126) U/L Total Creatine Kinase 1163 H (35-230) U/L CK-MB (CK-2) 15.5 H (0.0-3.6) ng/mL CK-MB (CK-2) % 1.3 L (2.5-3.0) % Troponin I 1.18 H* D ng/mL Total Protein 6.8 (5.8-8.3) g/dL Albumin 3.8 (3.0-4.8) g/dL Globulin 3.0 gm/dL Albumin/Globulin Ratio 1.3 (1.1-1.8) Hepatitis A IgM Ab (NEGATIVE) Hep Bs Antigen (NEGATIVE) Hep B Core IgM Ab (NEGATIVE) Hepatitis C Antibody (NEGATIVE) Ur L.pneumophila Ag (NEGATIVE) Mycoplasma pneumon IgM Negative (NEGATIVE) 06/12/18 06/12/18 Range/Units 16:30 03:00 WBC (4.5-11.0) 10^3/ul RBC (3.5-6.1) 10^6/uL Hgb (14.0-18.0) g/dL Hct (42.0-52.0) % MCV (80.0-105.0) fl MCH (25.0-35.0) pg MCHC (31.0-37.0) g/dl RDW (11.5-14.5) % Plt Count (120.0-450.0) 10^3/uL MPV (7.0-11.0) fl Gran % (50.0-68.0) % Lymph % (Auto) (22.0-35.0) % [place] % (Auto) (1.0-6.0) % Eos % (Auto) (1.5-5.0) % Baso % (Auto) (0.0-3.0) % Gran # (1.4-6.5) Lymph # (Auto) (1.2-3.4) [place] # (Auto) (0.1-0.6) Eos # (Auto) (0.0-0.7) Baso # (Auto) (0.0-2.0) K/mm3 APTT (25.1-36.5) Seconds pCO2 (35-45) mm/Hg pO2 (80-100) mm/Hg HCO3 (21-28) mmol/L ABG pH (7.35-7.45) ABG Total CO2 (22-28) mmol.L ABG O2 Saturation (95-98) % ABG O2 Content (15-23) ML/dl ABG Base Excess (-2.0-3.0) mmol/L ABG Hemoglobin (11.7-17.4) g/dL ABG Carboxyhemoglobin (0.5-1.5) % POC ABG HHb (Measured) (0-5) % ABG Methemoglobin (0.0-3.0) % ABG O2 Capacity (16-24) mL/dl Hgb O2 Saturation (95.0-98.0) % FiO2 % Sodium (132-148) mmol/L Potassium (3.6-5.0) mmol/L Chloride (98-107) mmol/L Carbon Dioxide (21-33) mmol/L Anion Gap (10-20) BUN (7-21) mg/dL Creatinine (0.8-1.5) mg/dl Est GFR ( Amer) Est GFR (Non-Af Amer) POC Glucose (mg/dL) (65-110) mg/dL Random Glucose (70-110) mg/dL Calcium (8.4-10.5) mg/dL Phosphorus (2.5-4.5) mg/dL Magnesium (1.7-2.2) mg/dL Total Bilirubin (0.2-1.3) mg/dL AST (17-59) U/L ALT (7-56) U/L Alkaline Phosphatase (38-126) U/L Total Creatine Kinase (35-230) U/L CK-MB (CK-2) (0.0-3.6) ng/mL CK-MB (CK-2) % (2.5-3.0) % Troponin I ng/mL Total Protein (5.8-8.3) g/dL Albumin (3.0-4.8) g/dL Globulin gm/dL Albumin/Globulin Ratio (1.1-1.8) Hepatitis A IgM Ab Negative (NEGATIVE) Hep Bs Antigen Negative (NEGATIVE) Hep B Core IgM Ab Negative (NEGATIVE) Hepatitis C Antibody Negative (NEGATIVE) Ur L.pneumophila Ag Negative (NEGATIVE) Mycoplasma pneumon IgM (NEGATIVE) Laboratory Results - last 24 hr 06/12/18 06/12/18 06/12/18 03:00 16:30 17:19 WBC 13.7 H D RBC 4.55 Hgb 12.9 L Hct 38.9 L MCV 85.5 MCH 28.4 MCHC 33.2 RDW 15.0 H Plt Count 152 MPV 11.1 H Gran % 77.4 H Lymph % (Auto) 12.8 L [place] % (Auto) 9.6 H Eos % (Auto) 0.1 L Baso % (Auto) 0.1 Gran # 10.61 H Lymph # (Auto) 1.8 [place] # (Auto) 1.3 H Eos # (Auto) 0.0 Baso # (Auto) 0.01 APTT pCO2 pO2 HCO3 ABG pH ABG Total CO2 ABG O2 Saturation ABG O2 Content ABG Base Excess ABG Hemoglobin ABG Carboxyhemoglobin POC ABG HHb (Measured) ABG Methemoglobin ABG O2 Capacity Hgb O2 Saturation FiO2 Sodium Potassium Chloride Carbon Dioxide Anion Gap BUN Creatinine Est GFR ( Amer) Est GFR (Non-Af Amer) POC Glucose (mg/dL) Random Glucose Calcium Phosphorus Magnesium Total Bilirubin AST ALT Alkaline Phosphatase Total Creatine Kinase CK-MB (CK-2) CK-MB (CK-2) % Troponin I Total Protein Albumin Globulin Albumin/Globulin Ratio Hepatitis A IgM Ab Negative Hep Bs Antigen Negative Hep B Core IgM Ab Negative Hepatitis C Antibody Negative Ur L.pneumophila Ag Negative Mycoplasma pneumon IgM 06/12/18 06/12/18 06/12/18 17:19 17:22 18:52 WBC RBC Hgb Hct MCV MCH MCHC RDW Plt Count MPV Gran % Lymph % (Auto) [place] % (Auto) Eos % (Auto) Baso % (Auto) Gran # Lymph # (Auto) [place] # (Auto) Eos # (Auto) Baso # (Auto) APTT pCO2 pO2 HCO3 ABG pH ABG Total CO2 ABG O2 Saturation ABG O2 Content ABG Base Excess ABG Hemoglobin ABG Carboxyhemoglobin POC ABG HHb (Measured) ABG Methemoglobin ABG O2 Capacity Hgb O2 Saturation FiO2 Sodium 143 Potassium 4.5 Chloride 110 H Carbon Dioxide 27 Anion Gap 10 BUN 13 Creatinine 1.3 Est GFR ( Amer) > 60 Est GFR (Non-Af Amer) > 60 POC Glucose (mg/dL) 126 H Random Glucose 37 L* D Calcium 8.5 Phosphorus Magnesium Total Bilirubin 0.7 AST 83 H ALT 41 Alkaline Phosphatase 63 Total Creatine Kinase 1163 H CK-MB (CK-2) 15.5 H CK-MB (CK-2) % 1.3 L Troponin I 1.18 H* D Total Protein 6.8 Albumin 3.8 Globulin 3.0 Albumin/Globulin Ratio 1.3 Hepatitis A IgM Ab Hep Bs Antigen Hep B Core IgM Ab Hepatitis C Antibody Ur L.pneumophila Ag Mycoplasma pneumon IgM Negative 06/12/18 06/12/18 06/13/18 19:30 23:24 02:15 WBC RBC Hgb Hct MCV MCH MCHC RDW Plt Count MPV Gran % Lymph % (Auto) [place] % (Auto) Eos % (Auto) Baso % (Auto) Gran # Lymph # (Auto) [place] # (Auto) Eos # (Auto) Baso # (Auto) APTT 84.0 H 82.3 H pCO2 pO2 HCO3 ABG pH ABG Total CO2 ABG O2 Saturation ABG O2 Content ABG Base Excess ABG Hemoglobin ABG Carboxyhemoglobin POC ABG HHb (Measured) ABG Methemoglobin ABG O2 Capacity Hgb O2 Saturation FiO2 Sodium Potassium Chloride Carbon Dioxide Anion Gap BUN Creatinine Est GFR ( Amer) Est GFR (Non-Af Amer) POC Glucose (mg/dL) 72 Random Glucose Calcium Phosphorus Magnesium Total Bilirubin AST ALT Alkaline Phosphatase Total Creatine Kinase CK-MB (CK-2) CK-MB (CK-2) % Troponin I Total Protein Albumin Globulin Albumin/Globulin Ratio Hepatitis A IgM Ab Hep Bs Antigen Hep B Core IgM Ab Hepatitis C Antibody Ur L.pneumophila Ag Mycoplasma pneumon IgM 06/13/18 06/13/18 06/13/18 03:51 05:30 05:30 WBC 10.0 D RBC 4.42 Hgb 12.4 L Hct 37.3 L MCV 84.4 MCH 28.1 MCHC 33.2 RDW 14.7 H Plt Count 146 MPV 11.7 H Gran % 77.8 H Lymph % (Auto) 12.8 L [place] % (Auto) 8.5 H Eos % (Auto) 0.7 L Baso % (Auto) 0.2 Gran # 7.77 H Lymph # (Auto) 1.3 [place] # (Auto) 0.9 H Eos # (Auto) 0.1 Baso # (Auto) 0.02 APTT pCO2 pO2 HCO3 ABG pH ABG Total CO2 ABG O2 Saturation ABG O2 Content ABG Base Excess ABG Hemoglobin ABG Carboxyhemoglobin POC ABG HHb (Measured) ABG Methemoglobin ABG O2 Capacity Hgb O2 Saturation FiO2 Sodium 140 Potassium 3.8 Chloride 110 H Carbon Dioxide 26 Anion Gap 8 L BUN 8 Creatinine 1.1 Est GFR ( Amer) > 60 Est GFR (Non-Af Amer) > 60 POC Glucose (mg/dL) 86 Random Glucose 99 Calcium 8.7 Phosphorus 2.9 Magnesium 2.0 Total Bilirubin 0.8 AST 109 H D ALT 62 H Alkaline Phosphatase 58 Total Creatine Kinase 3714 H CK-MB (CK-2) 11.1 H CK-MB (CK-2) % 0.3 L Troponin I Total Protein 6.3 Albumin 3.5 Globulin 2.9 Albumin/Globulin Ratio 1.2 Hepatitis A IgM Ab Hep Bs Antigen Hep B Core IgM Ab Hepatitis C Antibody Ur L.pneumophila Ag Mycoplasma pneumon IgM 06/13/18 06/13/18 06/13/18 05:48 05:52 07:58 WBC RBC Hgb Hct MCV MCH MCHC RDW Plt Count MPV Gran % Lymph % (Auto) [place] % (Auto) Eos % (Auto) Baso % (Auto) Gran # Lymph # (Auto) [place] # (Auto) Eos # (Auto) Baso # (Auto) APTT pCO2 46 H pO2 149.0 H HCO3 26.0 ABG pH 7.36 ABG Total CO2 27.4 ABG O2 Saturation 99.5 H ABG O2 Content 18.0 ABG Base Excess 0.1 ABG Hemoglobin 13.0 ABG Carboxyhemoglobin 1.3 POC ABG HHb (Measured) 0.5 ABG Methemoglobin 1.2 ABG O2 Capacity 18.1 Hgb O2 Saturation 97.0 FiO2 40.0 Sodium Potassium Chloride Carbon Dioxide Anion Gap BUN Creatinine Est GFR ( Amer) Est GFR (Non-Af Amer) POC Glucose (mg/dL) 98 99 Random Glucose Calcium Phosphorus Magnesium Total Bilirubin AST ALT Alkaline Phosphatase Total Creatine Kinase CK-MB (CK-2) CK-MB (CK-2) % Troponin I Total Protein Albumin Globulin Albumin/Globulin Ratio Hepatitis A IgM Ab Hep Bs Antigen Hep B Core IgM Ab Hepatitis C Antibody Ur L.pneumophila Ag Mycoplasma pneumon IgM 06/13/18 06/13/18 06/13/18 08:30 09:49 11:55 WBC RBC Hgb Hct MCV MCH MCHC RDW Plt Count MPV Gran % Lymph % (Auto) [place] % (Auto) Eos % (Auto) Baso % (Auto) Gran # Lymph # (Auto) [place] # (Auto) Eos # (Auto) Baso # (Auto) APTT 54.4 H pCO2 pO2 HCO3 ABG pH ABG Total CO2 ABG O2 Saturation ABG O2 Content ABG Base Excess ABG Hemoglobin ABG Carboxyhemoglobin POC ABG HHb (Measured) ABG Methemoglobin ABG O2 Capacity Hgb O2 Saturation FiO2 Sodium Potassium Chloride Carbon Dioxide Anion Gap BUN Creatinine Est GFR ( Amer) Est GFR (Non-Af Amer) POC Glucose (mg/dL) 88 101 Random Glucose Calcium Phosphorus Magnesium Total Bilirubin AST ALT Alkaline Phosphatase Total Creatine Kinase CK-MB (CK-2) CK-MB (CK-2) % Troponin I Total Protein Albumin Globulin Albumin/Globulin Ratio Hepatitis A IgM Ab Hep Bs Antigen Hep B Core IgM Ab Hepatitis C Antibody Ur L.pneumophila Ag Mycoplasma pneumon IgM 06/13/18 06/13/18 13:15 14:19 WBC RBC Hgb Hct MCV MCH MCHC RDW Plt Count MPV Gran % Lymph % (Auto) [place] % (Auto) Eos % (Auto) Baso % (Auto) Gran # Lymph # (Auto) [place] # (Auto) Eos # (Auto) Baso # (Auto) APTT 38.8 H pCO2 pO2 HCO3 ABG pH ABG Total CO2 ABG O2 Saturation ABG O2 Content ABG Base Excess ABG Hemoglobin ABG Carboxyhemoglobin POC ABG HHb (Measured) ABG Methemoglobin ABG O2 Capacity Hgb O2 Saturation FiO2 Sodium Potassium Chloride Carbon Dioxide Anion Gap BUN Creatinine Est GFR ( Amer) Est GFR (Non-Af Amer) POC Glucose (mg/dL) 125 H Random Glucose Calcium Phosphorus Magnesium Total Bilirubin AST ALT Alkaline Phosphatase Total Creatine Kinase CK-MB (CK-2) CK-MB (CK-2) % Troponin I Total Protein Albumin Globulin Albumin/Globulin Ratio Hepatitis A IgM Ab Hep Bs Antigen Hep B Core IgM Ab Hepatitis C Antibody Ur L.pneumophila Ag Mycoplasma pneumon IgM Critical Care Progress Note - Nutrition Nutrition: Nutrition Category Date Time Status Regular Diet [DIET] Diets 06/13/18 Breakfast Ordered Addendum Addendum: 06/13/18 17:05 ICU Attending Addendum: Patient seen and examined. Case reviewed on round with housestaff. Agree with resident note above with the following additions/exceptions: 28M with polysubstance abuse admitted with PCP abuse, etoh, elevated TNI and CK Possible rhabdo but CK is not as high as I would expect TNI trending down CTA neg for PE, d/c hep drip, start hep sq DVT ppx trend ck cont hydration cont abx as per ID for BL PNA possibly aspiration He has been off bipap all day resp status stable ok to transfer with monitor Rest of care as noted above. La Diamond MD Cosmetic Manager
[2018-06-13 09:16] LABS: HEPATITIS B SURFACE AG Negative (NEGATIVE)
[2018-06-13 09:22] LABS: HEPATITIS A IGM NEGATIVE (NEGATIVE); HEPATITIS B CORE AB NEGATIVE (NEGATIVE)
[2018-06-13 09:33] LABS: HEPATITIS C ANTIBODY NEGATIVE (NEGATIVE)
[2018-06-13] MEDS: Vancomycin 750mg 750 MG/250 ML BAG IVPB SCH ×2 (09:42→22:18)
--- NOTE | 2018-06-13 10:25 | CP.PCM.PN ---
Subjective - Date & Time of Evaluation Date of Evaluation: 06/13/18 Time of Evaluation: 10:00 - Subjective Subjective: Patient is sleelpy but easily arousable, no fevers this morning, no SOB at rest , no diarrhea or nausea. Objective - Vital Signs/Intake and Output Vital Signs (last 24 hours): Temp Pulse Resp BP Pulse Ox 97.4 F L 72 21 133/75 100 06/13/18 08:00 06/13/18 08:10 06/13/18 08:10 06/13/18 08:00 06/13/18 08:10 Intake and Output: 06/13/18 06/13/18 06:59 18:59 Intake Total 2741 4 Output Total 1200 Balance 1541 4 - Medications Medications: Current Medications Vancomycin HCl (Vancomycin 750 Mg In Ns) 750 mg in 250 mls @ 167 mls/hr IVPB Q12 HECTOR PRN Reason: Protocol Last Admin: 06/13/18 09:42 Dose: 167 mls/hr Heparin Sodium/Sodium Chloride (Heparin 58308 Units/250ml 1/2 Normal Saline) 25 ,000 units in 250 mls @ 8.709 mls/hr IV .Q24H HECTOR; 12 UNITS/KG/HR PRN Reason: Protocol Last Admin: 06/13/18 05:45 Dose: 10 units/kg/hr, 7.258 mls/hr Dexmedetomidine HCl (Precedex 400mcg/100ml) 400 mcg in 100 mls @ 3.629 mls/hr IV .Q24H PRN; Protocol; 0.2 MCG/KG/HR PRN Reason: Agitation Last Titration: 06/13/18 07:00 Dose: 0.1 mcg/kg/hr, 1.814 mls/hr Lactated Ringer's (Lactated Ringer's) 1,000 mls @ 150 mls/hr IV .Q6H40M HECTOR Last Admin: 06/13/18 05:00 Dose: 150 mls/hr Piperacillin Sod/Tazobactam Sod (Zosyn 3.375 In Ns 100ml) 100 mls @ 200 mls/hr IVPB Q6 HECTOR PRN Reason: Protocol Stop: 06/20/18 18:01 Last Admin: 06/13/18 05:29 Dose: 200 mls/hr Dextrose (Dextrose 5% In Water 1000 Ml) 1,000 mls @ 75 mls/hr IV .[id number] HECTOR Last Admin: 06/13/18 08:15 Dose: 75 mls/hr Lorazepam (Ativan) 1 mg IVP Q6H PRN; Protocol PRN Reason: Symptoms of alcohol withdrawl Last Admin: 06/13/18 09:43 Dose: 1 mg Pantoprazole Sodium (Protonix Inj) 40 mg IVP DAILY [facility] Last Admin: 06/13/18 09:42 Dose: 40 mg - Labs Labs: 06/13/18 05:30 06/13/18 05:30 PT 12.2 SECONDS (9.4-12.5) 06/11/18 19:13 INR 1.07 06/11/18 19:13 APTT 54.4 Seconds (25.1-36.5) H 06/13/18 08:30 - Constitutional Appears: No Acute Distress, Chronically Ill - Head Exam Head Exam: NORMAL INSPECTION - ENT Exam ENT Exam: Mucous Membranes Moist - Neck Exam Neck Exam: absent: Meningismus - Respiratory Exam Respiratory Exam: Decreased Breath Sounds, Rales (scattered) - Cardiovascular Exam Cardiovascular Exam: +S1, +S2 - GI/Abdominal Exam GI & Abdominal Exam: Soft. absent: Tenderness Assessment and Plan - Assessment and Plan (Free Text) Plan: Assessment Severe sepsis S/P acute renal failure due to left upper lobe severe aspiration pneumonia polysubstance abuse alcohol abuse Plan continue Vancomycin and Zosyn day 2 pending blood cx follow up HIV test will continue to monitor clinically
--- NOTE | 2018-06-13 11:08 | CON ---
DATE: 06/13/2018 CARDIOLOGY CONSULTATION HISTORY: The patient is a 28-year-old male, who was found unresponsive. This is after an episode of alcohol binging, PCP usage as well as multiple tablets of Percocet. Narcan resulted in some improvement of his mental status. Currently, the patient is awake in the ICU, but there is mildly elevated troponin. There is no dyspnea. No chest pain. There are no previous cardiac issues. SOCIAL HISTORY: Negative smoker. REVIEW OF SYSTEMS: Fourteen-point review of systems is reviewed in detail. There is no admission to any symptoms at this time. PHYSICAL EXAMINATION: VITAL SIGNS: Blood pressure is 133/75, the heart rate is in the 70s. NECK: Negative JVD. LUNGS: Without rales. HEART: Reveals S1, S2. EXTREMITIES: Without edema. EKG is within normal limits. LABORATORY DATA: Troponin yesterday is 1.18. Serum creatinine is elevated. BUN and creatinine are normal. Hemoglobin is 12.4. IMPRESSION: 1. Status post multiple drug abuse. 2. Altered mental status. 3. Borderline elevated troponins. PLAN: Given these findings, it is likely the troponins are secondary due to marked periods of hypotension. We will obtain an echocardiogram today. The probability of significant coronary artery disease is very low. In addition, we will obtain a CT scan to rule out the remote possibility of a pulmonary embolism as a cause of his elevated troponins. Everton Chan MD
--- NOTE | 2018-06-13 11:24 | CT ---
Date of service: 06/13/2018 PROCEDURE: CT Chest with contrast (Pulmonary Angiogram) HISTORY: elevated troponin, shortness of breath COMPARISON: None available. TECHNIQUE: Axial computed tomography images were obtained of the chest in the pulmonary arterial phase of enhancement. Coronal and sagittal reformatted images were created and reviewed. Intravenous contrast dose: 100 cc of Omni 350 Radiation dose: Total exam DLP = 344 mGy-cm. This CT exam was performed using one or more of the following dose reduction techniques: Automated exposure control, adjustment of the mA and/or kV according to patient size, and/or use of iterative reconstruction technique. FINDINGS: PULMONARY ARTERIES: Unremarkable. No pulmonary embolism. AORTA: No acute findings. No thoracic aortic aneurysm. LUNGS: There is a focal area of consolidation in the superior segment of the left lower lobe and in the superior right upper lobe consistent with pneumonia. PLEURAL SPACES: Unremarkable. No effusion or pneumothorax. HEART: Unremarkable. No cardiomegaly. No significant pericardial effusion. LYMPH NODES: No lymphadenopathy. BONES, CHEST WALL: Unremarkable. No fracture or destructive lesion OTHER FINDINGS: Unremarkable. IMPRESSION: There is a focal area of consolidation in the superior segment of the left lower lobe and in the superior right upper lobe consistent with pneumonia. No evidence of pulmonary embolus
[2018-06-13] MEDS ORDERED: Dextrose 5%/Lactated Ringer's 1,000 ML IV SCH (12:30)
--- NOTE | 2018-06-13 15:04 | CP.PCM.PN ---
Subjective - Date & Time of Evaluation Date of Evaluation: 06/13/18 Time of Evaluation: 15:03 - Subjective Subjective: RENAL Consult for RESHMA 28 yo M w/ hx of drug abuse that was found on responsive at home by girlfriend. He has a reported hx of PCP and tobacco and etoh abuse as per primary team. He is unable to give any history as he is lethargic and hx is from primary team and chart. Girlfriend reported that he had taken percocet and unkonwn amoutn of alcohol and PCP. Cr was elevated and admitted for further evaluation. He is now on bipap for hypercapnea. ROS pt feels better. denies CP/SOB. overnight events noted PMH: drug abuse PSH: non documented Family History: Unknown Social History: + etoh, smoke and drugs all: nkda pe: vs as below gen: nad sclera: anicteric op: clear on bipap neck supple no thyromegaly cv: +s1+s2 no rub lungs: cta abd: soft nt/nd no organomegaly ext: no edema neuro: awake, sleepy intermittently psych: deferred skin: no rash labs and imaging reviewed imp: ARF/ hyperkalemia/altered mental status/ drug abuse /lactic acidosis/ hypercpaneic respiratory failure/rhabdomylosis plan: RESHMA improving continue ivf. monitor uop and I/o continue trend daily cpk d/c gordon at the earliest pt to abstain from drugs/alcohol discused w/ ICU resident Objective - Vital Signs/Intake and Output Vital Signs (last 24 hours): Temp Pulse Resp BP Pulse Ox 97.4 F L 82 14 141/74 100 06/13/18 08:00 06/13/18 14:30 06/13/18 14:30 06/13/18 13:00 06/13/18 14:30 Intake and Output: 06/13/18 06/13/18 06:59 18:59 Intake Total 2741 4 Output Total 1200 Balance 1541 4 - Medications Medications: Current Medications Heparin Sodium (Porcine) (Heparin) 5,000 units SC Q12 HECTOR PRN Reason: Protocol Vancomycin HCl (Vancomycin 750 Mg In Ns) 750 mg in 250 mls @ 167 mls/hr IVPB Q12 HECTOR PRN Reason: Protocol Last Admin: 06/13/18 09:42 Dose: 167 mls/hr Piperacillin Sod/Tazobactam Sod (Zosyn 3.375 In Ns 100ml) 100 mls @ 200 mls/hr IVPB Q6 HECTOR PRN Reason: Protocol Stop: 06/20/18 18:01 Last Admin: 06/13/18 12:32 Dose: 200 mls/hr Dextrose/Lactated Ringer's (Dextrose 5%/Lactated Ringer's) 1,000 mls @ 200 mls/ hr IV .Q5H HECTOR Lorazepam (Ativan) 1 mg IVP Q6H PRN; Protocol PRN Reason: Symptoms of alcohol withdrawl Last Admin: 06/13/18 09:43 Dose: 1 mg Pantoprazole Sodium (Protonix Inj) 40 mg IVP DAILY [facility] Last Admin: 06/13/18 09:42 Dose: 40 mg - Labs Labs: 06/13/18 05:30 06/13/18 05:30 PT 12.2 SECONDS (9.4-12.5) 06/11/18 19:13 INR 1.07 06/11/18 19:13 APTT 38.8 Seconds (25.1-36.5) H 06/13/18 13:15
[2018-06-13] MEDS ORDERED: DiphenhydrAMINE 50 mg/ml Inj IVP PRN (16:12)
--- NOTE | 2018-06-13 19:59 | CARD ---
APPROVED REPORT Date of service: 06/13/2018 EXAM: Two-dimensional and M-mode echocardiogram with Doppler and color Doppler. INDICATION NSTEMI 2D DIMENSIONS Left Atrium (2D)3.3 (1.6-4.0cm)IVSd1.3 (0.7-1.1cm) LVDd4.3 (3.9-5.9cm)PWd1.2 (0.7-1.1cm) LVDs2.8 (2.5-4.0cm)FS (%) 34.7 % LVEF (%)64.2 (>50%) M-Mode DIMENSIONS Aortic Root3.00 (2.2-3.7cm)Aortic Cusp Exc.2.00 (1.5-2.0cm) Aortic Valve AoV Peak Ksrsnrno042.0cm/Eli Peak GR.7mmHg Mitral Valve MV E Sunxlqsz55.2cm/sMV A Xubcxtoq21.4cm/sE/A ratio1.4 TDI Lateral E' Peak V13.80cm/sMedial E' Peak V8.87cm/sE/Lateral E'4.3 E/Medial E'6.7 Tricuspid Valve TR Peak [id number]/sRAP [id number] Peak Gr.24mmHg [id number] LEFT VENTRICLE The left ventricle is normal size. There is borderline concentric left ventricular hypertrophy. The left ventricular function is normal. The left ventricular ejection fraction is within the normal range. There is normal LV segmental wall motion. The left ventricular diastolic function is normal. RIGHT VENTRICLE The right ventricle is normal size. There is normal right ventricular wall thickness. The right ventricular systolic function is normal. ATRIA The left atrium size is normal. The right atrium size is normal. AORTIC VALVE The aortic valve is mildly thickened. No aortic regurgitation is present. There is no aortic valvular stenosis. MITRAL VALVE The mitral valve is mildly thickened. There is no mitral valve regurgitation noted. There is no mitral valve stenosis. TRICUSPID VALVE The tricuspid valve is normal in structure. There is mild tricuspid regurgitation. There is mild pulmonary hypertension. PULMONIC VALVE The pulmonary valve is normal in structure. There is trace pulmonic valvular regurgitation. GREAT VESSELS The aortic root is normal in size. The IVC is normal in size and collapses >50% with inspiration. PERICARDIAL EFFUSION There is no pericardial effusion. <Conclusion> The left ventricle is normal size. There is borderline concentric left ventricular hypertrophy. The left ventricular function is normal. The left ventricular ejection fraction is within the normal range. There is normal LV segmental wall motion. The left ventricular diastolic function is normal. There is mild tricuspid regurgitation. There is mild pulmonary hypertension.
[2018-06-14] MEDS: Piperacillin/Tazobact 3.375 gm 100 ML IVPB SCH ×2 (00:01→05:19)
[2018-06-14 03:52] VITALS: O2SAT 100
[2018-06-14 07:24] LABS: BASO # 0.01 K/mm3 (0.0-2.0); BASO % 0.1 % (0.0-3.0); EOS # 0.2 (0.0-0.7); EOS % 2.2 % (1.5-5.0); GRAN # 4.59 (1.4-6.5); GRAN % 66.7 % (50.0-68.0); HEMOGLOBIN 12.3 g/dL (14.0-18.0); LYMPH # 1.5 (1.2-3.4); LYMPH % 21.1 % (22.0-35.0); MEAN CELL VOLUME 83.3 fl (80.0-105.0); MEAN CORPUSCULAR HEMOGLOBIN 27.7 pg (25.0-35.0); MEAN CORPUSCULAR HGB CONC 33.2 g/dl (31.0-37.0); MONO # 0.7 (0.1-0.6); MONO % 9.9 % (1.0-6.0); RBC 4.44 10^6/uL (3.5-6.1); RED CELL DISTRIBUTION WIDTH 14.3 % (11.5-14.5); WHITE BLOOD COUNT 6.9 10^3/ul (4.5-11.0)
[2018-06-14 07:46] LABS: ALB/GLOB RATIO 1.1 (1.1-1.8); ALBUMIN 3.2 g/dL (3.0-4.8); ALT/SGPT 64 U/L (7-56); AST/SGOT 69 U/L (17-59); BLOOD UREA NITROGEN 7 mg/dL (7-21); CALCIUM 8.6 mg/dL (8.4-10.5); GFR NON-AFRICAN AMERICAN > 60
[2018-06-14] MEDS ORDERED: Magnesium Sulfate 1 gm in D5W 1 GM/100 ML BAG IVPB ONE (07:56)
[2018-06-14 08:17] LABS: CK-MB 2.7 ng/mL (0.0-3.6)
[2018-06-14] MEDS ORDERED: DiphenhydrAMINE 50 mg/ml Inj IM PRN (08:56)
[2018-06-14] MEDS: Vancomycin 750mg 750 MG/250 ML BAG IVPB SCH (09:44)
[2018-06-14] MEDS: Lactated Ringer's 1,000 ML IV SCH (09:45)
--- NOTE | 2018-06-14 11:24 | CP.PCM.PN ---
Subjective - Date & Time of Evaluation Date of Evaluation: 06/14/18 Time of Evaluation: 11:23 - Subjective Subjective: RENAL FOLLOW UP NOTE Consult for RESHMA HPI: 28 yo M w/ hx of drug abuse that was found on responsive at home by girlfriend. He has a reported hx of PCP and tobacco and etoh abuse as per primary team. He is unable to give any history as he is lethargic and hx is from primary team and chart. Girlfriend reported that he had taken percocet and unkonwn amoutn of alcohol and PCP. Cr was elevated and admitted for further evaluation. He is now on bipap for hypercapnea. ROS pt feels better. denies CP/SOB. overnight events noted. wants to go home PMH: drug abuse PSH: non documented Family History: Unknown Social History: + etoh, smoke and drugs all: nkda pe: vs as below gen: nad sclera: anicteric op: clear on bipap neck supple no thyromegaly cv: +s1+s2 no rub lungs: cta abd: soft nt/nd no organomegaly ext: no edema neuro: awake, alert today psych: deferred skin: no rash labs and imaging reviewed imp: ARF/ hyperkalemia/altered mental status/ drug abuse /lactic acidosis/ hypercpaneic respiratory failure/rhabdomylosis plan: RESHMA improving can discontinue ivf. monitor uop and I/o d/c gordon at the earliest pt to abstain from drugs/alcohol pt stable for d/c from renal perspective when planned discussed w/ team Objective - Vital Signs/Intake and Output Vital Signs (last 24 hours): Temp Pulse Resp BP Pulse Ox 98.4 F 66 36 H 126/78 100 06/14/18 04:00 06/14/18 06:26 06/14/18 06:26 06/14/18 06:00 06/14/18 03:40 Intake and Output: 06/14/18 06/14/18 06:59 18:59 Intake Total 600 Output Total 1000 Balance -400 - Medications Medications: Current Medications Diphenhydramine HCl (Benadryl) 50 mg IM Q4H PRN PRN Reason: Agitation Heparin Sodium (Porcine) (Heparin) 5,000 units SC Q12 HECTOR PRN Reason: Protocol Last Admin: 06/14/18 09:45 Dose: 5,000 units Vancomycin HCl (Vancomycin 750 Mg In Ns) 750 mg in 250 mls @ 167 mls/hr IVPB Q12 HECTOR PRN Reason: Protocol Last Admin: 06/14/18 09:44 Dose: 167 mls/hr Piperacillin Sod/Tazobactam Sod (Zosyn 3.375 In Ns 100ml) 100 mls @ 200 mls/hr IVPB Q6 HECTOR PRN Reason: Protocol Stop: 06/20/18 18:01 Last Admin: 06/14/18 05:19 Dose: 200 mls/hr Lactated Ringer's (Lactated Ringer's) 1,000 mls @ 200 mls/hr IV .Q5H HECTOR Last Admin: 06/14/18 09:45 Dose: 200 mls/hr Lorazepam (Ativan) 1 mg IVP Q6H PRN; Protocol PRN Reason: Symptoms of alcohol withdrawl Last Admin: 06/14/18 09:44 Dose: 1 mg Lorazepam (Ativan) 2 mg IM Q4 PRN; Protocol PRN Reason: Agitation Pantoprazole Sodium (Protonix Inj) 40 mg IVP DAILY [facility] Last Admin: 06/14/18 09:44 Dose: 40 mg Ziprasidone (Geodon Inj) 20 mg IM Q4H PRN; Protocol PRN Reason: Agitation - Labs Labs: 06/14/18 07:05 06/14/18 07:05 PT 12.2 SECONDS (9.4-12.5) 06/11/18 19:13 INR 1.07 06/11/18 19:13 APTT 38.8 Seconds (25.1-36.5) H 06/13/18 13:15
[2018-06-14 12:24] VITALS: PULSE 59; RESP 20
[2018-06-14 12:43] VITALS: TEMP 98.2
--- NOTE | 2018-06-14 13:59 | CP.PCM.DIS ---
<Nicole Lim - Last Filed: 06/14/18 16:04> Provider - Provider Date of Admission: 06/11/18 21:03 Attending physician: Angela Maldonado MD Primary care physician: none Consults: nephrology, cardiology, ID, ICU, psychiatry Time Spent in preparation of Discharge (in minutes): 45 Diagnosis - Discharge Diagnosis (1) PCP intoxication Status: Acute Priority: High (2) Alcohol intoxication Status: Acute Priority: High (3) Sepsis Status: Resolved Priority: High (4) Rhabdomyolysis Status: Acute Priority: High (5) RESHMA (acute kidney injury) Status: Resolved Priority: Medium Hospital Course - Lab Results Lab Results: Most Recent Lab Values WBC 6.9 10^3/ul (4.5-11.0) D 06/14/18 07:05 RBC 4.44 10^6/uL (3.5-6.1) 06/14/18 07:05 Hgb 12.3 g/dL (14.0-18.0) L 06/14/18 07:05 Hct 37.0 % (42.0-52.0) L 06/14/18 07:05 MCV 83.3 fl (80.0-105.0) 06/14/18 07:05 MCH 27.7 pg (25.0-35.0) 06/14/18 07:05 MCHC 33.2 g/dl (31.0-37.0) 06/14/18 07:05 RDW 14.3 % (11.5-14.5) 06/14/18 07:05 Plt Count 135 10^3/uL (120.0-450.0) 06/14/18 07:05 MPV 12.0 fl (7.0-11.0) H 06/14/18 07:05 Gran % 66.7 % (50.0-68.0) 06/14/18 07:05 Lymph % (Auto) 21.1 % (22.0-35.0) L 06/14/18 07:05 [place] % (Auto) 9.9 % (1.0-6.0) H 06/14/18 07:05 Eos % (Auto) 2.2 % (1.5-5.0) 06/14/18 07:05 Baso % (Auto) 0.1 % (0.0-3.0) 06/14/18 07:05 Gran # 4.59 (1.4-6.5) 06/14/18 07:05 Lymph # (Auto) 1.5 (1.2-3.4) 06/14/18 07:05 [place] # (Auto) 0.7 (0.1-0.6) H 06/14/18 07:05 Eos # (Auto) 0.2 (0.0-0.7) 06/14/18 07:05 Baso # (Auto) 0.01 K/mm3 (0.0-2.0) 06/14/18 07:05 Neutrophils % (Manual) 81 % (50.0-70.0) H 06/11/18 19:13 Band Neutrophils % 4 % (0-2) H 06/11/18 19:13 Lymphocytes % (Manual) 8 % (22.0-35.0) L 06/11/18 19:13 Atypical Lymphs % 1 % (0.0-0.0) H 06/11/18 19:13 Monocytes % (Manual) 2 % (1.0-6.0) 06/11/18 19:13 Metamyelocytes % 4 % 06/11/18 19:13 Platelet Evaluation Normal (NORMAL) 06/11/18 19:13 PT 12.2 SECONDS (9.4-12.5) 06/11/18 19:13 INR 1.07 06/11/18 19:13 APTT 38.8 Seconds (25.1-36.5) H 06/13/18 13:15 D-Dimer, Quantitative 923 ng/mlDDU (0-243) H 06/12/18 14:59 pCO2 46 mm/Hg (35-45) H 06/13/18 05:48 pO2 149.0 mm/Hg (80-100) H 06/13/18 05:48 HCO3 26.0 mmol/L (21-28) 06/13/18 05:48 ABG pH 7.36 (7.35-7.45) 06/13/18 05:48 ABG Total CO2 27.4 mmol.L (22-28) 06/13/18 05:48 ABG O2 Saturation 99.5 % (95-98) H 06/13/18 05:48 ABG O2 Content 18.0 ML/dl (15-23) 06/13/18 05:48 ABG Base Excess 0.1 mmol/L (-2.0-3.0) 06/13/18 05:48 ABG Hemoglobin 13.0 g/dL (11.7-17.4) 06/13/18 05:48 ABG Carboxyhemoglobin 1.3 % (0.5-1.5) 06/13/18 05:48 POC ABG HHb (Measured) 0.5 % (0-5) 06/13/18 05:48 ABG Methemoglobin 1.2 % (0.0-3.0) 06/13/18 05:48 ABG O2 Capacity 18.1 mL/dl (16-24) 06/13/18 05:48 ABG Potassium 4.0 mmol/L (3.6-5.2) 06/12/18 07:53 VBG pH 7.22 (7.32-7.43) L 06/12/18 00:10 VBG pCO2 59.0 (40-60) 06/12/18 00:10 VBG HCO3 24.1 mmol/l (21-28) 06/12/18 00:10 VBG Total CO2 25.9 mmol.L (22-28) 06/12/18 00:10 VBG O2 Sat (Calc) 91.6 % (40-65) H 06/12/18 00:10 VBG Base Excess -4.5 mmol/L (0.0-2.0) L 06/12/18 00:10 VBG Potassium 4.6 mmol/L (3.6-5.2) 06/12/18 00:10 Hgb O2 Saturation 97.0 % (95.0-98.0) 06/13/18 05:48 Sodium 139.0 mmol/L (132-148) 06/12/18 07:53 Chloride 109.0 mmol/L (98-107) H 06/12/18 07:53 Glucose 98 mg/dl (75-110) 06/12/18 07:53 Lactate 0.8 mmol/L (0.7-2.1) 06/12/18 07:53 FiO2 40.0 % 06/13/18 05:48 Sodium 138 mmol/L (132-148) 06/14/18 07:05 Potassium 3.6 mmol/L (3.6-5.0) 06/14/18 07:05 Chloride 105 mmol/L (98-107) 06/14/18 07:05 Carbon Dioxide 30 mmol/L (21-33) 06/14/18 07:05 Anion Gap 7 (10-20) L 06/14/18 07:05 BUN 7 mg/dL (7-21) 06/14/18 07:05 Creatinine 0.9 mg/dl (0.8-1.5) 06/14/18 07:05 Est GFR ( Amer) > 60 06/14/18 07:05 Est GFR (Non-Af Amer) > 60 06/14/18 07:05 POC Glucose (mg/dL) 125 mg/dL (65-110) H 06/13/18 14:19 Random Glucose 107 mg/dL (70-110) 06/14/18 07:05 Lactic Acid 4.3 mmol/L (0.7-2.1) H* 06/11/18 20:15 Calcium 8.6 mg/dL (8.4-10.5) 06/14/18 07:05 Phosphorus 2.8 mg/dL (2.5-4.5) 06/14/18 07:05 Magnesium 1.7 mg/dL (1.7-2.2) 06/14/18 07:05 Total Bilirubin 1.2 mg/dL (0.2-1.3) 06/14/18 07:05 AST 69 U/L (17-59) H D 06/14/18 07:05 ALT 64 U/L (7-56) H 06/14/18 07:05 Alkaline Phosphatase 49 U/L (38-126) 06/14/18 07:05 Lactate Dehydrogenase 942 U/L (333-699) H 06/11/18 19:13 Total Creatine Kinase 2342 U/L (35-230) H 06/14/18 07:05 CK-MB (CK-2) 2.7 ng/mL (0.0-3.6) 06/14/18 07:05 CK-MB (CK-2) % 0.3 % (2.5-3.0) L 06/13/18 05:30 Troponin I 1.18 ng/mL H* D 06/12/18 17:19 Total Protein 6.1 g/dL (5.8-8.3) 06/14/18 07:05 Albumin 3.2 g/dL (3.0-4.8) 06/14/18 07:05 Globulin 2.9 gm/dL 06/14/18 07:05 Albumin/Globulin Ratio 1.1 (1.1-1.8) 06/14/18 07:05 Procalcitonin 15.04 NG/ML (0.19-0.49) H 06/12/18 03:00 Arterial Blood Potassium 4.0 mmol/L (3.6-5.2) 06/12/18 07:53 Venous Blood Potassium 4.6 mmol/L (3.6-5.2) 06/12/18 00:10 Urine Color Yellow (YELLOW) 06/11/18 20:15 Urine Appearance Clear (CLEAR) 06/11/18 20:15 Urine pH 6.0 (4.7-8.0) 06/11/18 20:15 Ur Specific [place] 1.025 (1.005-1.035) 06/11/18 20:15 Urine Protein 30 mg/dL (<30 mg/dL) H 06/11/18 20:15 Urine Glucose (UA) Negative mg/dL (NEGATIVE) 06/11/18 20:15 Urine Ketones Negative mg/dL (NEGATIVE) 06/11/18 20:15 Urine Blood Trace-intact (NEGATIVE) H 06/11/18 20:15 Urine Nitrate Negative (NEGATIVE) 06/11/18 20:15 Urine Bilirubin Negative (NEGATIVE) 06/11/18 20:15 Urine Urobilinogen 0.2 E.U./dL (<1 E.U./dL) 06/11/18 20:15 Ur Leukocyte Esterase Negative Darryl/uL (NEGATIVE) 06/11/18 20:15 Urine RBC 0 - 2 /hpf (0-2) 06/11/18 20:15 Urine WBC Negative /hpf (0-6) 06/11/18 20:15 Ur Epithelial Cells None /hpf (0-5) 06/11/18 20:15 Urine Bacteria Neg (NEG) 06/11/18 20:15 Salicylates < 1 mg/dL (2.0-20.0) L 06/11/18 19:13 Urine Opiates Screen Negative (NEGATIVE) 06/11/18 20:15 Urine Methadone Screen Negative (NEGATIVE) 06/11/18 20:15 Acetaminophen < 10.0 ug/ml (10.0-20.0) L 06/11/18 19:13 Ur Barbiturates Screen Negative (NEGATIVE) 06/11/18 20:15 Ur Phencyclidine Scrn Positive (NEGATIVE) H 06/11/18 20:15 Ur Amphetamines Screen Negative (NEGATIVE) 06/11/18 20:15 U Benzodiazepines Scrn Negative (NEGATIVE) 06/11/18 20:15 U Oth Cocaine Metabols Negative (NEGATIVE) 06/11/18 20:15 U Cannabinoids Screen Negative (NEGATIVE) 06/11/18 20:15 Alcohol, Quantitative 23 mg/dL (0-10) H 06/11/18 19:13 Hepatitis A IgM Ab Negative (NEGATIVE) 06/12/18 03:00 Hep Bs Antigen Negative (NEGATIVE) 06/12/18 03:00 Hep B Core IgM Ab Negative (NEGATIVE) 06/12/18 03:00 Hepatitis C Antibody Negative (NEGATIVE) 06/12/18 03:00 HIV 1&2 Ag/Ab, 4th Gen Nonreactive (Nonreactive) 06/12/18 03:00 Ur L.pneumophila Ag Negative (NEGATIVE) 06/12/18 16:30 Mycoplasma pneumon IgM Negative (NEGATIVE) 06/12/18 17:22 - Hospital Course Hospital Course: Jose Elias Acharya is a 28 year old male with a past medical history significant for PCP, tobacco and alcohol abuse who presented after he was found unresponsive in his home by his significant other. Patient is neither alert or oriented and HPI information was obtained from chart review and patients significant other. She reports that she found the patient unresponsive at his home. She notes that he took three tabs of percocet, an unknown amount of alcohol and an unknown amount of PCP. The approximate time of this is unknown at this time. Further HPI and ROS are unobtainable at this time. Of note, in the ED patient was found to be in sepsis with a leukocytosis of 37.7 , tachycardia to 118 beats/min and a lactic acidosis of 4.3. He was given one dose of IV Acyclovir, IV Vancomycin and IV Zosyn. He was also found to have an elevated troponin of 0.73. Patient was sent for V/Q scan but could not complete this as he was unable to remain without motion during the study. He was found to be positive for PCP and to have an alcohol level of 23. 06/11/2018: patient on Precedex and BiPap CXR: No active disease. Head CT: negative. CT chest/A/P: Hazy interstitial infiltrate in the right upper lobe and superior segment of the left lower lobe. Possible pneumonia. Bedside echo: no right ventricular strain ABG- respiratory acidosis RESHMA 06/12/2018: patient weaned off Precedex and BiPap ABG normalized Patient no longer agitated EKG: NSR. EKG 2: Sinus tachycardia. Right atrial enlargement. CTA: There is a focal area of consolidation in the superior segment of the left lower lobe and in the superior right upper lobe consistent with pneumonia. No evidence of pulmonary embolus. RESHMA resolved. 06/13/2018: Patient alert and oriented x3 Echo: There is borderline concentric left ventricular hypertrophy. Left ventricular function is normal and ejection fraction is within the normal range. There is mild tricuspid regurgitation and mild pulmonary hypertension. Cardio consulted: It is likely the troponins are secondary due to marked periods of hypotension. Echo will be obtained. The probability of significant coronary artery disease is very low. CT scan will also be obtained to rule out the possibility of a pulmonary embolism as a cause of his elevated troponins. 06/14/18: CPK downtrending Leukocytosis resolved Troponin downtrending Patient decided to leave AMA. Benefits of further hospitalization and risks of leaving were thoroughly explained. Patient acknowledged understanding and did not have any questions. He was given a prescription for Levofloxacin 500 mg PO daily x5 days. Patient's father came to hospital to pick him up. Discharge Exam - Head Exam Head Exam: ATRAUMATIC, NORMAL INSPECTION, NORMOCEPHALIC - Eye Exam Eye Exam: EOMI, Normal appearance, PERRL - ENT Exam ENT Exam: Mucous Membranes Moist, Normal Exam - Neck Exam Neck exam: Normal Inspection - Respiratory Exam Respiratory Exam: Clear to PA & Lateral, UNREMARKABLE - Cardiovascular Exam Cardiovascular Exam: +S1, +S2 - GI/Abdominal Exam GI & Abdominal Exam: Normal Bowel Sounds, Soft, Unremarkable - Rectal Exam Rectal Exam: Deferred - Extremities Exam Extremities exam: normal inspection, pedal pulses present - Back Exam Back exam: NORMAL INSPECTION - Neurological Exam Neurological exam: Alert, CN II-XII Intact, Normal Gait, Oriented x3 - Psychiatric Exam Psychiatric exam: Flat Affect - Skin Skin Exam: Dry, Intact, Normal Color, Warm Discharge Plan - Follow Up Plan Condition: STABLE Disposition: AGAINST MEDICAL ADVICE Patient education suggested?: Yes <Angela Maldonado - Last Filed: 06/15/18 16:17> Provider - Provider Date of Admission: 06/11/18 21:03 Attending physician: Angela Maldonado MD Hospital Course - Lab Results Lab Results: Micro Results 06/11/18 23:46 Naris MRSA Culture (Admit) - Final MRSA NOT DETECTED Most Recent Lab Values WBC 6.9 10^3/ul (4.5-11.0) D 06/14/18 07:05 RBC 4.44 10^6/uL (3.5-6.1) 06/14/18 07:05 Hgb 12.3 g/dL (14.0-18.0) L 06/14/18 07:05 Hct 37.0 % (42.0-52.0) L 06/14/18 07:05 MCV 83.3 fl (80.0-105.0) 06/14/18 07:05 MCH 27.7 pg (25.0-35.0) 06/14/18 07:05 MCHC 33.2 g/dl (31.0-37.0) 06/14/18 07:05 RDW 14.3 % (11.5-14.5) 06/14/18 07:05 Plt Count 135 10^3/uL (120.0-450.0) 06/14/18 07:05 MPV 12.0 fl (7.0-11.0) H 06/14/18 07:05 Gran % 66.7 % (50.0-68.0) 06/14/18 07:05 Lymph % (Auto) 21.1 % (22.0-35.0) L 06/14/18 07:05 [place] % (Auto) 9.9 % (1.0-6.0) H 06/14/18 07:05 Eos % (Auto) 2.2 % (1.5-5.0) 06/14/18 07:05 Baso % (Auto) 0.1 % (0.0-3.0) 06/14/18 07:05 Gran # 4.59 (1.4-6.5) 06/14/18 07:05 Lymph # (Auto) 1.5 (1.2-3.4) 06/14/18 07:05 [place] # (Auto) 0.7 (0.1-0.6) H 06/14/18 07:05 Eos # (Auto) 0.2 (0.0-0.7) 06/14/18 07:05 Baso # (Auto) 0.01 K/mm3 (0.0-2.0) 06/14/18 07:05 Neutrophils % (Manual) 81 % (50.0-70.0) H 06/11/18 19:13 Band Neutrophils % 4 % (0-2) H 06/11/18 19:13 Lymphocytes % (Manual) 8 % (22.0-35.0) L 06/11/18 19:13 Atypical Lymphs % 1 % (0.0-0.0) H 06/11/18 19:13 Monocytes % (Manual) 2 % (1.0-6.0) 06/11/18 19:13 Metamyelocytes % 4 % 06/11/18 19:13 Platelet Evaluation Normal (NORMAL) 06/11/18 19:13 PT 12.2 SECONDS (9.4-12.5) 06/11/18 19:13 INR 1.07 06/11/18 19:13 APTT 38.8 Seconds (25.1-36.5) H 06/13/18 13:15 D-Dimer, Quantitative 923 ng/mlDDU (0-243) H 06/12/18 14:59 pCO2 46 mm/Hg (35-45) H 06/13/18 05:48 pO2 149.0 mm/Hg (80-100) H 06/13/18 05:48 HCO3 26.0 mmol/L (21-28) 06/13/18 05:48 ABG pH 7.36 (7.35-7.45) 06/13/18 05:48 ABG Total CO2 27.4 mmol.L (22-28) 06/13/18 05:48 ABG O2 Saturation 99.5 % (95-98) H 06/13/18 05:48 ABG O2 Content 18.0 ML/dl (15-23) 06/13/18 05:48 ABG Base Excess 0.1 mmol/L (-2.0-3.0) 06/13/18 05:48 ABG Hemoglobin 13.0 g/dL (11.7-17.4) 06/13/18 05:48 ABG Carboxyhemoglobin 1.3 % (0.5-1.5) 06/13/18 05:48 POC ABG HHb (Measured) 0.5 % (0-5) 06/13/18 05:48 ABG Methemoglobin 1.2 % (0.0-3.0) 06/13/18 05:48 ABG O2 Capacity 18.1 mL/dl (16-24) 06/13/18 05:48 ABG Potassium 4.0 mmol/L (3.6-5.2) 06/12/18 07:53 VBG pH 7.22 (7.32-7.43) L 06/12/18 00:10 VBG pCO2 59.0 (40-60) 06/12/18 00:10 VBG HCO3 24.1 mmol/l (21-28) 06/12/18 00:10 VBG Total CO2 25.9 mmol.L (22-28) 06/12/18 00:10 VBG O2 Sat (Calc) 91.6 % (40-65) H 06/12/18 00:10 VBG Base Excess -4.5 mmol/L (0.0-2.0) L 06/12/18 00:10 VBG Potassium 4.6 mmol/L (3.6-5.2) 06/12/18 00:10 Hgb O2 Saturation 97.0 % (95.0-98.0) 06/13/18 05:48 Sodium 139.0 mmol/L (132-148) 06/12/18 07:53 Chloride 109.0 mmol/L (98-107) H 06/12/18 07:53 Glucose 98 mg/dl (75-110) 06/12/18 07:53 Lactate 0.8 mmol/L (0.7-2.1) 06/12/18 07:53 FiO2 40.0 % 06/13/18 05:48 Sodium 138 mmol/L (132-148) 06/14/18 07:05 Potassium 3.6 mmol/L (3.6-5.0) 06/14/18 07:05 Chloride 105 mmol/L (98-107) 06/14/18 07:05 Carbon Dioxide 30 mmol/L (21-33) 06/14/18 07:05 Anion Gap 7 (10-20) L 06/14/18 07:05 BUN 7 mg/dL (7-21) 06/14/18 07:05 Creatinine 0.9 mg/dl (0.8-1.5) 06/14/18 07:05 Est GFR ( Amer) > 60 06/14/18 07:05 Est GFR (Non-Af Amer) > 60 06/14/18 07:05 POC Glucose (mg/dL) 125 mg/dL (65-110) H 06/13/18 14:19 Random Glucose 107 mg/dL (70-110) 06/14/18 07:05 Lactic Acid 4.3 mmol/L (0.7-2.1) H* 06/11/18 20:15 Calcium 8.6 mg/dL (8.4-10.5) 06/14/18 07:05 Phosphorus 2.8 mg/dL (2.5-4.5) 06/14/18 07:05 Magnesium 1.7 mg/dL (1.7-2.2) 06/14/18 07:05 Total Bilirubin 1.2 mg/dL (0.2-1.3) 06/14/18 07:05 AST 69 U/L (17-59) H D 06/14/18 07:05 ALT 64 U/L (7-56) H 06/14/18 07:05 Alkaline Phosphatase 49 U/L (38-126) 06/14/18 07:05 Lactate Dehydrogenase 942 U/L (333-699) H 06/11/18 19:13 Total Creatine Kinase 2342 U/L (35-230) H 06/14/18 07:05 CK-MB (CK-2) 2.7 ng/mL (0.0-3.6) 06/14/18 07:05 CK-MB (CK-2) % 0.3 % (2.5-3.0) L 06/13/18 05:30 Troponin I 1.18 ng/mL H* D 06/12/18 17:19 Total Protein 6.1 g/dL (5.8-8.3) 06/14/18 07:05 Albumin 3.2 g/dL (3.0-4.8) 06/14/18 07:05 Globulin 2.9 gm/dL 06/14/18 07:05 Albumin/Globulin Ratio 1.1 (1.1-1.8) 06/14/18 07:05 Procalcitonin 4.48 NG/ML (0.19-0.49) H 06/14/18 06:00 Arterial Blood Potassium 4.0 mmol/L (3.6-5.2) 06/12/18 07:53 Venous Blood Potassium 4.6 mmol/L (3.6-5.2) 06/12/18 00:10 Urine Color Yellow (YELLOW) 06/11/18 20:15 Urine Appearance Clear (CLEAR) 06/11/18 20:15 Urine pH 6.0 (4.7-8.0) 06/11/18 20:15 Ur Specific [place] 1.025 (1.005-1.035) 06/11/18 20:15 Urine Protein 30 mg/dL (<30 mg/dL) H 06/11/18 20:15 Urine Glucose (UA) Negative mg/dL (NEGATIVE) 06/11/18 20:15 Urine Ketones Negative mg/dL (NEGATIVE) 06/11/18 20:15 Urine Blood Trace-intact (NEGATIVE) H 06/11/18 20:15 Urine Nitrate Negative (NEGATIVE) 06/11/18 20:15 Urine Bilirubin Negative (NEGATIVE) 06/11/18 20:15 Urine Urobilinogen 0.2 E.U./dL (<1 E.U./dL) 06/11/18 20:15 Ur Leukocyte Esterase Negative Darryl/uL (NEGATIVE) 06/11/18 20:15 Urine RBC 0 - 2 /hpf (0-2) 06/11/18 20:15 Urine WBC Negative /hpf (0-6) 06/11/18 20:15 Ur Epithelial Cells None /hpf (0-5) 06/11/18 20:15 Urine Bacteria Neg (NEG) 06/11/18 20:15 Salicylates < 1 mg/dL (2.0-20.0) L 09/15/18 19:13 Urine Opiates Screen Negative (NEGATIVE) 06/11/18 20:15 Urine Methadone Screen Negative (NEGATIVE) 06/11/18 20:15 Acetaminophen < 10.0 ug/ml (10.0-20.0) L 06/11/18 19:13 Ur Barbiturates Screen Negative (NEGATIVE) 06/11/18 20:15 Ur Phencyclidine Scrn Positive (NEGATIVE) H 06/11/18 20:15 Ur Amphetamines Screen Negative (NEGATIVE) 06/11/18 20:15 U Benzodiazepines Scrn Negative (NEGATIVE) 06/11/18 20:15 U Oth Cocaine Metabols Negative (NEGATIVE) 06/11/18 20:15 U Cannabinoids Screen Negative (NEGATIVE) 06/11/18 20:15 Alcohol, Quantitative 23 mg/dL (0-10) H 06/11/18 19:13 Hepatitis A IgM Ab Negative (NEGATIVE) 06/12/18 03:00 Hep Bs Antigen Negative (NEGATIVE) 06/12/18 03:00 Hep B Core IgM Ab Negative (NEGATIVE) 06/12/18 03:00 Hepatitis C Antibody Negative (NEGATIVE) 06/12/18 03:00 HIV 1&2 Ag/Ab, 4th Gen Nonreactive (Nonreactive) 06/12/18 03:00 Ur L.pneumophila Ag Negative (NEGATIVE) 06/12/18 16:30 Mycoplasma pneumon IgM Negative (NEGATIVE) 06/12/18 17:22 Attending/Attestation - Attestation I have personally seen and examined this patient.: Yes I have fully participated in the care of the patient.: Yes I have reviewed all pertinent clinical information, including history, physical exam and plan: Yes Notes (Text): 06/15/18 16:16 Attending note; Patient seen and examined with resident in ICU. Patient is alert and awake. Denies any fevers, chills. Tolerating diet well. Ambulating fine. Patient is a 28 year old male with a history significant for PCP, tobacco, and alcohol abuse who presented after he was found unresponsive in his home by his significant other. Patient was found to be hypotensive and lethargic. Patient was initially placed on BiPAP. Currently on room air. Not in any acute distress. Denies any chest pain or cough. Denies any abdominal pain. Urine output is adequate. Patient has right upper lobe aspiration pneumonia with leukocytosis. Currently on IV vancomycin and Zosyn. Patient is currently afebrile. Acute renal failure; secondary to episodes of hypotension. Resolved. Elevated troponin; secondary to hemodynamic changes. Cardiology evaluation appreciated. Patient has normal ejection fraction. Complete drug abuse cessation is strongly advised. Smoking cessation is strongly advised. Complete alcohol cessation is strongly advised. Patient is not interested in drug rehabilitation. Psychiatric evaluation appreciated. Case discussed with patient's family in detail. Patient signed AGAINST MEDICAL ADVICE. Patient will follow-up with PMD of choice upon discharge. Family is aware of patient's decision. Patient is currently alert and awake and competent enough to make decisions.
[2018-06-14 14:15] VITALS: BP 116/76
--- NOTE | 2018-06-14 14:56 | PN ---
DATE: 06/14/2018 CARDIOLOGY FOLLOWUP SUBJECTIVE: The patient is awake in bed. OBJECTIVE: VITAL SIGNS: Blood pressure is 116/76, the heart rate is in the 60s. NECK: Negative JVD. LUNGS: Without rales. HEART: Reveal S1, S2. EXTREMITIES: Without edema. DATA: Hemoglobin is 12.3. His total CPK is decreasing. Echocardiogram performed yesterday reveals good LV function. CT scan the chest reveals no pulmonary embolism. IMPRESSION: 1. Status post drug overdose. 2. Elevated troponin likely due to period of hypotension. There is no evidence for left ventricular dysfunction. Given these findings, the patient's treatment needs to be drug counseling with a drug program. However, the patient is not interested in hearing anymore. He signed out against medical advice. Given the patient appears to be competent ____ he is now leaving the hospital against medical advice. Everton Chan MD
--- NOTE | 2018-06-14 16:13 | PN ---
DATE: 06/14/2018 SUBJECTIVE: The patient is seen in bed, no acute distress. Nontoxic. Awake and alert, doing well. He was seen early this morning in the ICU. PHYSICAL EXAMINATION: VITAL SIGNS: Temperature of 98, blood pressure is 116/70, respiratory rate of 18. HEENT: Examination of HEENT is unremarkable. NECK: Supple. LUNGS: Have decreased breath sounds. HEART: Normal S1, S2. ABDOMEN: Soft and nontender. LABORATORY DATA: Laboratory examination reveals a white count of 6.9, hemoglobin of 12. Chemistries are noted. CK of . Procalcitonin 15. Urinalysis is noted. Serology is reviewed with HIV negative, urine Legionella antigen negative, blood cultures negative, nares MRSA screen is negative, urine cultures are negative. ASSESSMENT AND PLAN: A 22-year-old male with severe sepsis, status post acute renal failure, left upper lobe severe aspiration pneumonia, polysubstance abuse, alcohol abuse, on vancomycin and Zosyn. Cultures negative. Complete a short course of antibiotics. We may discontinue the vancomycin. Arun Kapadia MD
--- NOTE | 2018-06-14 16:50 | CON ---
DATE: 06/14/2018 HISTORY OF PRESENT ILLNESS: In short, the patient is a 28-year-old male with not known previous psychiatric history. The patient has history of polysubstance abuse and dependence. The patient was admitted to CCU in septic stage. The patient was on antibiotics. The patient was found to have severe aspiration pneumonia. Yesterday, the patient had agitated stage. Code kiley was called. Psych consult was called for evaluation of history of polysubstance abuse and dependence and also possible depression. The patient was seen and examined, discussed with the primary team, Dr. Maldonado as well as nursing staff. The patient presented to be alert. The patient knows that he is in [facility], but the patient was not aware what is the day today. The patient reported that he was not feeling well and he asked his girlfriend to called 911 because "I was not feeling well." The patient did not have an answer for the question about the fact that the patient was found unresponsive in his house. The patient reported that he does not feel depressed. The patient is aware that he has problems with drugs. The patient reports that his plan is to stay sober because he does not want to have the similar symptoms in the future. The patient was not aware that he was diagnosed with pneumonia. This chief underwriter educated about findings. As per medical team, the patient's father reported that the patient has long history of polysubstance abuse and dependence. The patient never verbalized thoughts of killing himself and such presentation is quite often for the patient. The patient adamantly denied that he wanted to harm himself prior to coming to the hospital. The patient denied being depressed now. The patient denied hearing voices, denied seeing things. The patient adamantly denied thoughts of harming himself or others at this point. Vital signs seems to be stable. Pulse is 59, blood pressure 116/76, respirations 20. Medications reviewed. The patient was on vancomycin, Zosyn and Ativan as well as heparin, Benadryl. Labs reviewed. Leukocytosis is better. Hemoglobin and hematocrit 12.3 and 37. Total creatine kinase is 2342. AST and ALT are 69 and 64. Toxicology was positive for PCP and alcohol level was 23. MENTAL STATUS EXAMINATION: The patient presented to be alert and oriented. Somewhat pleasant. Mood described as, I feel fine, I want to go home. Affect was constricted. Thought process concrete. Thought content, the patient denied visual, auditory or tactile hallucinations. Denied paranoid ideation. The patient does not present to be psychotic. The patient adamantly denied thoughts of harming himself or others. Denied intents or plan. Insight and judgment seems to be improving. Impulses are well controlled as of now. IMPRESSION: Polysubstance abuse, delirium due to polysubstance abuse and alcohol abuse. The patient most likely was in delirium stage, which is resolving. PLAN: This chief underwriter educated the patient about providers as well as micro clinics as well as dangerousness of addiction to PCP as well as alcohol. The patient verbalized understanding, but the patient still has limited insight. This chief underwriter offered the patient inpatient rehab. The patient declined that offer. The patient denied being depressed. Denied thoughts of harming himself or others. The patient pose no imminent danger to self or others. Road Grader Operator need to be involved in order to give information for inpatient rehabs about [facility]. Meanwhile, this chief underwriter will sign off. Discussed case with Dr. Maldonado. Thank you very much for letting me participate in the care of your patient. Brigida Hernandez MD EMERSON
--- NOTE | 2018-06-15 17:03 | CP.PCM.PCO ---
Physician Communication Note - Physician Communication Note Physician Communication Note: pt was d/c
== END 2018-06-14 14:00 | disposition left against medical advice (07) | DRG 584 ==
LOC: ED 18:56 → ERH 21:03 → CCU 23:21
PROVIDERS: ADMIT Hospitalist; ATTEND Internal Medicine
DX: A41.9 Sepsis, unspecified organism (principal); J69.0 Pneumonitis due to inhalation of food and vomit; J96.90 Respiratory failure, unspecified, unspecified whether with hypoxia or hypercapnia; M62.82 Rhabdomyolysis; N17.9 Acute kidney failure, unspecified; E87.2 Acidosis; E87.5 Hyperkalemia; E87.8 Other disorders of electrolyte and fluid balance, not elsewhere classified; F10.239 Alcohol dependence with withdrawal, unspecified; I07.1 Rheumatic tricuspid insufficiency; R56.9 Unspecified convulsions; E16.2 Hypoglycemia, unspecified; F10.229 Alcohol dependence with intoxication, unspecified; F16.129 Hallucinogen abuse with intoxication, unspecified; F17.200 Nicotine dependence, unspecified, uncomplicated; G93.40 Encephalopathy, unspecified; I27.20 Pulmonary hypertension, unspecified; R65.20 Severe sepsis without septic shock; T39.1X1A Poisoning by 4-Aminophenol derivatives, accidental (unintentional), initial encounter; T40.2X1A Poisoning by other opioids, accidental (unintentional), initial encounter; T51.0X1A Toxic effect of ethanol, accidental (unintentional), initial encounter; Y90.1 Blood alcohol level of 20-39 mg/100 ml; Z78.1 Physical restraint status; R40.2414 Glasgow coma scale score 13-15, 24 hours or more after hospital admission